=== PATIENT | female | born 1985 | race Caucasian/White ===

== ENCOUNTER 2018-10-20 19:07 | Emergency (ER) | payer OTHER ==
[~2018-10-20] VITALS: Ht 162.6 cm; Wt 79.4 kg
[~2018-10-20 19:07] MED LIST: BAYER CHEWABLE81 MG PO; GLYBURIDE1.25 MG PO; LEVOXYL137 MCG PO; NAPROXEN500 MG PO; PERCOCET 5-3251 EACH PO; SYNTHROID112 MCG PO; SYNTHROID200 MCG PO; VITAMIN C500 M1 PO; VITAMIN D1000 UNIT PO
--- OUTSIDE RECORDS SUMMARY | 2018-10-20 19:12 | XMS ---
PreManage Notification: EL CLARK Security Powder Hand Events No recent Security Events currently on file CRITERIA MET - [facility] - 2 Visits in 30 Days CARE PROVIDERS There are no care providers on record at this time. Darryl has no Care Guidelines for this patient. oCrby VISIT COUNT (12 MO.) [facility] NOTE: Visits indicate total known visits. ED/C VISIT TRACKING (12 MO.) 10/20/2018 19:08 [facility] [place] TYPE: Emergency COMPLAINT: - VAGINAL DISCHARGE 10/18/2018 12:26 [facility] [place] TYPE: Emergency COMPLAINT: - ABD PAIN INPATIENT VISIT TRACKING (12 MO.) No inpatient visits to display in this time frame [email or web address]
== END 2018-10-20 20:38 | disposition home or self-care (01) ==
LOC: ED 19:07
DX: O03.9 Complete or unspecified spontaneous abortion without complication (principal); E03.9 Hypothyroidism, unspecified; F17.200 Nicotine dependence, unspecified, uncomplicated; Z91.048 Other nonmedicinal substance allergy status; Z91.041 Radiographic dye allergy status; Z88.1 Allergy status to other antibiotic agents; Z79.899 Other long term (current) drug therapy
CPT/HCPCS: 99283

== ENCOUNTER 2018-12-12 06:56 | Day surgery (SDC) | payer OTHER ==
[~2018-12-12] VITALS: Ht 162.6 cm; Wt 83.9 kg
--- NOTE | 2018-12-12 09:41 | NUR ---
12/12/18 0941 Kia Mooney 0931- PT ARRIVES TO PACU ALERT AND ORIENTED. REPORTS SOME CRAMPING PAIN. DENIES NAUSEA OR DIZZINESS. RESP EVEN AND UNLABORED. OXYGEN SAT MID 90'S ON RA. 0937- PT SITTING UP IN BED DRINKING WATER. TOLERATING WELL. PT REPORTS NO DIZZINESS OR NAUSEA.
[2018-12-12] MEDS ORDERED: MOTRIN IB200 MG PO ×2 (09:47→09:49)
[2018-12-12] MEDS ORDERED: NORCO 5-325 TA1 EACH PO (09:48)
--- NOTE | 2018-12-13 07:53 | EKG ---
[facility] [address] [facility] [place] [address] Signed Normal sinus rhythm Normal ECG No previous ECGs available Confirmed by ALFONSO DOBSON MD ([id number]) on 12/13/2018 7:53:16 AM Electronically Signed By: ALFONSO DOBSON MD 12/13/18 0753 PATIENT NAME: EDUARDONATHanna GILLIAN Electrocardiogram DATE OF : 89 PHYSICIAN: ALFONSO DOBSON MD REPORT #: [id number] REPORT IS CONFIDENTIAL AND NOT TO BE RELEASED WITHOUT AUTHORIZATION
--- NOTE | 2018-12-18 13:48 | OR ---
[facility] [address] [place] [address] Signed DATE OF OPERATION: 12/12/2018 SURGEON: Jordan Mcgee DO PREOPERATIVE DIAGNOSES: 1. Abnormal uterine bleeding. 2. Thickened endometrium consistent with retained products of conception. 3. Tobacco use disorder. POSTOPERATIVE DIAGNOSES: 1. Abnormal uterine bleeding. 2. Thickened endometrium, however, no evidence of retained products of conception. 3. Tobacco use. PROCEDURES PERFORMED: 1. Hysteroscopy. 2. Dilation and curettage. ANESTHESIA: MAC. ESTIMATED BLOOD LOSS: 10 mL. FLUIDS: Fluid deficit, 235 mL. SPECIMENS: Endometrial curettings. FINDINGS: Normal external genitalia. Normal vagina and normal cervix. On hysteroscopy, normal cervical canal and normal-appearing uterine cavity without evidence of fibroids or polyps. The endometrium does look somewhat thickened. Tubal ostia are normal bilaterally. COMPLICATIONS: None. INDICATIONS: Electronically Signed By: JORDAN MCGEE DO 12/18/18 1348 PATIENT NAME: EL AGUILAR OPERATIVE REPORT DATE OF : [birth year] REPORT #: [id number] PHYSICIAN: JORDAN MCGEE DO PCP: PALLAVI BRITO REPORT IS CONFIDENTIAL AND NOT TO BE RELEASED WITHOUT AUTHORIZATION [facility] [address] [place] [id number] Signed Ms. Aguilar is a pleasant 33-year-old female who had a recent miscarriage with documented decreasing quant hCGs. This was approximately 2 months ago. She has continued to bleed since the miscarriage and does not believe she passed any products of conception. Quant hCG was negative. However, ultrasound demonstrated thickened endometrium that was heterogeneous consistent with retained products of conception. The patient was consented for hysteroscopy, D and C. Risks, benefits, and alternatives were discussed in detail with the patient. The patient has an allergy to doxycycline, was not given doxycycline preoperatively. DESCRIPTION OF PROCEDURE: The patient taken to the operating room and time-out was performed to confirm correct patient, correct procedure. MAC anesthesia was adequately established and the patient was prepped and draped in the dorsal lithotomy position with feet in Yellofin stirrups. ICPs were on running and no preop heparin was indicated. Again, doxycycline was deferred due to her allergy. The weighted speculum was placed in the vagina and the anterior lip of the cervix was grasped with an Allis clamp. The cervix was serially dilated using Hegar dilators to a #7. Operative hysteroscope was placed in the cervical os and advanced under direct visualization of the uterine cavity. Normal cervical canal was noted. Once in the uterine cavity, normal tubal ostia were noted bilaterally. No intrauterine abnormalities noted except for slightly thickened endometrium. Decision was made to proceed with curettage. A MyoSure Lite device was selected and circumferential curettage was performed without difficulty. The hysteroscope was withdrawn. Hemostasis was appreciated. The patient was taken to PACU in good and stable condition. Sponge, needle, and instrument counts were correct x2 at the end of the procedure. DO CAITLYN Crhistianson/DESTIN /[id number] Copies: Electronically Signed By: JORDAN MCGEE, DO 12/18/18 1348 PATIENT NAME: EL AGUILAR OPERATIVE REPORT DATE OF : [birth year] REPORT #: [id number] PHYSICIAN: JORDAN MCGEE DO PCP: PALLAVI BRITO REPORT IS CONFIDENTIAL AND NOT TO BE RELEASED WITHOUT AUTHORIZATION [address] [address] Signed ~ Electronically Signed By: JORDAN MCGEE, DO 12/18/18 1348 PATIENT NAME: EL AGUILAR OPERATIVE REPORT DATE OF : [birth year] REPORT #: [id number] PHYSICIAN: JORDAN MCGEE DO PCP: PALLAVI BRITO REPORT IS CONFIDENTIAL AND NOT TO BE RELEASED WITHOUT AUTHORIZATION
== END 2018-12-12 10:05 | disposition home or self-care (01) ==
LOC: DS 06:56 → OPS 06:56 → DS 08:45 → OPS 10:05
PROVIDERS: Obstetrics & Gynecology
PROC: 0UDB8ZZ Extraction of Endometrium, Via Natural or Artificial Opening Endoscopic (ICD-10-PCS; principal; 2018-12-12 08:45)
DX: N93.9 Abnormal uterine and vaginal bleeding, unspecified (principal); R93.89 Abnormal findings on diagnostic imaging of other specified body structures; E03.9 Hypothyroidism, unspecified; E06.3 Autoimmune thyroiditis; F17.210 Nicotine dependence, cigarettes, uncomplicated; Z88.1 Allergy status to other antibiotic agents; Z91.041 Radiographic dye allergy status; Z79.899 Other long term (current) drug therapy
CPT/HCPCS: 00952; 93005; 93010; J1100; J1885; J2250; J2405; J2704; J3010; J7120

== ENCOUNTER → 2019-08-22 | Emergency (ER) | payer SELFPAY ==
[~2019-08-22] VITALS: Ht 162.6 cm; Wt 83.9 kg
[~2019-08-22] MED LIST changes: +ACETAMINOPHEN-1 EAC1 PO; +CRUTCH1 EACH MISC; +MOTRIN IB200 MG PO; +NORCO 5-325 TA1 EACH PO
--- OUTSIDE RECORDS SUMMARY | ~2019-08-22 | XMS | Encounter Summary ---
Demographics + + + | Address | [address] | | | [place] [address] | + + + | Home Phone | | + + + | Preferred Language | Unknown | + + + | Marital Status | | + + + | Protestant Affiliation | Unknown | + + + | Race | White | + + + | Ethnic Group | Not or | + + + Author + + + | Author | [facility] | + + + | Organization | [facility] | + + + | Address | Unknown | + + + | Phone | Unavailable | + + + Support + + +---------+ + | Name | Relationship | Address | Phone | + + +---------+ + | Brittnee Wells | ECON | Unknown | | + + +---------+ + Care Team Providers + +------+ + | Care Blowing Engineer Name | Role | Phone | + +------+ + | Zoe Stephen | PCP | | + +------+ + Reason for Visit + + + | Reason | Comments | + + + | Prior Authorization | | | Request | | + + + Encounter Details +--------+ + + + + | Date | Type | Department | Care Team | Description | +--------+ + + + + | 06/08/ | MyChart | University | Koki Jha MD | Prior Authorization | | 2016 | Encounter | Fertility | [address] | | | | | Consultants at [facility] | [place], [place] | | | | | [address] | [address] | | | | | Mailcode: [facility] | [phone] | | | | | [facility] | | | | | | and Healing, | | | | | | Building | | | | | | Floor [place], [place] | | | | | | [address] | | | | | | [phone] | | | +--------+ + + + + Social History + + + +--------+------+ | Tobacco Use | Types | Packs/Day | Years | Date | | | | | Used | | + + + +--------+------+ | Current Every Day | Cigarettes | 0.5 | | | | Smoker | | | | | + + + +--------+------+ + + +---------+ + | Alcohol Use | Drinks/Week | oz/Week | Comments | + + +---------+ + | Yes | 0 Standard drinks | 0.0 | weekend drinking | | | or equivalent | | | + + +---------+ + + + + | Sex Assigned at | Date Recorded | | | | + + + | Not on file | | + + + + + + + | Job Start Date | Occupation | Industry | + + + + | Not on file | Not on file | Not on file | + + + + + + + + | Travel History | Travel Start | Travel End | + + + + + + | No recent travel history available. | + + documented as of this encounter Plan of Treatment Not on filedocumented as of this encounter Visit Diagnoses Not on filedocumented in this encounter"
--- OUTSIDE RECORDS SUMMARY | ~2019-08-22 | XMS | Encounter Summary ---
Demographics + + + | Address | [address] | | | [place] [address] | + + + | Home Phone | | + + + | Preferred Language | Unknown | + + + | Marital Status | | + + + | Baptist Affiliation | Unknown | + + + | Race | White | + + + | Ethnic Group | Not or | + + + Author + + + | Author | [facility] | + + + | Organization | [facility] | + + + | Address | Unknown | + + + | Phone | Unavailable | + + + Support + + +---------+ + | Name | Relationship | Address | Phone | + + +---------+ + | Brittnee Wells | ECON | Unknown | | + + +---------+ + Care Team Providers + +------+ + | Care Pharmacy Sales Assistant Name | Role | Phone | + +------+ + | Zoe Stephen | PCP | | + +------+ + Encounter Details +--------+ + + + + | Date | Type | Department | Care Team | Description | +--------+ + + + + | 10/30/ | Documentati | [facility]antoja | Paul Wheatley MD | | | 2017 | on | Diabetes Health | [address] | | | | | [facility] | Avani Zhang [place], | | | | | Pavilion [address] | [place] [address] | | | | | [address] | [phone] | | | | | Physician's | | | | | | Pavilion | | | | | | [facility] Pav[facility] | | | | | | [place], [place] | | | | | | [address] | | | | | | [phone] | | | +--------+ + + + [...] Not on filedocumented as of this encounter Procedures + +--------+ + + + | Procedure Name | Priori | Date/Time | Associated Diagnosis | Comments | | | ty | | | | + +--------+ + + + | TSH | Routin | 10/30/2016 | | Results for this | | | e | | | procedure are in the | | | | | | results section. | + +--------+ + + + documented in this encounter Results TSH (10/30/2016) + +-------+ + + + | Component | Value | Ref Range | Performed | Pathologist | | | | | At | Signature | + +-------+ + + + | TSH | 0.58 | uIU/ml | [facility] | | | | | | LAB | | + +-------+ + + + + + | Specimen | + + | Blood - Blood | | (substance) | + + + + + + + | Performing | Address | City/State/Zipcode | Phone Number | | Organization | | | | + + + + + | [facility] | [address] | [place], [place] | | | | [facility] | [address] | | + + + + + documented in this encounter Visit Diagnoses Not on filedocumented in this encounter"
--- OUTSIDE RECORDS SUMMARY | ~2019-08-22 | XMS | Encounter Summary ---
Demographics + + + | Address | [address] | | | [place] [address] | + + + | Home Phone | | + + + | Preferred Language | Unknown | + + + | Marital Status | | + + + | Lutheran Affiliation | Unknown | + + + | Race | White | + + + | Ethnic Group | Not or | + + + Author + + + | Author | [facility] | + + + | Organization | [facility] | + + + | Address | Unknown | + + + | Phone | Unavailable | + + + Support + + +---------+ + | Name | Relationship | Address | Phone | + + +---------+ + | Brittnee Wells | ECON | Unknown | | + + +---------+ + Care Team Providers + +------+ + | Care Farm Loan Representative Name | Role | Phone | + +------+ + | Zoe Stephen | PCP | | + +------+ + Reason for Visit + + + | Reason | Comments | + + + | Lab findings, | | | teaching, guidance, | | | and counseling | | + + + Encounter Details +--------+ + + + + | Date | Type | Department | Care Team | Description | +--------+ + + + + | 07/07/ | Telephone | Juan | Koki Jha MD | Lab findings, | | 2016 | | Fertility | [address] | teaching, guidance, | | | | Consultants at [facility] | [place], [place] | and counseling | | | | [address] | [address] | | | | | Mailcode: [id number] | [phone] | | | | | [facility] | | | | | | and Healing, | | | | | | Building | | | | | | [place], [place] | | | | | | [address] | | | | | | [phone] | | | +--------+ + + + [...] | + +--------+ + + + | PROGESTERONE, SERUM | Routin | 07/09/2016 | Encounter for | Results for this | | - ANDROLOGY LAB | e | | assisted | procedure are in the | | | | | reproductive | results section. | | | | | fertility procedure | | | | | | cycle | | + +--------+ + + + | ESTRADIOL, SERUM - | Routin | 07/09/2016 | Encounter for | Results for this | | ANDROLOGY LAB | e | | assisted | procedure are in the | | | | | reproductive | results section. | | | | | fertility procedure | | | | | | cycle | | + +--------+ + + + documented in this encounter Results PROGESTERONE, SERUM - ANDROLOGY LAB (07/09/2016) + +-------+ + + + | Component | Value | Ref Range | Performed | Pathologist | | | | | At | Signature | + +-------+ + + + | PROGESTERON | <1 | ng/ml | [facility] | | | E, SERUM | | | OGY LAB | | | (UFC) | | | | | + +-------+ + + + + + | Specimen | + + | Blood | + + + + + | Narrative | Performed At | + + + | Progesterone (ng/ml) Ovulatory Cycles Follicular Phase: | | | ND-1.13 Midfollicular Phase: ND-0.98 Midcycle: 0.48-1.72 Luteal | [facility] | | Phase: 0.95-21 | LAB | + + + + + + + + | Performing | Address | City/State/Zipcode | Phone Number | | Organization | | | | + + + + + | [facility] | [address], | [place] [address] | | | | Tenth Floor | | | + + + + + ESTRADIOL, SERUM - ANDROLOGY LAB (07/09/2016) + +-------+ + + + | Component | Value | Ref Range | Performed | Pathologist | | | | | At | Signature | + +-------+ + + + | ESTRADIOL, | 1,299 | pg/ml | [facility] | | | SERUM (UFC) | | | OGY LAB | | + +-------+ + + + + + | Specimen | + + | Blood | + + + + + | Narrative | Performed At | + + + | Estradiol (pg/ml) Ovulatory Cycles Follicular Phase: ND-160 | | | Follicular Phase, Day 2-3: Periovulatory: 34-400 Luteal | [facility] | | Phase: 27-245 | LAB | + + + + + + + + | Performing | Address | City/State/Zipcode | Phone Number | | Organization | | | | + + + + + | [facility] | [address] | [place] [address] | | | | Tenth Floor | | | + + + + + documented in this encounter Visit Diagnoses + + | Diagnosis | + + | Encounter for assisted reproductive fertility procedure cycle - Primary | + + documented in this encounter"
--- OUTSIDE RECORDS SUMMARY | ~2019-08-22 | XMS | Encounter Summary ---
Demographics + + + | Address | [address] | | | [place] [address] | + + + | Home Phone | | + + + | Preferred Language | Unknown | + + + | Marital Status | | + + + | Scientology Affiliation | Unknown | + + + | Race | White | + + + | Ethnic Group | Not or | + + + Author + + + | Author | [facility] | + + + | Organization | [facility] | + + + | Address | Unknown | + + + | Phone | Unavailable | + + + Support + + +---------+ + | Name | Relationship | Address | Phone | + + +---------+ + | Brittnee Wells | ECON | Unknown | | + + +---------+ + Care Team Providers + +------+ + | Care Clergy Member Name | Role | Phone | + +------+ + | Zoe Stephen | PCP | | + +------+ + Reason for Referral Consultation (Routine) +--------+--------+ + + + + | Status | Reason | Specialty | Diagnoses / | Referred By | Referred To | | | | | Procedures | Contact | Contact | +--------+--------+ + + + + | Closed | | | Diagnoses | Abhijeet, | Pnc | | | | | Abnormal | MD Koki | Perinatology | | | | | thyroid | [address] | [address] | | | | | blood test | Ave | [address] | | | | | Procedures | [place] | Geovany Zhang | | | | | CONSULT TO | [phone] | Physician's | | | | | PERINATOLOGY | Phone: | [place] | | | | | | [phone] | [facility] [place] | | | | | | Fax: | [address] | | | | | | [phone] | Phone: | | | | | | | [phone] | | | | | | | Fax: | | | | | | | [phone] | +--------+--------+ + + + + Reason for Visit + + + | Reason | Comments | + + + | Care Coordination | | + + + Encounter Details +--------+ + + + + | Date | Type | Department | Care Team | Description | +--------+ + + + + | 04/04/ | [facility] | [place] | Koki Jha MD | RE:IVF Timeline | | 2016 | Encounter | Fertility | [address] | | | | | Consultants at [facility] | [place], [place] | | | | | [address] | [address] | | | | | Mailcode: [facility] | [phone] | | | | | [facility] | | | | | | and Healing, | | | | | | Building | | | | | | Floor [place], [place] | | | | | | [address] | | | | | | [phone] | | | +--------+ + + + [...] Not on filedocumented as of this encounter Results TSH (05/18/2016 3:18 PM PDT) + +-------+ + + + | Component | Value | Ref Range | Performed | Pathologist | | | | | At | Signature | + +-------+ + + + | TSH | 3.04 | 0.40 - 3.98 | [facility] | | | | | mIU/L | LABORATORY | | | | | | SERVICES, | | | | | | CORE | | + +-------+ + + + + + | Specimen | + + | Blood - Blood | | (substance) | + + + + + | Narrative | Performed At | + + + | TSH reference ranges are influenced by a variety of environmental | [facility] | | influences, age, gender and ethnicity. The supplied reference limits | LABORATORY | | are based on published values utilizing a similar TSH assay, and | SERVICES, CORE | | should be interpreted with caution. | | + + + + + + + + | Performing | Address | City/State/Zipcode | Phone Number | | Organization | | | | + + + + + | [facility] | [address] | [place] [address] | | | SERVICES, CORE | [address] | | | + + + + + VITAMIN D, 25-HYDROXY, SERUM (05/18/2016 3:18 PM PDT) + +-------+ + + + | Component | Value | Ref Range | Performed | Pathologist | | | | | At | Signature | + +-------+ + + + | VITAMIN D | 37.3 | 30 - 80 ng/mL | [facility] | | | 25 HYDROXY | | | LABORATORY | | | | | | SERVICES, | | | | | | CORE | | + +-------+ + + + + + | Specimen | + + | Blood - Blood | | (substance) | + + + + + | Narrative | Performed At | + + + | Reference Interval: 0-18years: Deficiency: <20 ng/mL | [facility] | | Optimum level: >or=20 ng/mL | LABORATORY | | >18years: Deficiency: <20 | SERVICES, CORE | | ng/mL Insufficiency: 20-29 ng/mL | | | Optimum Level: 30-80 ng/mL High: | | | 81-150 ng/ml Toxic: >150 ng/mL | | + + + + + + + + | Performing | Address | City/State/Zipcode | Phone Number | | Organization | | | | + + + + + | [facility] | [address] | [place] [address] | | | SERVICES, [place] | [address] | | | + + + + + documented in this encounter Visit Diagnoses + + | Diagnosis | + + | Encounter for vitamin deficiency screening - Primary Screening for other and | | unspecified endocrine, nutritional, metabolic, and immunity disorders | + + | Screening for viral disease Special screening examination for unspecified viral | | disease | + + | Screen for sexually transmitted diseases Screening examination for venereal disease | + + | Abnormal thyroid blood test Nonspecific abnormal results of thyroid function study | + + documented in this encounter"
--- OUTSIDE RECORDS SUMMARY | ~2019-08-22 | XMS | Encounter Summary ---
Demographics + + + | Address | [address] | | | [place] [address] | + + + | Home Phone | | + + + | Preferred Language | Unknown | + + + | Marital Status | | + + + | Caodaism Affiliation | Unknown | + + + | Race | White | + + + | Ethnic Group | Not or | + + + Author + + + | Author | [facility] | + + + | Organization | [facility] | + + + | Address | Unknown | + + + | Phone | Unavailable | + + + Support + + +---------+ + | Name | Relationship | Address | Phone | + + +---------+ + | Brittnee Wells | ECON | Unknown | | + + +---------+ + Care Team Providers + +------+ + | Care Intensive Care Anaesthetist Name | Role | Phone | + +------+ + | Zoe Stephen | PCP | | + +------+ + Reason for Visit + + + | Reason | Comments | + + + | Suppression Check | | + + + Other (Routine) +--------+--------+ + + + + | Status | Reason | Specialty | Diagnoses / | Referred By | Referred To | | | | | Procedures | Contact | Contact | +--------+--------+ + + + + | Closed | | Reproductive | | Abhijeet, | [facility] | | | | Endocrinology | | MD Koki | Faculty Ch | | | | /Infertility | | [address] | [address] | | | | | | Ave | Ave | | | | | | [place], [place] | Mailcode: | | | | | | [address] | [address] | | | | | | Phone: | for Health | | | | | | [phone] | and Healing, | | | | | | Fax: | [address], | | | | | | [phone] | 10th Floor | | | | | | | [place], [place] | | | | | | | [address] | | | | | | | Phone: | | | | | | | [phone] | | | | | | | Fax: | | | | | | | [phone] | +--------+--------+ + + + + Encounter Details +--------+ + + + + | Date | Type | Department | Care Team | Description | +--------+ + + + + | 06/28/ | Procedure | University | Coleman Emery MD | Suppression Check | | 2016 | | Fertility | [address] | | | | | Consultants at [facility] | [place], [place] | | | | | [address] | [address] | | | | | Mailcode: CH10[facility] | [phone] | | | | | [facility] | | | | | | and Mariah, | | | | | | Building | | | | | | Floor [place], [place] | | | | | | [address] | | | | | | [phone] | | | +--------+ + + + [...] + + documented as of this encounter Progress Notes Coleman Emery MD - 06/28/2016 8:46 AM PDTFormatting of this note might be different from t tessie original. ENDOCRINE MANAGEMENT PROGRESS NOTE 06/28/2016 Day of stimulation: ATTAIN US/E2; Supp Check for Lupron Protocol: 1 HMG / 100 FSH w/Ovidrel Trigger - Abhijeet/hrf Comments: Indication: INF Approach: transvaginal Systems checklist: negative for uterine polyps, myomas, fluid in cavity, ovarian mass and f luid in cul-de-sac. Estradiol level: Lab Results Component Value Date ESTRADIOL 43.2 06/28/2016 Progesterone level: Lab Results Component Value Date PROG 8.9 11/16/2015 FOLLICLE EXAMINATION / ENDOMETRIAL THICKNESS Endometrial thickness: 3.7mm Grade: 1 LARGEST FOLLICLES (Measured in Millimeters) RIGHT OVARY VOLUME: 61f57gj Suppressed LEFT OVARY VOLUME: 60y49zm Suppressed 1 mean 1 mean 2 mean 2 mean 3 mean 3 mean 4 mean 4 mean 5 mean 5 mean 6 mean 6 mean 7 mean 7 mean 8 mean 8 mean 9 mean 9 mean 10 mean 10 mean Additional Follicles: Additional Follicles: Total Follicles: 6 Total Follicles: 6 Interpretation: suppressed by US Plan: check E2 I, Coleman Emery MD, performed all aspects of this ultrasound. documented in this encou nter Plan of Treatment Not on filedocumented as of this encounter Visit Diagnoses + + | Diagnosis | + + | Encounter for assisted reproductive fertility procedure cycle - Primary | + + documented in this encounter"
--- OUTSIDE RECORDS SUMMARY | ~2019-08-22 | XMS | Encounter Summary ---
Demographics + + + | Address | [address] | | | [place] [address] | + + + | Home Phone | | + + + | Preferred Language | Unknown | + + + | Marital Status | | + + + | Sikhism Affiliation | Unknown | + + + | Race | White | + + + | Ethnic Group | Not or | + + + Author + + + | Author | [facility] | + + + | Organization | [facility] | + + + | Address | Unknown | + + + | Phone | Unavailable | + + + Support + + +---------+ + | Name | Relationship | Address | Phone | + + +---------+ + | rBittnee Wells | ECON | Unknown | | + + +---------+ + Care Team Providers + +------+ + | Care Level Glass Forming Machine Operator Name | Role | Phone | + +------+ + | Zoe Stephen | PCP | | + +------+ + Reason for Visit + + + | Reason | Comments | + + + | Infertility Care | | + + + Consultation (Routine) +--------+--------+ + + + + [...] | | | | | Procedures | [place], [place] | [address] | | | | | CONSULT TO | [address] | Physician's | | | | | PERINATOLOGY | Phone: | Pavilion | | | | | | [phone] | [place], [place] | | | | | | Fax: | [address] | | | | | | [phone] | Phone: | | | | | | | [phone] | | | | | | | Fax: | | | | | | | [phone] | +--------+--------+ + + + + Encounter Details +--------+ + + + + | Date | Type | Department | Care Team | Description | +--------+ + + + + | 05/26/ | | Center | Byron Andrade | Infertility Care | | 2016 | Initial | at [facility] [address] MD,MPH [address] | | | | | [address] | [facility] [address] | | | | | [facility] | [address], | | | | | [facility] [place] | [place] [address] | | | | | [address] | [phone] | | | | | [phone] | | | +--------+ + + + [...] + + documented as of this encounter Last Filed Vital Signs + + + + + | Vital Sign | Reading | Time Taken | Comments | + + + + + | Blood Pressure | 128/89 | 05/26/2016 10:58 AM | | | | | PDT | | + + + + + | Pulse | 82 | 05/26/2016 10:58 AM | | | | | PDT | | + + + + + | Temperature | - | - | | + + + + + | Respiratory Rate | - | - | | + + + + + | Oxygen Saturation | 99% | 05/26/2016 10:58 AM | | | | | PDT | | + + + + + | Inhaled Oxygen | - | - | | | Concentration | | | | + + + + + | Weight | 84.1 kg (185 lb 6.5 | 05/26/2016 10:58 AM | | | | oz) | PDT | | + + + + + | Height | 162.6 cm (5' 4") | 05/26/2016 10:58 AM | | | | | PDT | | + + + + + | Body Mass Index | 31.83 | 05/26/2016 10:58 AM | | | | | PDT | | + + + + + documented in this encounter Progress Notes Raymond Antoine, Byron - 05/27/2016 11:04 AM PDTFormatting of this note might be different fro m the original. MFM New Consultation Referring Provider: [facility] Fertility Reason for consultation: Pre-Conception Consult Date of service: 05/27/2016 CC/HPI: 30 y.o., with hypothyroidism, borderline diabetes, for Pre-conception con sult for IVF planning with tubal factor infertility. ROS: Regular cycles. No f/c/n/v, no back pain / flank pain, no GI / complaints. No ru q pain / visual changes / headache. PMH: Hypothyroidism, borderline diabetes, vit D deficiency, infertility PSH: remote umbilical hernial repair FH: Mother and aunt with diabetes on metformin; Patient is a twin and she has additional pair of twin sisters (2 sets) Family History Problem Relation Thyroid Mother OBH: Early SAB x2 6-7 yrs ago OB History Para Term AB SAB TAB Ectopic Multiple Living 2 0 2 2 # Outcome Date GA Lbr Chris/2nd Weight Sex Delivery Anes PTL Lv 2 SAB 1 SAB Meds: PNV, vit D, levothyroxine 175mcg Allergies Allergen Reactions Contrast Medium Hives Doxycycline Hyclate Hives Filed Vitals: 05/26/2016 10:58 AM Height: 1.626 m (5' 4") Weight: 84.1 kg (185 lb 6.5 oz) BP: 128/89 Pulse: 82 SpO2: 99% BMI: 31.81 kg/(m^2) Exam- Gen- NAD, comfortable, well appearing Psych- Mood and behavior appropriate Lab Results Component Value Date A1C 5.9* 05/26/2016 Lab Results Component Value Date TSH 3.04 05/18/2016 Patient Active Problem List Diagnosis Date Noted Borderline diabetes 05/27/2016 Overview Note: Hgb A1C 5.9% Assessment & Plan Note: 05/26/16. We reviewed borderline diabetes screen with Hgb A1C%, also referred to as "pre-d iabetes". She does not meet criteria for overt T2DM. We reviewed importance of dietary c hoices, exercise and maintenance of healthy weight. We reviewed that women with borderline diabetes may have higher risk of glucose intolerance or mayra gestational diabetes in early . Diabetes in increases risk for anomaly, loss, g rowth abnormalities, and preeclampsia. For women with borderline diabetes en tering there is no clear benefit of metformin. Especially since she appears to h ave normal ovulatory cycles and does not carry a diagnosis of PCOS. Her infertility is repo rted as tubal factor. We did review metformin use for potential benefit, but patient had G I intolerance to metformin in the past (which she tried as part of fertility planning with [facility]). She would prefer dietary modification and light exercise and I agreed that this is reasonable. Overall, I feel comfortable with her pursuing IVF at this time. We agreed not t o pursue metformin, but will maintain healthy lifestyle choices to optimize health going int o . I would recommend early glucola challenge in (2hr GTT). If this is abnormal, we would recommend glucometer, CBG log and nutrition consult. If she was unable t o meet specific glucose targets, medications such as metformin or insulin will be recommende d. Finally, we reviewed her plan for 2-embryo transfer and risk of multiple gestation. We discussed heightened risks of GDM, and preeclampsia in this scenario. She ex pressed understanding and she notes that she herself is a twin, and her mother gave to two sets of twins. She will take today's information into consideration in her IVF planning. 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 We reviewed hypothyroidism with +anti-TPO antibodies and possible impact on futu re . Previously had TSH level of 40 in February but responded well to levothyroxine 17 5mcg. TSH decreased to 0.92 on 05/03 but then increased to 3.0 on 05/18. We reviewed importa nce of compliance with treatment and we reviewed optimal strategy of taking her thyroid medi cation on an empty stomach 30-60 min prior to meals. Substances such as calcium may impair absorption. We reviewed goal TSH <2.5-3.0 to optimize outcomes. Poorly controlle d thyroid disorder can increase risk for loss, growth restriction, preeclamp gopal. High TSH levels (low thyroid hormone levels) in may also impact neurodevelop ment in offspring. At current TSH level, and in light of ongoing treatment, she may pursue IVF without further modification. We would repeat TFT's 4-6 wks in until thyroid hormone / TSH level s are at goal. Thyroid medication often needs to be titrated up in later due to i ncrease /placental demands over . Plan: -- Ok to pursue IVF planning -- Continue Levothyroxine at 175mcg; take on empty stomach 30-60 min before meals -- Dietary modification and light exercise in light of borderline DM -- Per patient preference, follow up with MFM or General OB for care -- Early Glucose challenge with I spent 45 minutes aekh-sl-tptu with the patient of which over 50% was spent in counseling regarding hypothyroidism, borderline diabetes, pre-conception care Byron Andrade MD, MPH Maternal Medicine documented in this en counter Plan of Treatment Not on filedocumented as of this encounter Visit Diagnoses + + | Diagnosis | + + | 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
--- OUTSIDE RECORDS SUMMARY | ~2019-08-22 | XMS | Encounter Summary ---
Demographics + + + | Address | [address] | | | [place] [address] | + + + | Home Phone | | + + + | Preferred Language | Unknown | + + + | Marital Status | | + + + | Anabaptism Affiliation | Unknown | + + + | Race | White | + + + | Ethnic Group | Not or | + + + Author + + + | Author | [facility] | + + + | Organization | [facility] | + + + | Address | Unknown | + + + | Phone | Unavailable | + + + Support + + +---------+ + | Name | Relationship | Address | Phone | + + +---------+ + | Brittnee Wells | ECON | Unknown | | + + +---------+ + Care Team Providers + +------+ + | Care Production Boring Machine Operator Name | Role | Phone | + +------+ + | Zoe Stephen | PCP | | + +------+ + Reason for Visit + + + | Reason | Comments | + + + | Trial Transfer | | + + + | Ultrasound Follicle | | | Exam | | + + + Other (Routine) +--------+--------+ + + + + | Status | Reason | Specialty | Diagnoses / | Referred By | Referred To | | | | | Procedures | Contact | Contact | +--------+--------+ + + + + | Closed | | Reproductive | | Abhijeet, | [facility] | | | | Endocrinology | | MD Koki | [facility] | | | | /Infertility | | [address] | [address] | | | | | | Ave | Ave | | | | | | [place], [place] | Mailcode: | | | | | | [address] | [facility] | | | | | | Phone: | for Health | | | | | | [phone] | and Healing, | | | | | | Fax: | Building [address], | | | | | | [phone] | 10th Floor | | | | | | | [place], [place] | | | | | | | [address] | | | | | | | Phone: | | | | | | | [phone] | | | | | | | Fax: | | | | | | | [phone] | +--------+--------+ + + + + Encounter Details +--------+ + + + + | Date | Type | Department | Care Team | Description | +--------+ + + + + | 07/13/ | Procedure | [facility] | Aarti Christian MD | Trial Transfer; | | 2016 | | Fertility | [address] | Ultrasound Follicle | | | | Consultants at [facility] | [address] [place], | Exam | | | | [address] | [place] [address] | | | | | Mailcode: [facility] | [phone] | | | | | [facility] | | | | | | and Healing, | | | | | | Building | | | | | | Floor [place], [place] | | | | | | [address] | | | | | | [phone] | | | +--------+ + + + [...] documented as of this encounter Progress Notes Aarti Christian MD - 05/03/2016 2:56 PM PDTFormatting of this note might be different from scott de oliveira original. Name: Melo Aguilar Date 05/03/2016 LMP: No LMP recorded. Screening Ultrasound: Approach: transvaginal Indication: TT/AFC for IVF screening Basal Antral Follicles: Right ovary: , BAF count: 12 follices Left ovary: , BAF count: 15-16 follicles TT: APARQ was done prior to the procedure. Using sterile techniques a catheter was introduced t hrough the cervix and advanced into the uterine cavity. Trial transfer Depth Position Catheter 6.1cm by US Sharply AV Soft pass Interpretation: Sharply AV uterus, TT without difficulty High BAF Uncontrolled hypothyroidism Plan: Await repeat TFT's Complete Vit D replacement IVF protocol per Aarti Martin MD, personally performed all components of this procedure. documented in this encoun ter Plan of Treatment Not on filedocumented as of this encounter Procedures + +--------+ + + + | Procedure Name | Priori | Date/Time | Associated Diagnosis | Comments | | | ty | | | | + +--------+ + + + | [place] TRANSFER OF | Routin | 05/03/2016 | Encounter for | | | EMBRYO,INTRAUTERINE | e | 3:01 PM | assisted | | | | | PDT | reproductive | | | | | | fertility procedure | | | | | | cycle | | + +--------+ + + + | COLLECTIONS PROFESSIONAL CYTOLOGY (PAP) | Routin | 05/03/2016 | Cervical cancer | Results for this | | | e | | screening | procedure are in the | | | | | | results section. | + +--------+ + + + documented in this encounter Results COLLECTIONS PROFESSIONAL CYTOLOGY (PAP) (05/03/2016) + + + + + + | Component | Value | Ref Range | Performed | Pathologist | | | | | At | Signature | + + + + + + | COLLECTIONS PROFESSIONAL | SOURCE OF SPECIMEN: | | [facility] | | | CYTOLOGY | CervicalReason for | | DEPARTMENT | | | | Examination: Screening | | OF | | | | Pap (Low Risk)CLINICAL | | PATHOLOGY | | | | HISTORY: OtherPrevious | | | | | | Diagnosis and/or | | | | | | Therapy: IUD: N | | | | | | Interpretation:Negative | | | | | | for Intraepithelial | | | | | | Lesion or Malignancy. | | | | | | | | | | | | Adequacy:Satisfactory | | | | | | for evaluation. | | | | | | Transformation zone | | | | | | absent. Note: | | | | | | Gynecological cytology | | | | | | is a screening test that | | | | | | is subject toboth false | | | | | | positive and false | | | | | | negative results. For | | | | | | that reason, thetest is | | | | | | most reliable when a | | | | | | satisfactory sample is | | | | | | obtained on a | | | | | | regular,repetitive | | | | | | basis.If requested, HPV | | | | | | results will be reported | | | | | | in an addendum on all | | | | | | PAPsmears.My electronic | | | | | | signature indicates that | | | | | | I have personally | | | | | | reviewed alldiagnostic | | | | | | slides, the gross and/or | | | | | | microscopic portion of | | | | | | thisreport and | | | | | | formulated the final | | | | | | diagnosis. | | | | | | Rendering Diagnostician: | | | | | | Yazmin Mcintyre | | | | | | SCT([facility])Cytote[employer]ologis | | | | | | tElectronically Signed | | | | | | 05/05/2016 1:29PM | | | | + + + + + + + + | Specimen | + + | Tissue - Cervix | + + + + + | Narrative | Performed At | + + + | | | + + + + + + + + | Performing | Address | City/State/Zipcode | Phone Number | | Organization | | | | + + + + + | [facility] | [address] | [place] [address] | | | PATHOLOGY | [address] | | | + + + + + documented in this encounter Visit Diagnoses + + | Diagnosis | + + | Cervical cancer screening - Primary Screening for malignant neoplasm of the cervix | + + | Encounter for assisted reproductive fertility procedure cycle | + + documented in this encounter"
--- OUTSIDE RECORDS SUMMARY | ~2019-08-22 | XMS | Encounter Summary ---
Demographics + + + | Address | [address] | | | [place] [address] | + + + | Home Phone | | + + + | Preferred Language | Unknown | + + + | Marital Status | | + + + | Jain Affiliation | Unknown | + + + | Race | White | + + + | Ethnic Group | Not or | + + + Author + + + | Author | [facility] | + + + | Organization | [facility] | + + + | Address | Unknown | + + + | Phone | Unavailable | + + + Support + + +---------+ + | Name | Relationship | Address | Phone | + + +---------+ + | Brittnee Wells | ECON | Unknown | | + + +---------+ + Care Team Providers + +------+ + | Care Inspector Mechanical Name | Role | Phone | + +------+ + | Zoe Stephen | PCP | | + +------+ + Encounter Details +--------+ + + + + | Date | Type | Department | Care Team | Description | +--------+ + + + + | 04/25/ | Documentati | [facility] | Koki Jha MD | | | 2016 | on | Fertility | [address] | | | | | Consultants at [facility] | [place], [place] | | | | | [address] | [address] | | | | | Mailcode: [facility] | [phone] | | | | | [facility] | | | | | | and Healing, | | | | | | | | | | | | Floor [facility] [place] | | | | | | [address] | | | | | | [phone] | | | +--------+ + + + [...] | + +--------+ + + + | LAB REPORTS | | 04/21/2016 | | Results for this | | | | 12:00 AM | | procedure are in the | | | | PDT | | results section. | + +--------+ + + + documented in this encounter Results LAB REPORTS (04/21/2016 12:00 AM PDT) + + + | Narrative | Performed At | + + + | | | + + + documented in this encounter Visit Diagnoses Not on filedocumented in this encounter"
--- OUTSIDE RECORDS SUMMARY | ~2019-08-22 | XMS | Encounter Summary ---
Demographics + + + | Address | [address] | | | [place] [address] | + + + | Home Phone | | + + + | Preferred Language | Unknown | + + + | Marital Status | | + + + | Restorationism Affiliation | Unknown | + + + | Race | White | + + + | Ethnic Group | Not or | + + + Author + + + | Author | [facility] | + + + | Organization | [facility] | + + + | Address | Unknown | + + + | Phone | Unavailable | + + + Support + + +---------+ + | Name | Relationship | Address | Phone | + + +---------+ + | Brittnee Wells | ECON | Unknown | | + + +---------+ + Care Team Providers + +------+ + | Care Associate Genetics Professor Name | Role | Phone | + +------+ + | Zoe Stephen | PCP | | + +------+ + Encounter Details +--------+------+ + + + | Date | Type | Department | Care Team | Description | +--------+------+ + + + | 05/18/ | Lab | Laboratory at [facility] | | Encounter for | | 2015 | | [address] | | vitamin deficiency | | | | [place], [place] | | screening; Abnormal | | | | [address] | | thyroid blood test | | | | [phone] | | | +--------+------+ + + + Social History + + [...] | + +--------+ + + + | VITAMIN D, | Routin | 05/18/2016 | Encounter for | Results for this | | 25-HYDROXY, SERUM | e | 3:18 PM | vitamin deficiency | procedure are in the | | | | PDT | screening | results section. | + +--------+ + + + | TSH | Routin | 05/18/2016 | Abnormal thyroid | Results for this | | | e | 3:18 PM | blood test | procedure are in the | | | | PDT | | results section. | + +--------+ + + + documented in this encounter Results TSH (05/18/2016 3:18 PM [...] | + + + + + | [facility] | [address] | [place] [address] | | | SERVICES, CORE | [address] | | | + [...] | + + + + + | [facility] | [address] | [place] [address] | | | SERVICES, CORE | [address] | | | + + + + + documented in this encounter Visit Diagnoses + + | Diagnosis | + + | Encounter for vitamin deficiency screening Screening for other and unspecified | | endocrine, nutritional, metabolic, and immunity disorders | + + | Abnormal thyroid blood test Nonspecific abnormal results of thyroid function study | + + documented in this encounter"
--- OUTSIDE RECORDS SUMMARY | ~2019-08-22 | XMS | Encounter Summary ---
Demographics + + + | Address | [address] | | | [place] [address] | + + + | Home Phone | | + + + | Preferred Language | Unknown | + + + | Marital Status | | + + + | Jew Affiliation | Unknown | + + + | Race | White | + + + | Ethnic Group | Not or | + + + Author + + + | Author | [facility] | + + + | Organization | [facility] | + + + | Address | Unknown | + + + | Phone | Unavailable | + + + Support + + +---------+ + | Name | Relationship | Address | Phone | + + +---------+ + | Brittnee Wells | ECON | Unknown | | + + +---------+ + Care Team Providers + +------+ + | Care Form Setter Steel Forms Name | Role | Phone | + +------+ + | Zoe Stephen | PCP | | + +------+ + Encounter Details +--------+ + + + + | Date | Type | Department | Care Team | Description | +--------+ + + + + | 03/14/ | [facility] | [facility] | Paul Wheatley MD | RE: High WBC Labs | | 2016 | Encounter | [facility] | [address] | | | | | [facility] | [address] [place], | | | | | Pavilion [address] | [place] [address] | | | | | [address] | [phone] | | | | | Physician's | | | | | | Pavilion | | | | | | [facility] | | | | | | [place], [place] | | | | | | [address] | | | | | | [phone] | | | +--------+ + + + [...]
--- OUTSIDE RECORDS SUMMARY | ~2019-08-22 | XMS | Encounter Summary ---
Demographics + + + | Address | [address] | | | [place] [address] | + + + | Home Phone | | + + + | Preferred Language | Unknown | + + + | Marital Status | | + + + | Yarsani Affiliation | Unknown | + + + | Race | White | + + + | Ethnic Group | Not or | + + + Author + + + | Author | [facility] | + + + | Organization | [facility] | + + + | Address | Unknown | + + + | Phone | Unavailable | + + + Support + + +---------+ + | Name | Relationship | Address | Phone | + + +---------+ + | Brittnee Wells | ECON | Unknown | | + + +---------+ + Care Team Providers + +------+ + | Care Wealth Management Director Name | Role | Phone | + +------+ + | Zoe Stephen | PCP | | + +------+ + Encounter Details +--------+ + + + + | Date | Type | Department | Care Team | Description | +--------+ + + + + | 06/07/ | Pharmacy | [facility] | | | | 2015 | Visit | & [facility] | | | | | | [address] | | | | | | Mailcode: [place] | | | | | | [facility] and | | | | | | Healing, [address] | | | | | | [place], [place] | | | | | | [address] | | | | | | [phone] | | | +--------+ + + + [...]
--- OUTSIDE RECORDS SUMMARY | ~2019-08-22 | XMS | Encounter Summary ---
Demographics + + + | Address | [address] | | | [place] [address] | + + + | Home Phone | | + + + | Preferred Language | Unknown | + + + | Marital Status | | + + + | Lutheran Affiliation | Unknown | + + + | Race | White | + + + | Ethnic Group | Not or | + + + Author + + + | Author | [facility] | + + + | Organization | [facility] | + + + | Address | Unknown | + + + | Phone | Unavailable | + + + Support + + +---------+ + | Name | Relationship | Address | Phone | + + +---------+ + | Brittnee Wells | ECON | Unknown | | + + +---------+ + Care Team Providers + +------+ + | Care Hand Packer/Packager Name | Role | Phone | + +------+ + | Zoe Stephen | PCP | | + +------+ + Encounter Details +--------+------+ + + + | Date | Type | Department | Care Team | Description | +--------+------+ + + + | 11/30/ | Lab | Laboratory, | | Gabriel's disease | | 2015 | | Specimen Collection | | | | | | at [address] | | | | | | [address] | | | | | | [place], | | | | | | [place] [address] | | | | | | [phone] | | | +--------+------+ + + + [...] | + +--------+ + + + | THYROID PEROXIDASE | Routin | 11/30/2015 | Gabriel's | Results for this | | AB, SERUM | e | 11:14 AM | disease | procedure are in the | | | | PST | | results section. | + +--------+ + + + | TSH RECEPTOR AB, | Routin | 11/30/2015 | Gabriel's | Results for this | | SERUM | e | 11:14 AM | disease | procedure are in the | | | | PST | | results section. | + +--------+ + + + | COMPLETE METABOLIC | Routin | 11/30/2015 | Gabriel's | Results for this | | SET | e | 11:14 AM | disease | procedure are in the | | (NA,K,CL,CO2,BUN,CRE | | PST | | results section. | | AT,GLUC,CA,AST,ALT,B | | | | | | ALEXANDER TOTAL,ALK | | | | | | PHOS,ALB,PROT TOTAL) | | | | | + +--------+ + + + | TSH | Routin | 11/30/2015 | Gabriel's | Results for this | | | e | 11:14 AM | disease | procedure are in the | | | | PST | | results section. | + +--------+ + + + | HCG BETA QUANT, | Routin | 11/30/2015 | Gabriel's | Results for this | | PLASMA | e | 11:14 AM | disease | procedure are in the | | | | PST | | results section. | + +--------+ + + + documented in this encounter Results TSH RECEPTOR AB, SERUM (11/30/2015 11:14 AM PST) + + + + + + | Component | Value | Ref Range | Performed | Pathologist | | | | | At | Signature | + + + + + + | TSH | <0.90Comment: | <=1.75 IU/L | [facility] | | | RECEPTOR AB | INTERPRETIVE | | REG UNIV | | | | INFORMATION: Thyroid | | PTH - INT[facility] | | | | Stimulating Hormone | | | | | | Receptor Ab Autoimmune | | | | | | thyroid disease may be | | | | | | confirmed when TRAb | | | | | | testing is | | | | | | positive.Performed by | | | | | | [facility] [employer],[address] | | | | | | [address], [facility],[place] | | | | | | [address] | | | | | | [phone].[employer]. | | | | | | Devante pleitez, | | | | | | Francy HOLDEN. Director | | | | + + + + + + + + | Specimen | + + | Blood - Blood | + + + + + + + | Performing | Address | City/State/Zipcode | Phone Number | | Organization | | | | + + + + + | [facility] | [address] | [place], [place] | | | UNIV PTH - INT[facility] | | [address] | | + + + + + THYROID PEROXIDASE AB, SERUM (11/30/2015 11:14 AM PST) + + + + + + | Component | Value | Ref Range | Performed | Pathologist | | | | | At | Signature | + + + + + + | THYROID | 266.0 (H)Comment: | 0.0 - 9.0 IU/mL | [facility] | | | PEROXIDASE | Performed by [facility] | | REG UNIV | | | AB | Laboratories,[address] | | PTH - INT[facility] | | | | [place] [address] | | | | | | [phone]. | | | | | | Devante pleitez, | | | | | | , Francy. Director | | | | + + + + + + + + | Specimen | + + | Blood - Blood | + + + + + + + | Performing | Address | City/State/Zipcode | Phone Number | | Organization | | | | + + + + + | [facility] | [address] | [place], [place] | | | UNIV PTH - INT[facility] | | [address] | | + + + + + TSH (11/30/2015 11:14 AM PST) + + + + + + | Component | Value | Ref Range | Performed | Pathologist | | | | | At | Signature | + + + + + + | TSH | 6.54 (H) | 0.40 - 3.98 | [facility] | | | | | mIU/L | LABORATORY | | | | | | SERVICES, | | | | | | CORE | | + + + + + + | TSH | | uIU/mL | [facility] | | | | | | LABORATORY | | | | | | SERVICES, | | | | | | CORE | | + + + + + [...] + + + + + | [facility] | [address] | [place] [phone] | | | SERVICES, CORE | [address] | | | + + + + + COMPLETE METABOLIC SET (NA,K,CL,CO2,BUN,CREAT,GLUC,CA,AST,ALT,BILI TOTAL,ALK PHOS,ALB,PROT TOTAL) (11/30/2015 11:14 AM PST) + + + + + + | Component | Value | Ref Range | Performed | Pathologist | | | | | At | Signature | + + + + + + | GLUCOSE, | 103 (H) | 60 - 99 mg/dL | [facility] | | | PLASMA | | | LABORATORY | | | (LAB) | | | SERVICES, | | | | | | CORE | | + + + + + + | BUN, PLASMA | 9 | 6 - 20 mg/dL | [facility] | | | (LAB) | | | LABORATORY | | | | | | SERVICES, | | | | | | CORE | | + + + + + + | CREATININE | 0.59 (L) | 0.60 - 1.10 | [facility] | | | PLASMA | | mg/dL | LABORATORY | | | (LAB) | | | SERVICES, | | | | | | CORE | | + + + + + + | EGFR | >60 | >60 mL/min | [facility] | | | - | | | LABORATORY | | | TURKISH | | | SERVICES, | | | | | | CORE | | + + + + + + | EGFR NON | >60 | >60 mL/min | [facility] | | | -DOREEN | | | LABORATORY | | | RICAN | | | SERVICES, | | | | | | CORE | | + + + + + + | SODIUM, | 138 | 136 - 145 | [facility] | | | PLASMA | | mmol/L | LABORATORY | | | (LAB) | | | SERVICES, | | | | | | CORE | | + + + + + + | POTASSIUM, | 3.9 | 3.4 - 5.0 | [facility] | | | PLASMA | | mmol/L | LABORATORY | | | (LAB) | | | SERVICES, | | | | | | CORE | | + + + + + + | CHLORIDE, | 107 | 97 - 108 mmol/L | [facility] | | | PLASMA | | | LABORATORY | | | (LAB) | | | SERVICES, | | | | | | CORE | | + + + + + + | TOTAL CO2, | 24 | 21 - 32 mmol/L | [facility] | | | PLASMA | | | LABORATORY | | | (LAB) | | | SERVICES, | | | | | | CORE | | + + + + + + | CALCIUM, | 9.5 | 8.6 - 10.2 | [facility] | | | PLASMA | | mg/dL | LABORATORY | | | (LAB) | | | SERVICES, | | | | | | CORE | | + + + + + + | BILIRUBIN | 0.4 | 0.3 - 1.2 mg/dL | [facility] | | | TOTAL | | | LABORATORY | | | | | | SERVICES, | | | | | | CORE | | + + + + + + | TOTAL | 8.2 | 6.4 - 8.2 g/dL | [facility] | | | PROTEIN, | | | LABORATORY | | | PLASMA | | | SERVICES, | | | (LAB) | | | CORE | | + + + + + + | ALBUMIN, | 4.1 | 3.5 - 4.7 g/dL | [facility] | | | PLASMA | | | LABORATORY | | | (LAB) | | | SERVICES, | | | | | | CORE | | + + + + + + | ALK PHOS | 61 | 42 - 98 U/L | [facility] | | | | | | LABORATORY | | | | | | SERVICES, | | | | | | CORE | | + + + + + + | AST(SGOT) | 23 | <=41 U/L | [facility] | | | | | | LABORATORY | | | | | | SERVICES, | | | | | | CORE | | + + + + + + | ALT (SGPT) | 46 | <=60 U/L | [facility] | | | | | | LABORATORY | | | | | | SERVICES, | | | | | | CORE | | + + + + + + | ANION | 6 | 4 - 11 mmol/L | [facility] | | | GAP(ALB | | | LABORATORY | | | CORRECTED) | | | SERVICES, | | | | | | CORE | | + + + + + + | POTASSIUM | No Hemo | | [facility] | | | CMNT | | | LABORATORY | | | | | | SERVICES, | | | | | | CORE | | + + + + + + | BILI T CMNT | No Hemo | | [facility] | | | | | | LABORATORY | | | | | | SERVICES, | | | | | | CORE | | + + + + + + | AST CMNT | No Hemo | | [facility] | | | | | | LABORATORY | | | | | | SERVICES, | | | | | | CORE | | + + + + + + | ANION GAP | 7 | mmol/L | [facility] | | | | | | LABORATORY | | | | | | SERVICES, | | | | | | CORE | | + + + + + + + + | Specimen | + + | Blood - Blood | | (substance) | + + + + + | Narrative | Performed At | + + + | GFR is estimated using the MDRD equation recommended by the | [facility] | | National Kidney Disease Education Program. Estimated GFR | LABORATORY | | Interpretive Information: <60 mL/min/1.73 sq m | [facility], CORE | | Chronic Kidney Disease <15 mL/min/1.73 sq m | | | Kidney Failure Estimated GFR greater that 60 mL/min/1.73 sq m is of | | | limited clinical value. The MDRD equation is not valid in the | | | following situations: - Patients under 18 years of age - Severe | | | malnutrition or obesity - Vegetarian diet - Rapidly changing kidney | | | function | | + + + + + + + + | Performing | Address | City/State/Zipcode | Phone Number | | Organization | | | | + + + + + | [facility] | [address] | [place] [address] | | | [place], [place] | [address] | | | + + + + + HCG BETA, PLASMA (11/30/2015 11:14 AM PST) + +-------+ + + + | Component | Value | Ref Range | Performed | Pathologist | | | | | At | Signature | + +-------+ + + + | HCG BETA, | <1 | <3 mIU/mL | [facility] | | | PLASMA | | | LABORATORY | | | | | | SERVICES, | | | | | | CORE | | + +-------+ + + + + + | Specimen | + + | Blood - Blood | | (substance) | + + + + + | Narrative | Performed At | + + + | HCG Reference ranges Males: | [facility] | | <2 mIU/mL Non- Females: <3 mIU/mL | LABORATORY | | Females: >5 mIU/mL HCG Ranges During Normal | SERVICES, CORE | | : Weeks Post Last Menstrual Period: Approximate hCG | | | Range, mIU/mL 3-4 weeks | | | 9 - 130 4-5 weeks | | | 75 - 2600 5-6 weeks | | | 850 - 72327 6-7 weeks | | | 4000 - 183136 7-12 weeks | | | 63262 - 126076 12-16 weeks | | | 28030 - 509522 16-29 | | | weeks 1400 - 21039 | | | 29-41 weeks 940 - 80945 | | | | | + + + + + + + + | Performing | Address | City/State/Zipcode | Phone Number | | Organization | | | | + + + + + | [facility] | [address] | [place] [address] | | | [place] [facility] | [address] | | | + + + + + documented in this encounter Visit Diagnoses + + | Diagnosis | + + | Gabriel's disease Chronic lymphocytic thyroiditis | + + documented in this encounter"
--- OUTSIDE RECORDS SUMMARY | ~2019-08-22 | XMS | Encounter Summary ---
Demographics + + + | Address | [address] | | | [place] [address] | + + + | Home Phone | | + + + | Preferred Language | Unknown | + + + | Marital Status | | + + + | Confucianism Affiliation | Unknown | + + + | Race | White | + + + | Ethnic Group | Not or | + + + Author + + + | Author | [facility] | + + + | Organization | [facility] | + + + | Address | Unknown | + + + | Phone | Unavailable | + + + Support + + +---------+ + | Name | Relationship | Address | Phone | + + +---------+ + | Brittnee Wells | ECON | Unknown | | + + +---------+ + Care Team Providers + +------+ + | Care Ems Manager Name | Role | Phone | + +------+ + | Zoe Stephen | PCP | | + +------+ + Reason for Visit Other (Routine) +--------+--------+ + + + + [...] [address] | | | | | | [place], [place] | Mailcode: | | | | | | [address] | [facility] | | | | | | Phone: | for Health | | | | | | [phone] | and Healing, | | | | | | Fax: | Building [address], | | | | | | [phone] | 10th Floor | | | | | | | [facility] [place] | | | | | | | [address] | | | | | | | Phone: | | | | | | | [phone] | | | | | | | Fax: | | | | | | | [phone] | +--------+--------+ + + + + Encounter Details +--------+ + + + + | Date | Type | Department | Care Team | Description | +--------+ + + + + | 07/14/ | Procedure | University | Koki Jha MD | Canceled (Provider | | 2016 | | Fertility | [address] | Request) | | | | Consultants at [facility] | [place], [place] | | | | | [address] | [address] | | | | | Mailcode: [facility] | [phone] | | | | | [facility] | | | | | | and Healing, | | | | | | | | | | | | Floor [facility] [place] | | | | | | [address] | | | | | | [phone] | | | +--------+ + + + [...] documented as of this encounter Progress Notes Mallika Edward - 07/14/2016 11:00 AM PDT Closed at the request of Nixon Valenciaice Supervisor Labor Gang, [facility] . oki Jha MD - 07/14/2016 9:01 AM PDTPt called. D3 embryo report reviewed. Discussed options of fresh vs frozen ET. Pt has tubal disease, but n/e of hydro. Also, possible PCOS, but peak E2 not elevated. Most recent TSH 4.5. Thyroxine dos e increased a few weeks ago, but has not had a rpt TSH. Pt desires fresh ET especially if & gt; 1 good quality blast. P DTdocumented in this encounter Plan of Treatment Not on filedocumented as of this encounter Visit Diagnoses Not on filedocumented in this encounter"
--- OUTSIDE RECORDS SUMMARY | ~2019-08-22 | XMS | Encounter Summary ---
Demographics + + + | Address | [address] | | | [place] [address] | + + + | Home Phone | | + + + | Preferred Language | Unknown | + + + | Marital Status | | + + + | Amish Affiliation | Unknown | + + + | Race | White | + + + | Ethnic Group | Not or | + + + Author + + + | Author | [facility] | + + + | Organization | [facility] | + + + | Address | Unknown | + + + | Phone | Unavailable | + + + Support + + +---------+ + | Name | Relationship | Address | Phone | + + +---------+ + | Brittnee Wells | ECON | Unknown | | + + +---------+ + Care Team Providers + +------+ + | Care Systems Analyst Developer Name | Role | Phone | + +------+ + | Zoe Stephen | PCP | | + +------+ + Reason for Visit + + + | Reason | Comments | + + + | Financial Review | | + + + Encounter Details +--------+ + + + + | Date | Type | Department | Care Team | Description | +--------+ + + + + | 08/07/ | MyChart | University | John Espinoza MD | RE:Financial | | 2016 | Encounter | Fertility | [address] | information for your | | | | Consultants at [facility] | [place], [place] | August 11 appt | | | | [address] | [address] | | | | | Mailcode: [id number] | [phone] | | | | | [facility] | | | | | | and Healing, | | | | | | Building | | | | | | Floor [place], [place] | | | | | | [address] | | | | | | [phone] | | | +--------+ + + + [...]
--- OUTSIDE RECORDS SUMMARY | ~2019-08-22 | XMS | Encounter Summary ---
Demographics + + + | Address | [address] | | | [place] [address] | + + + | Home Phone | | + + + | Preferred Language | Unknown | + + + | Marital Status | | + + + | Congregational Affiliation | Unknown | + + + | Race | White | + + + | Ethnic Group | Not or | + + + Author + + + | Author | [facility] | + + + | Organization | [facility] | + + + | Address | Unknown | + + + | Phone | Unavailable | + + + Support + + +---------+ + | Name | Relationship | Address | Phone | + + +---------+ + | Brittnee Wells | ECON | Unknown | | + + +---------+ + Care Team Providers + +------+ + | Care Set Up Mechanic Automatic Line Name | Role | Phone | + [...] + + + + | 06/28/ | Telephone | [facility] | Koki Jha MD | Lab findings, | | 2016 | | Fertility | [address] | teaching, guidance, | | | | Consultants at [facility] | [place], [place] | and counseling | | | | [address] | [address] | | | | | Mailcode: [id number] | [phone] | | | | | [facility] | | | | | | and Healing, | | | | | | Building | | | | | | [place], [place] | | | | | | [address] | | | | | | [phone] | | | +--------+ + + + [...]
--- OUTSIDE RECORDS SUMMARY | ~2019-08-22 | XMS | Encounter Summary ---
Demographics + + + | Address | [address] | | | [place] [address] | + + + | Home Phone | | + + + | Preferred Language | Unknown | + + + | Marital Status | | + + + | Jewish Affiliation | Unknown | + + + | Race | White | + + + | Ethnic Group | Not or | + + + Author + + + | Author | [facility] | + + + | Organization | [facility] | + + + | Address | Unknown | + + + | Phone | Unavailable | + + + Support + + +---------+ + | Name | Relationship | Address | Phone | + + +---------+ + | Brittnee Wells | ECON | Unknown | | + + +---------+ + Care Team Providers + +------+ + | Care Capsule Machine Operator Name | Role | Phone | + +------+ + | Zoe Stephen | PCP | | + +------+ + Encounter Details +--------+ + + + + | Date | Type | Department | Care Team | Description | +--------+ + + + + | 07/08/ | Pharmacy | Outpatient Retail | | | | 2015 | Visit | [facility] | | | | | | [address] | | | | | | [place] | | | | | | [place] [address] | | | +--------+ + + + [...]
--- OUTSIDE RECORDS SUMMARY | ~2019-08-22 | XMS | Encounter Summary ---
Demographics + + + | Address | [address] | | | [place] [address] | + + + | Home Phone | | + + + | Preferred Language | Unknown | + + + | Marital Status | | + + + | Yazdanism Affiliation | Unknown | + + + | Race | White | + + + | Ethnic Group | Not or | + + + Author + + + | Author | [facility] | + + + | Organization | [facility] | + + + | Address | Unknown | + + + | Phone | Unavailable | + + + Support + + +---------+ + | Name | Relationship | Address | Phone | + + +---------+ + | Brittnee Wells | ECON | Unknown | | + + +---------+ + Care Team Providers + +------+ + | Care Vmware Systems Administrator Name | Role | Phone | + +------+ + | Zoe Stephen | PCP | | + +------+ + Reason for Visit + + + | Reason | Comments | + + + | Follow-up Plan | | + + + Encounter Details +--------+ + + + + | Date | Type | Department | Care Team | Description | +--------+ + + + + | 12/02/ | Telephone | [place] | Koki Jha MD | Follow-up Plan | | 2016 | | Fertility | [address] | | | | | Consultants at [facility] | [place], [place] | | | | | [address] | [address] | | | | | Mailcode: [id number] | [phone] | | | | | [facility] | | | | | | and [place], | | | | | | Building | | | | | | Floor [place], [place] | | | | | | [address] | | | | | | [phone] | | | +--------+ + + + [...] | + +--------+ + + + | RADIOLOGY | | 12/02/2015 | | Results for this | | | | 12:00 AM | | procedure are in the | | | | PST | | results section. | + +--------+ + + + documented in this encounter Results RADIOLOGY (12/02/2015 12:00 AM PST) + + + | Narrative | Performed At | + + + | | | + + + documented in this encounter Visit Diagnoses Not on filedocumented in this encounter"
--- OUTSIDE RECORDS SUMMARY | ~2019-08-22 | XMS | Encounter Summary ---
Demographics + + + | Address | [address] | | | [place] [address] | + + + | Home Phone | | + + + | Preferred Language | Unknown | + + + | Marital Status | | + + + | Christianity Affiliation | Unknown | + + + | Race | White | + + + | Ethnic Group | Not or | + + + Author + + + | Author | [facility] | + + + | Organization | [facility] | + + + | Address | Unknown | + + + | Phone | Unavailable | + + + Support + + +---------+ + | Name | Relationship | Address | Phone | + + +---------+ + | Brittnee Wells | ECON | Unknown | | + + +---------+ + Care Team Providers + +------+ + | Care Tourist Guide Name | Role | Phone | + +------+ + | Zoe Stephen | PCP | | + +------+ + Encounter Details +--------+ + + + + | Date | Type | Department | Care Team | Description | +--------+ + + + + | 07/31/ | [facility] | [facility] | Paul Wheatley MD | RE: TSH Levels/5 | | 2016 | Encounter | [facility] | [address] | Weeks | | | | [facility] | [place], | | | | | Pavilion [address] | [place] [address] | | | | | [address] | [phone] | | | | | Physician's | | | | | | Pavilion | | | | | | [facility] | | | | | | [place], [place] | | | | | | [address] | | | | | | [phone] | | | +--------+ + + + [...] Diagnosis | + + | 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
--- OUTSIDE RECORDS SUMMARY | ~2019-08-22 | XMS | Encounter Summary ---
Demographics + + + | Address | [address] | | | [place] [address] | + + + | Home Phone | | + + + | Preferred Language | Unknown | + + + | Marital Status | | + + + | Church Affiliation | Unknown | + + + | Race | White | + + + | Ethnic Group | Not or | + + + Author + + + | Author | [facility] | + + + | Organization | [facility] | + + + | Address | Unknown | + + + | Phone | Unavailable | + + + Support + + +---------+ + | Name | Relationship | Address | Phone | + + +---------+ + | Brittnee Wells | ECON | Unknown | | + + +---------+ + Care Team Providers + +------+ + | Care Glass Deposition Tender Name | Role | Phone | + +------+ + | Zoe Stephen | PCP | | + +------+ + Encounter Details +--------+------+ + + + | Date | Type | Department | Care Team | Description | +--------+------+ + + + | 05/18/ | Lab | Laboratory at [facility] | | Encounter for | | 2015 | | [address] | | vitamin deficiency | | | | [place], [place] | | screening; Abnormal | | | | [address] | | thyroid blood test | | | | [phone] | | | +--------+------+ + + + [...] | + + + + + | [facility] | [address] | [place] [address] | | | SERVICES, CORE | [address] [...] [facility] | [address] | [place] [address] | | | SERVICES, CORE | [address] [...]
--- OUTSIDE RECORDS SUMMARY | ~2019-08-22 | XMS | Encounter Summary ---
Demographics + + + | Address | [address] | | | [place] [address] | + + + | Home Phone | | + + + | Preferred Language | Unknown | + + + | Marital Status | | + + + | Yarsanism Affiliation | Unknown | + + + | Race | White | + + + | Ethnic Group | Not or | + + + Author + + + | Author | [facility] | + + + | Organization | [facility] | + + + | Address | Unknown | + + + | Phone | Unavailable | + + + Support + + +---------+ + | Name | Relationship | Address | Phone | + + +---------+ + | Brittnee Wells | ECON | Unknown | | + + +---------+ + Care Team Providers + +------+ + | Care Youth Development Professional Name | Role | Phone | + +------+ + | Zoe Stephen | PCP | | + +------+ + Encounter Details +--------+ + + + + | Date | Type | Department | Care Team | Description | +--------+ + + + + | 05/02/ | [facility] | [facility] | Paul Wheatley MD | RE: Thyroid lab | | 2016 | Encounter | [facility] | [address] | level | | | | Center at [facility] | [place], | | | | | Pavilion [address] | [place] [address] | | | | | [address] | [phone] | | | | | Physician's | | | | | | Pavilion | | | | | | [facility] | | | | | | [place], [place] | | | | | | [address] | | | | | | [phone] | | | +--------+ + + + [...]
--- OUTSIDE RECORDS SUMMARY | ~2019-08-22 | XMS | Encounter Summary ---
Demographics + + + | Address | [address] | | | [place] [address] | + + + | Home Phone | | + + + | Preferred Language | Unknown | + + + | Marital Status | | + + + | Samaritan Affiliation | Unknown | + + + [...] Team Providers + +------+ + | Care Coil Strapper Name | Role | Phone | + +------+ + | Zoe Stephen | PCP | | + +------+ + Reason for Visit + + + | Reason | Comments | + + + | Treatment Question | | + + + Encounter Details +--------+ + + + + | Date | Type | Department | Care Team | Description | +--------+ + + + + | 07/19/ | Telephone | [place] | Koki Jha MD | Treatment Question | | 2016 | | Fertility | [address] | | | | | [facility] at [facility] | [place], [place] | | | | | [address] | [address] | | | | | Mailcode: CH10 | [phone] | | | | | [facility] | | | | | | and Healing, | | | | | | Building [address], | | | | | | Floor [place], [place] | | | | | | [address] | | | | | | [phone] | | | +--------+ + + + [...]
--- OUTSIDE RECORDS SUMMARY | ~2019-08-22 | XMS | Encounter Summary ---
Demographics + + + | Address | [address] | | | [place] [address] | + + + | Home Phone | | + + + | Preferred Language | Unknown | + + + | Marital Status | | + + + | Yazidi Affiliation | Unknown | + + + [...] Team Providers + +------+ + | Care Livestock Counter Name | Role | Phone | + +------+ + | Zoe Stephen | PCP | | + +------+ + Encounter Details +--------+------+ + + + | Date | Type | Department | Care Team | Description | +--------+------+ + + + | 05/26/ | Lab | Laboratory, | | Abnormal laboratory | | 2015 | | Specimen Collection | | test result | | | | at [facility] 3rd Floor | | | | | | [address] | | | | | | [place], | | | | | | [place] [address] | | | | | | [phone] | | | +--------+------+ + + + [...] | + +--------+ + + + | HEMOGLOBIN A1C, | Urgent | 05/26/2016 | Abnormal | Results for this | | BLOOD | | 10:32 AM | laboratory test | procedure are in the | | | | PDT | result | results section. | + +--------+ + + + documented in this encounter Results HEMOGLOBIN A1C, BLOOD (05/26/2016 10:32 AM PDT) + + + + + + | Component | Value | Ref Range | Performed | Pathologist | | | | | At | Signature | + + + + + + | HEMOGLOBIN | 5.9 (H)Comment: Hbg A1c | <5.7 % | [facility] | | | A1C | Interpretive | | LABORATORY | | | | Information: | | SERVICES, | | | | <5.7% - Normal | | SPECIAL IMM | | | | 5.7-6.4% - Consistent | | + COAG | | | | with pre-diabetes | | | | | | >6.4% - Consistent with | | | | | | diabetes | | | | + + + + + + + + | Specimen | + + | Blood - Blood | | (substance) | + + + + + + + | Performing | Address | City/State/Zipcode | Phone Number | | Organization | | | | + + + + + | [facility] | [address] | [place] [address] | | | SERVICES, SPECIAL | [address] | | | | IMM + COAG | | | | + + + + + documented in this encounter Visit Diagnoses + + | Diagnosis | + + | Abnormal laboratory test result Other abnormal clinical finding | + + documented in this encounter"
--- OUTSIDE RECORDS SUMMARY | ~2019-08-22 | XMS | Encounter Summary ---
Demographics + + + | Address | [address] | | | [place] [address] | + + + | Home Phone [...] + + + | Author | [facility] | + + + | Organization | [facility] | + + + | Address | Unknown | + + + | Phone | Unavailable | + + + Support + + +---------+ + | Name | Relationship | Address | Phone | + + +---------+ + | Brittnee Wells | ECON | Unknown | | + + +---------+ + Care Team Providers + +------+ + | Care Plasterer Maintenance Name | Role | Phone | + +------+ + | Zoe Stephen | PCP | | + +------+ + Reason for Visit + + + | Reason | Comments | + + + | Egg Retrieval | | + + + Other (Routine) [...] [address] | | | | | | [place], [place] | Mailcode: | | | | | | [address] | [facility] | | | | | | Phone: | for Health | | | | | | [phone] | and Healing, | | | | | | Fax: | Building 1, | | | | | | [phone] | 10th Floor | | | | | | | [place], [place] | | | | | | | [address] | | | | | | | Phone: | | | | | | | [phone] | | | | | | | Fax: | | | | | | | [phone] | +--------+--------+ + + + + Encounter Details +--------+ + + + + | Date | Type | Department | Care Team | Description | +--------+ + + + + | 07/11/ | Procedure | University | Koki Jha MD | Egg Retrieval | | 2016 | | Fertility | [address] | | | | | Consultants at [facility] | [place], [place] | | | | | [address] | [address] | | | | | Mailcode: CH10[facility] | [phone] | | | | | [facility] | | | | | | and [place], | [address] | | | | | Building | MD Fercho [address] [facility] | | | | | Floor [place], [place] | [facility] | | | | | [address] | [place], [place] | | | | | [phone] | [address] | | | | | | [phone] | | | | | | | | +--------+ + + + [...] + + + | Blood Pressure | 121/75 | 07/11/2016 7:12 AM | | | | | PDT | | + + + + + | Pulse | 98 | 07/11/2016 7:12 AM | | | | | PDT | | + + + + + | Temperature | 36.7 C (98 F) | 07/11/2016 7:12 AM | | | | | PDT | | + + + + + | Respiratory Rate | 16 | 07/11/2016 7:12 AM | | | | | PDT | | + + + + + | Oxygen Saturation | 98% | 07/11/2016 7:12 AM | | | | | PDT | | + + + + + | Inhaled Oxygen | - | - | | | Concentration | | | | + + + + + | Weight | 81.6 kg (179 lb 12.8 | 07/11/2016 7:12 AM | | | | oz) | PDT | | + + + + + | Height | 162.6 cm (5' 4") | 07/11/2016 7:12 AM | | | | | PDT | | + + + + + | Body Mass Index | 30.86 | 07/11/2016 7:12 AM | | | | | PDT | | + + + + + documented in this encounter Progress Notes Landry Gusman MA - 07/11/2016 2:15 PM PDTPt identified with date of , full name and type of procedure. Team pause with physician, embryologist, anesthesiologist and C.M.A. Egg Retrieval was performed on patient without complications. Written Post-retrieval, p4 and ET instructions were discussed and given to the patient. Escorted via wheelchair to car. Patien t was discharged alert and ambulatory. Released to /partner with no problems.Patient was discharged at 08:15AM. Koki Amato MD - 07/11/2016 8:07 AM PDT Pre-Operative History and Physical Pre-sedation Evaluation History: Are you having breathing problems today? Are you having chest pain or discomfort today? Have you had a prior history of difficult intubation or ventilation? Do you have noisy breathing (stridor)? no Do you snore? no Do you have documented sleep apnea? no Previous sedation/anesthesia experience and NPO status documented on nursing note, which I have reviewed. No past medical history on file. Allergies Allergen Reactions Contrast Medium Hives Doxycycline Hyclate Hives Current Medication List Name Sig FOLLITROPIN TIFFANIE 300 UNIT/0.5 ML SUBCUTANEOUS PEN INJECTOR Inject 100 iu in the evening as instructed; follow your written protocol. FOLLITROPIN TIFFANIE 900 UNIT/1.5 ML SUBCUTANEOUS PEN INJECTOR Inject 100 iu in the evening as instructed; follow your written protocol. INSULIN SYRINGE-NEEDLE U-100 1/2 ML 28 GAUGE X 1/2" Use as instructed to administer Lupron LEUPROLIDE 1 MG/0.2 ML SUBCUTANEOUS KIT Inject 20 Units under the skin (SUBC) once daily. I nject in the evening as instructed; follow your written protocol. LEVOXYL 200 MCG TABLET Take 1 tablet by mouth once daily. MENOTROPINS 75 UNIT SUBCUTANEOUS SOLUTION Inject 1 vial under the skin (SUBC) once daily. I nject in the morning as instructed; follow your written protocol. NEEDLE (DISP) 22 G 22 GAUGE X 1 1/2" Use to Inject Progesterone NEEDLE (DISP) 27 GAUGE X 1/2" Use to inject Menopur VITAMIN WITH CALCIUM NO.72-IRON 27 MG-FOLIC ACID 1 MG TABLET Take 1 tablet by mout h once daily. PROGESTERONE 50 MG/ML INTRAMUSCULAR OIL Inject 1 mL into the muscle (IM) once daily. Begin administering in the evening 2 days after your egg retrieval. SHARPS CONTAINER 1 PINT Use as directed. 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 Airway Examination normal airway Assessment: I have reviewed Ms. Aguilar's history and and conducted the physical examination as documente d above. This patient is appropriate for moderate sedation for egg retrieval. Ms. Aguilar has provided written consent for sedation with this procedure. ASA Status: 1. Plan: Proceed with moderate sedation Surgical Plan egg retrieval PARQ Reviewed, consent on chart. EGG RETRIEVAL Needle Used: Double Length of Procedure: 30 min Number of Oocytes: 5. Multiple flushes. Only larger follicles yielded eggs. Pain Experienced (1-10): 2 Antibiotics Given: Yes Approach: transvaginal ultrasound EBL: 0 Complications: None Bilateral iliacs intact after procedure: No Free Fluid Amount: None Patient identity was confirmed. Risks of procedure were explained to patient. Consent forme d was signed. Patient was placed in the lithotomy position. A team pause was performed. Usi ng ultrasound guidance the ovary was visualized the needle was inserted into the ovary aspir ation of fluid and eggs were completed. Instruments were then removed, and patient remained resting on table for 30 minutes; No vaginal bleeding was noted. Patient tolerated procedure well, no complications. Routine post procedure instructions given. documented in this encou nter Plan of Treatment Not on filedocumented as of this encounter Procedures + +--------+ + + + | Procedure Name | Priori | Date/Time | Associated Diagnosis | Comments | | | ty | | | | + +--------+ + + + | AZ FOLLICLE | Routin | 07/11/2016 | Encounter for | | | PUNC,RETRIEVAL OF | e | 8:09 AM | assisted | | | OOCYTE | | PDT | reproductive | | | | | | fertility procedure | | | | | | cycle | | + +--------+ + + + | ANESTHESIA/SEDATION | | 07/11/2016 | | Results for this | | | | 12:00 AM | | procedure are in the | | | | PDT | | results section. | + +--------+ + + + documented in this encounter Results ANESTHESIA/SEDATION (07/11/2016 12:00 AM PDT) + + + | Narrative | Performed At | + + + | | | + + + documented in this encounter Visit Diagnoses + + | Diagnosis | + + | Encounter for assisted reproductive fertility procedure cycle - Primary | + + documented in this encounter
--- OUTSIDE RECORDS SUMMARY | ~2019-08-22 | XMS | Encounter Summary ---
Demographics + + + | Address | [address] | | | [place] [address] | + + + | Home Phone | | + + + | Preferred Language | Unknown | + + + | Marital Status | | + + + | Sabianism Affiliation | Unknown | + + + | Race | White | + + + | Ethnic Group | Not or | + + + Author + + + | Author | [facility] | + + + | Organization | [facility] | + + + | Address | Unknown | + + + | Phone | Unavailable | + + + Support + + +---------+ + | Name | Relationship | Address | Phone | + + +---------+ + | Brittnee Wells | ECON | Unknown | | + + +---------+ + Care Team Providers + +------+ + | Care Cut Lace Machine Operator Name | Role | Phone | + +------+ + | Zoe Stephen | PCP | | + +------+ + Reason for Visit + + + | Reason | Comments | + + + | Care Coordination | | + + + Other (Routine) +--------+--------+ + + + + | Status | Reason | Specialty | Diagnoses / | Referred By | Referred To | | | | | Procedures | Contact | Contact | +--------+--------+ + + + + | Closed | | Reproductive | | Abhijeet, | Roya Endo | | | | Endocrinology | | MD Koki | Faculty Ch | | | | /Infertility | | [address] | [address] | | | | | | Ave | Ave | | | | | | [place], [place] | Mailcode: | | | | | | [address] | [address] | | | | | | Phone: | for Health | | | | | | [phone] | and Healing, | | | | | | Fax: | Building 1, | | | | | | [phone] | 10th Floor | | | | | | | [place], [place] | | | | | | | [address] | | | | | | | Phone: | | | | | | | [phone] | | | | | | | Fax: | | | | | | | [phone] | +--------+--------+ + + + + Encounter Details +--------+---------+ + + + | Date | Type | Department | Care Team | Description | +--------+---------+ + + + | 06/28/ | Office | University | | Encounter for | | 2015 | Visit | Fertility | | assisted | | | | Consultants at [facility] | | reproductive | | | | [address] | | fertility procedure | | | | Mailcode: 10F | | cycle (Primary Dx) | | | | [place] [facility] | | | | | | and Healing, | | | | | | Building , 10th | | | | | | Floor [place], [place] | | | | | | [address] | | | | | | [phone] | | | +--------+---------+ + + + Social History + + [...] + + documented as of this encounter Amber Rodas RN - 06/28/2016 9:57 AM PDTPt came in for IVF consent signing in addition to her suppression check appointment. RN verified her [employer]'s License and witnessed all signatures. Consent given to patient to have partner sign with a notary; she stated she plans to bring it back on Sunday07/02/16 Pt denied questions about protocol. RN advised would f/u with results from her suppression check this afternoon. She verbalized understanding, agreed with the plan of care, denied further questions or con cerns and stated will f/u PRN. 9: 58 AM PDTdocumented in this encounter Plan of Treatment Not on filedocumented as of this encounter Visit Diagnoses + + | Diagnosis | + + | Encounter for assisted reproductive fertility procedure cycle - Primary | + + documented in this encounter"
--- OUTSIDE RECORDS SUMMARY | ~2019-08-22 | XMS | Encounter Summary ---
Demographics + + + | Address | [address] | | | [place] [address] | + + + | Home Phone | | + + + | Preferred Language | Unknown | + + + | Marital Status | | + + + | Mu-Ism Affiliation | Unknown | + + + | Race | White | + + + | Ethnic Group | Not or | + + + Author + + + | Author | [facility] | + + + | Organization | [facility] | + + + | Address | Unknown | + + + | Phone | Unavailable | + + + Support + + +---------+ + | Name | Relationship | Address | Phone | + + +---------+ + | Brittnee Wells | ECON | Unknown | | + + +---------+ + Care Team Providers + +------+ + | Care Tax Manager Name | Role | Phone | [...] + + | 07/19/ | Telephone | [place] | Koki Jha MD | Treatment Question | | 2016 | | Fertility | [address] | | | | | Consultants at [facility] | [place], [place] | | | | | [address] | [address] | | | | | Mailcode: CH10 | [phone] | | | | | [facility] | | | | | | and Healing, | | | | | | Building 1, | | | | | | Floor [place], [place] | | | | | | [address] | | | | | | [phone] | | | +--------+ + + + [...]
--- OUTSIDE RECORDS SUMMARY | ~2019-08-22 | XMS | Encounter Summary ---
Demographics + + + | Address | [address] | | | [place] [address] | + + + | Home Phone | | + + + | Preferred Language | Unknown | + + + | Marital Status | | + + + | Voodoo Affiliation | Unknown | + + + [...] Team Providers + +------+ + | Care Environmental Studies Professor Name | Role | Phone | + +------+ + | Zoe Stephen | PCP | | + +------+ + Reason for Visit + + + | Reason | Comments | + + + | Infertility Care | | + + + Other (Routine) [...] Ave | | | | | | [place], [place] | Mailcode: | | | | | | [address] | [address] | | | | | | Phone: | for Health | | | | | | [phone] | and Healing, | | | | | | Fax: | Building 1, | | | | | | [phone] | 10th Floor | | | | | | | [place], [place] | | | | | | | [address] | | | | | | | Phone: | | | | | | | [phone] | | | | | | | Fax: | | | | | | | [phone] | +--------+--------+ + + + + Encounter Details +--------+ + + + + | Date | Type | Department | Care Team | Description | +--------+ + + + + | 07/16/ | Telephone-S | [place] | Koki Jha MD | Infertility Care | | 2015 | cheduled | Fertility | [address] | | | | | Consultants at [facility] | [place], [place] | | | | | [address] | [address] | | | | | Mailcode: CH10F | [phone] | | | | | [facility] | | | | | | and [place], | | | | | | Building | | | | | | Floor [place], [place] | | | | | | [address] | | | | | | [phone] | | | +--------+ + + + [...]
--- OUTSIDE RECORDS SUMMARY | ~2019-08-22 | XMS | Encounter Summary ---
Demographics + + + | Address | [address] | | | [place] [address] | + + + | Home Phone | | + + + | Preferred Language | Unknown | + + + | Marital Status | | + + + | Orthodox Affiliation | Unknown | + + + [...] Team Providers + +------+ + | Care Principal Librarian Name | Role | Phone | + +------+ + | Zoe Stephen | PCP | | + +------+ + Encounter Details +--------+ + + + + | Date | Type | Department | Care Team | Description | +--------+ + + + + | 11/30/ | [place] | [facility]antoja | Paul Wheatley MD | RE:labs | | 2016 | Encounter | [facility] | [address] | | | | | [facility] | [place], | | | | | Pavilion [address] | [place] [address] | | | | | [address] | [phone] | | | | | Physician's | | | | | | Pavilion | | | | | | [facility] | | | | | | [place], [place] | | | | | | [address] | | | | | | [phone] | | | +--------+ + + + [...]
--- OUTSIDE RECORDS SUMMARY | ~2019-08-22 | XMS | Encounter Summary ---
Demographics + + + | Address | [address] | | | [place] [address] | + + + | Home Phone | | + + + | Preferred Language | Unknown | + + + | Marital Status | | + + + | Buddhist Affiliation | Unknown | + + + [...] Team Providers + +------+ + | Care Needle Grader Name | Role | Phone | + +------+ + | Zoe Stephen | PCP | | + +------+ + Encounter Details +--------+ + + + + | Date | Type | Department | Care Team | Description | +--------+ + + + + | 03/14/ | [place] | [place] | Koki Jha MD | RE: High WBC labs | | 2016 | Encounter | Fertility | [address] | and questionalbe [facility] | | | | Consultants at [facility] | [place], [place] | in urine | | | | [address] | [address] | | | | | Mailcode: CH10F | [phone] | | | | | [place] for [facility] | | | | | | and Healing, | | | | | | | | | | | | Floor [place], [place] | | | | | | [address] | | | | | | [phone] | | | +--------+ + + + [...]
--- OUTSIDE RECORDS SUMMARY | ~2019-08-22 | XMS | Encounter Summary ---
Demographics + + + | Address | [address] | | | [place] [address] | + + + | Home Phone | | + + + | Preferred Language | Unknown | + + + | Marital Status | | + + + | Taoism Affiliation | Unknown | + + + | Race | White | + + + | Ethnic Group | Not or | + + + Author + + + | Author | [facility] | + + + | Organization | [facility] | + + + | Address | Unknown | + + + | Phone | Unavailable | + + + Support + + +---------+ + | Name | Relationship | Address | Phone | + + +---------+ + | Brittnee Wells | ECON | Unknown | | + + +---------+ + Care Team Providers + +------+ + | Care Asphalt Distributor Tender Name | Role | Phone | + +------+ + | Zoe Stephen | PCP | | + +------+ + Encounter Details +--------+------+ + + + | Date | Type | Department | Care Team | Description | +--------+------+ + + + | 06/20/ | Lab | Laboratory, | | Gabriel's disease; | | 2015 | | Specimen Collection | | Encounter for | | | | at [facility] 3rd Floor | | vitamin deficiency | | | | [address] | | screening | | | | [place], | | | | | | [place] [address] | | | | | | [phone] | | | +--------+------+ + + + [...] + | VITAMIN D, | Routin | 06/20/2016 | Encounter for | Results for this | | 25-HYDROXY, SERUM | e | 11:26 AM | vitamin deficiency | procedure are in the | | | | PDT | screening | results section. | + +--------+ + + + | TSH | Routin | 06/20/2016 | Gabriel's | Results for this | | | e | 11:26 AM | disease | procedure are in the | | | | PDT | | results section. | + +--------+ + + + documented in this encounter Results VITAMIN D, 25-HYDROXY, SERUM (06/20/2016 11:26 AM PDT) + +-------+ + + + | Component | Value | Ref Range | Performed | Pathologist | | | | | At | Signature | + +-------+ + + + | VITAMIN D | 47.7 | 30 - 80 ng/mL | [facility] [...] LABORATORY | | >18years: Deficiency: <20 | GABE, CORE | | ng/mL Insufficiency: 20-29 ng/mL | | | Optimum Level: 30-80 ng/mL High: | | | 81-150 ng/ml Toxic: >150 ng/mL | | + + + + + + + + | Performing | Address | City/State/Zipcode | Phone Number | | Organization | | | | + + + + + | [facility] | [address] | [place] [address] | | | GABE, MERLIN | [address] | | | + + + + + TSH (06/20/2016 11:26 AM PDT) + + + + + + | Component | Value | Ref Range | Performed | Pathologist | | | | | At | Signature | + + + + + + | TSH | 4.51 (H) | 0.40 - 3.98 | [facility] [...] utilizing a similar TSH assay, and | GABE, CORE | | should be interpreted with caution. | | + + + + + + + + | Performing | Address | City/State/Zipcode | Phone Number | | Organization | | | | + + + + + | [facility] | [address] | [place] [address] | | | MERLIN BERNAL | [address] | | | + + + + + documented in this encounter Visit Diagnoses + + | Diagnosis | + + | Gabriel's disease Chronic lymphocytic thyroiditis | + + | Encounter for vitamin deficiency screening Screening for other and unspecified | | endocrine, nutritional, metabolic, and immunity disorders | + + documented in this encounter"
--- OUTSIDE RECORDS SUMMARY | ~2019-08-22 | XMS | Encounter Summary ---
Demographics + + + | Address | [address] | | | [place] [address] | + + + | Home Phone | | + + + | Preferred Language | Unknown | + + + | Marital Status | | + + + | Pentecostal Affiliation | Unknown | + + + [...] Team Providers + +------+ + | Care Supervisor Tellers Name | Role | Phone | + +------+ + | Zoe Stephen | PCP | | + +------+ + Encounter Details +--------+ + + + + | Date | Type | Department | Care Team | Description | +--------+ + + + + | 07/12/ | Documentati | [place] | Koki Jha MD | | | 2016 | on | Fertility | [address] | | | | | Consultants at [facility] | [place], [place] | | | | | [address] | [address] | | | | | Mailcode: [facility] | [phone] | | | | | [facility] | | | | | | and Healing, | | | | | | | | | | | | Floor [facility] [place] | | | | | | [address] | | | | | | [phone] | | | +--------+ + + + [...]
--- OUTSIDE RECORDS SUMMARY | ~2019-08-22 | XMS | Encounter Summary ---
Demographics + + + | Address | [address] | | | [place] [address] | + + + | Home Phone | | + + + | Preferred Language | Unknown | + + + | Marital Status | | + + + | Roman Catholic Affiliation | Unknown | + + + | Race | White | + + + | Ethnic Group | Not or | + + + Author + + + | Author | [facility] | + + + | Organization | [facility] | + + + | Address | Unknown | + + + | Phone | Unavailable | + + + Support + + +---------+ + | Name | Relationship | Address | Phone | + + +---------+ + | Brittnee Wells | ECON | Unknown | | + + +---------+ + Care Team Providers + +------+ + | Care Bearing Machine Operator Name | Role | Phone [...] + + + + | 06/07/ | Telephone | University | Koki Jha MD | Prior Authorization | | 2016 | | Fertility | [address] | Request | | | | Consultants at [facility] | [place], [place] | | | | | [address] | [address] | | | | | Mailcode: [facility] | [phone] | | | | | [facility] | | | | | | and Healing, | | | | | | Building | | | | | | Floor [place], [place] | | | | | | [address] | | | | | | [phone] | | | +--------+ + + + [...]
--- OUTSIDE RECORDS SUMMARY | ~2019-08-22 | XMS | Encounter Summary ---
Demographics + + + | Address | [address] | | | [place] [address] | + + + | Home Phone | | + + + | Preferred Language | Unknown | + + + | Marital Status | | + + + | Nondenominational Affiliation | Unknown | + + + [...] Team Providers + +------+ + | Care Internet Marketing Manager Name | Role | Phone | + +------+ + | Zoe Stephen | PCP | | + +------+ + Encounter Details +--------+ + + + + | Date | Type | Department | Care Team | Description | +--------+ + + + + | 08/28/ | Pharmacy | [facility] | | | | 2015 | Visit | & [facility] | | | | | | [address] | | | | | | Mailcode: [place] | | | | | | [facility] and | | | | | | Healing, Building [address] | | | | | | [place], [place] | | | | | | [address] | | | | | | [phone] | | | +--------+ + + + [...]
--- OUTSIDE RECORDS SUMMARY | ~2019-08-22 | XMS | Encounter Summary ---
Demographics + + + | Address | [address] | | | [place] [address] | + + + | Home Phone | | + + + | Preferred Language | Unknown | + + + | Marital Status | | + + + | Baptist Affiliation | Unknown | + + + | Race | White | + + + | Ethnic Group | Not or | + + + Author + + + | Author | [facility] | + + + | Organization | [facility] | + + + | Address | Unknown | + + + | Phone | Unavailable | + + + Support + + +---------+ + | Name | Relationship | Address | Phone | + + +---------+ + | Brittnee Wells | ECON | Unknown | | + + +---------+ + Care Team Providers + +------+ + | Care Pumper Brewery Name | Role | Phone | + +------+ + | Zoe Stephen | PCP | | + +------+ + Encounter Details +--------+ + + + + | Date | Type | Department | Care Team | Description | +--------+ + + + + | 05/03/ | [place] | [facility] | Paul Wheatley MD | thyroid | | 2016 | Encounter | [facility] | [address] | | | | | Center Physicians | Avani Zhang [place], | | | | | Pavilion [address] | [place] [address] | | | | | [address] | [phone] | | | | | Physician's | | | | | | Pavilion | | | | | | Physician's Pavilion | | | | | | [place], [place] | | | | | | [address] | | | | | | [phone] | | | +--------+ + + + [...]
--- OUTSIDE RECORDS SUMMARY | ~2019-08-22 | XMS | Encounter Summary ---
Demographics + + + | Address | [address] | | | [place] [address] | + + + | Home Phone [...] Team Providers + +------+ + | Care Wax Molder Name | Role | Phone | + [...] | +--------+ + + + + | 12/17/ | Telephone | [place] | Koki Jha MD | Financial Review | | 2016 | | Fertility | [address] | | | | | Consultants at [facility] | [place], [place] | | | | | [address] | [address] | | | | | Mailcode: CH10 | [phone] | | | | | [facility] | | | | | | and [place], | | | | | | Building | | | | | | Floor [facility] [place] | | | | | | [address] | | | | | | [phone] | | | +--------+ + + + [...]
--- OUTSIDE RECORDS SUMMARY | ~2019-08-22 | XMS | Encounter Summary ---
Demographics + + + | Address | [address] | | | [place] [address] | + + + | Home Phone | | + + + | Preferred Language | Unknown | + + + | Marital Status | | + + + | Gnosticist Affiliation | Unknown | + + + [...] Team Providers + +------+ + | Care Process Mold Technician Name | Role | Phone | + +------+ + | Zoe Stephen | PCP | | + +------+ + Encounter Details +--------+ + + + + | Date | Type | Department | Care Team | Description | +--------+ + + + + | 03/15/ | Documentati | [facility] | Paul Wheatley MD | | | 2016 | on | [facility] | [address] | | | | | [facility] | Avani Zhang [place], | | | | | Pavilion [address] | [place] [address] | | | | | [address] | [phone] | | | | | Physician's | | | | | | Pavilion | | | | | | Physician's Pavilion | | | | | | [place], [place] | | | | | | [address] | | | | | | [phone] | | | +--------+ + + + [...]
--- OUTSIDE RECORDS SUMMARY | ~2019-08-22 | XMS | Encounter Summary ---
Demographics + + + | Address | [address] | | | [place] [address] | + + + | Home Phone | | + + + | Preferred Language | Unknown | + + + | Marital Status | | + + + | Bahai Affiliation | Unknown | + + + | Race | White | + + + | Ethnic Group | Not or | + + + Author + + + | Author | [facility] | + + + | Organization | [facility] | + + + | Address | Unknown | + + + | Phone | Unavailable | + + + Support + + +---------+ + | Name | Relationship | Address | Phone | + + +---------+ + | Brittnee Wells | ECON | Unknown | | + + +---------+ + Care Team Providers + +------+ + | Care Manager Plant Name | Role | Phone | + +------+ + | Zoe Stephen | PCP | | + +------+ + Encounter Details +--------+ + + + + | Date | Type | Department | Care Team | Description | +--------+ + + + + | 07/05/ | [place] | [place] | Koki Jha MD | RE: Dmitry and | | 2016 | Encounter | Fertility | [address] | thyroid levels | | | | Consultants at [facility] | [facility] [place] | | | | | [address] | [address] | | | | | Mailcode: [facility] | [phone] | | | | | [facility] | | | | | | and Healing, | | | | | | | | | | | | Floor [facility] [place] | | | | | | [address] | | | | | | [phone] | | | +--------+ + + + [...]
--- OUTSIDE RECORDS SUMMARY | ~2019-08-22 | XMS | Encounter Summary ---
Demographics + + + | Address | [address] | | | [place] [address] | + + + | Home Phone | | + + + | Preferred Language | Unknown | + + + | Marital Status | | + + + | Religion Affiliation | Unknown | + + + [...] Team Providers + +------+ + | Care Egg Gatherer Name | Role | Phone | + +------+ + | Zoe Stephen | PCP | | + +------+ + Reason for Visit + + + | Reason | Comments | + + + | Lab findings, | | | teaching, guidance, | | | and counseling | | + + + Other (Routine) [...] [address] | | | | | | [place], [place] | Mailcode: | | | | | | [address] | CH10[facility] [place] | | | | | | Phone: | for Health | | | | | | [phone] | and Healing, | | | | | | Fax: | Building 1, | | | | | | [phone] | 10th Floor | | | | | | | [place], [place] | | | | | | | [address] | | | | | | | Phone: | | | | | | | [phone] | | | | | | | Fax: | | | | | | | [phone] | +--------+--------+ + + + + Encounter Details +--------+ + + + + | Date | Type | Department | Care Team | Description | +--------+ + + + + | 07/31/ | Telephone-S | [place] | Draw, [facility] | Lab findings, | | 2016 | cheduled | Fertility | [address] | teaching, guidance, | | | | Consultants at [facility] | [place] [address] | and counseling | | | | [address] | | | | | | Mailcode: CH10F | | | | | | [facility] | | | | | | and Healing, | | | | | | Building 1, | | | | | | Floor [place], [place] | | | | | | [address] | | | | | | [phone] | | | +--------+ + + + [...] + + | LAB REPORTS | | 07/31/2016 | | Results for this | | | | 12:00 AM | | procedure are in the | | | | PDT | | results section. | + +--------+ + + + | HCG BETA QUANT, | Routin | 07/31/2016 | | Results for this | | PLASMA | e | | | procedure are in the | | | | | | results section. | + +--------+ + + + | TSH | Routin | 07/27/2016 | | Results for this | | | e | | | procedure are in the | | | | | | results section. | + +--------+ + + + | HCG BETA QUANT, | Routin | 07/27/2016 | | Results for this | | PLASMA | e | | | procedure are in the | | | | | | results section. | + +--------+ + + + documented in this encounter Results LAB REPORTS (07/31/2016 12:00 AM PDT) + + + | Narrative | Performed At | + + + | | | + + + HCG BETA, PLASMA (07/31/2016) + +-------+ + + + | Component | Value | Ref Range | Performed | Pathologist | | | | | At | Signature | + +-------+ + + + | HCG BETA, | 2,736 | mIU/mL | NON [facility] | | | PLASMA | | | LAB | | + +-------+ + + + + + | Specimen | + + | Blood - Blood | + + + +---------+ + + | Performing | Address | City/State/Zipcode | Phone Number | | Organization | | | | + +---------+ + + | NON [facility] | | | | + +---------+ + + TSH (07/27/2016) + +-------+ + + + | Component | Value | Ref Range | Performed | Pathologist | | | | | At | Signature | + +-------+ + + + | TSH | 0.089 | uIU/ml | NON [facility] | | | | | | LAB | | + +-------+ + + + + + | Specimen | + + | Blood - Blood | + + + +---------+ + + | Performing | Address | City/State/Zipcode | Phone Number | | Organization | | | | + +---------+ + + | NON [facility] | | | | + +---------+ + + HCG BETA, PLASMA (07/27/2016) + +-------+ + + + | Component | Value | Ref Range | Performed | Pathologist | | | | | At | Signature | + +-------+ + + + | HCG BETA, | 721.2 | mIU/mL | NON [facility] | | | PLASMA | | | LAB | | + +-------+ + + + + + | Specimen | + + | Blood - Blood | + + + +---------+ + + | Performing | Address | City/State/Zipcode | Phone Number | | Organization | | | | + +---------+ + + | NON [facility] | | | | + +---------+ + + documented in this encounter Visit Diagnoses + + | Diagnosis | + + | resulting from assisted reproductive technology in first trimester - Primary | + + documented in this encounter"
--- OUTSIDE RECORDS SUMMARY | ~2019-08-22 | XMS | Encounter Summary ---
Demographics + + + | Address | [address] | | | [place] [address] | + + + | Home Phone | | + + + | Preferred Language | Unknown | + + + | Marital Status | | + + + | Nondenominational Affiliation | Unknown | + + + | Race | White | + + + | Ethnic Group | Not or | + + + Author + + + | Author | [facility] | + + + | Organization | [facility] | + + + | Address | Unknown | + + + | Phone | Unavailable | + + + Support + + +---------+ + | Name | Relationship | Address | Phone | + + +---------+ + | Brittnee Wells | ECON | Unknown | | + + +---------+ + Care Team Providers + +------+ + | Care Preparation Department Supervisor Name | Role | Phone | + +------+ + | Zoe Stephen | PCP | | + +------+ + Encounter Details +--------+ + + + + | Date | Type | Department | Care Team | Description | +--------+ + + + + | 03/14/ | [place] | [place] | Koki Jha MD | RE: High WBC labs | | 2016 | Encounter | Fertility | [address] | and questionalbe HCB | | | | Consultants at [facility] | [place], [place] | in urine | | | | [address] | [address] | | | | | Mailcode: CH10F | [phone] | | | | | [place] for [facility] | | | | | | and Healing, | | | | | | | | | | | | Floor [place], [place] | | | | | | [address] | | | | | | [phone] | | | +--------+ + + + [...]
--- OUTSIDE RECORDS SUMMARY | ~2019-08-22 | XMS | Encounter Summary ---
Demographics + + + | Address | [address] | | | [place] [address] | + + + | Home Phone | | + + + | Preferred Language | Unknown | + + + | Marital Status | | + + + | Spiritism Affiliation | Unknown | + + + | Race | White | + + + | Ethnic Group | Not or | + + + Author + + + | Author | [facility] | + + + | Organization | [facility] | + + + | Address | Unknown | + + + | Phone | Unavailable | + + + Support + + +---------+ + | Name | Relationship | Address | Phone | + + +---------+ + | Brittnee Wells | ECON | Unknown | | + + +---------+ + Care Team Providers + +------+ + | Care Retail Reset Merchandiser Name | Role | Phone | + +------+ + | No Pcp Per Patient | PCP | Unavailable | + +------+ + Reason for Visit [...] [address] | | | | | | [facility] [place] | Mailcode: | | | | | | [address] | [facility] | | | | | | Phone: | for Health | | | | | | [phone] | and Healing, | | | | | | Fax: | Building 1, | | | | | | [phone] | 10th Floor | | | | | | | [place], [place] | | | | | | | [address] | | | | | | | Phone: | | | | | | | [phone] | | | | | | | Fax: | | | | | | | [phone] | +--------+--------+ + + + + Encounter Details +--------+---------+ + + + | Date | Type | Department | Care Team | Description | +--------+---------+ + + + | 11/16/ | Office | University | Koki Jha MD | Irregular menstrual | | 2016 | Visit | Fertility | [address] | cycle (Primary Dx); | | | | Consultants at [facility] | [place], [place] | Hypothyroidism, | | | | [address] | [address] | unspecified | | | | Mailcode: [facility] | [phone] | hypothyroidism type; | | | | [facility] | | Encounter for | | | | and Healing, | | preconception | | | | Building | | consultation | | | | Floor [facility] [place] | | | | | | [address] | | | | | | [phone] | | | +--------+---------+ + + + Social History + +-------+ +--------+------+ | Tobacco Use | Types | Packs/Day | Years | Date | | | | | Used | | + +-------+ +--------+------+ | Never Assessed | | | | | + +-------+ +--------+------+ + + + | Sex Assigned at [...] + + + | Blood Pressure | 153/82 | 11/16/2015 1:10 PM | | | | | PST | | + + + + + | Pulse | 119 | 11/16/2015 1:10 PM | | | | | PST | | + + + + + | Temperature | - | - | | + + + + + | Respiratory Rate | - | - | | + + + + + | Oxygen Saturation | - | - | | + + + + + | Inhaled Oxygen | - | - | | | Concentration | | | | + + + + + | Weight | 70.8 kg (156 lb) | 11/16/2015 1:10 PM | | | | | PST | | + + + + + | Height | 162.6 cm (5' 4") | 11/16/2015 1:10 PM | | | | | PST | | + + + + + | Body Mass Index | 26.78 | 11/16/2015 1:10 PM | | | | | PST | | + + + + + documented in this encounter Progress Notes Koki Jha MD - 11/16/2015 2:41 PM PST30 yo [id number]? (diff partner) female w/ inf x 3 yrs Cycles reg; mild dysm; no hx of PID dx'd w/ PCOS? 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 Infertility 2. PCOS? 3. Hypothyroidism 4. RPL? 5. Failed Clomid/TIC P// hormone profile, labs today Implications of PCOS reviewed HSG rx doxy SA Then, RTC Genetic testing offered - declined Encouraged to d/c smoking Options briefly discussed Probably Rx LE 5 mg/IUI x 3 cycles OPKs [facility] CD#12ish Success rates, risks, costs discussed I spent 45 minutes with the patient, over half of which was spent in counseling the patient regarding inf. documented in this encou nter Plan of Treatment Not on filedocumented as of this encounter Results ANTI-MULLERIAN HORMONE (11/16/2015 2:39 PM PST) + +-------+ + + + | Component | Value | Ref Range | Performed | Pathologist | | | | | At | Signature | + +-------+ + + + | ANTI-JONES | 3.03 | 0.70 - 3.50 | [facility] | | | BLANCO HORMONE | | ng/mL | REFERENCE | | | | | | LAB | | + +-------+ + + + + + | Specimen | + + | Blood - Blood | + + + + + | Narrative | Performed At | + + + | | [facility] | | Test performed by: | REFERENCE LAB | | [facility] | | | [address] | | | [place] [address] | | + + + + + + + + | Performing | Address | City/State/Zipcode | Phone Number | | Organization | | | | + + + + + | [facility] | | | | + + + + + | [facility] | see below | | | + + + + + ABO & RH TYPE (11/16/2015 2:39 PM PST) + + + + + + | Component | Value | Ref Range | Performed | Pathologist | | | | | At | Signature | + + + + + + | ABO Group | O | | [facility] | | | | | | LABORATORY | | | | | | SERVICES, | | | | | | TRANSFUSION | | | | | | MEDICINE | | + + + + + + | Rh Type | Positive | | [facility] | | | | | | LABORATORY | | | | | | SERVICES, | | | | | | TRANSFUSION | | | | | | MEDICINE | | + + + + + + + + | Specimen | + + | Blood - Blood | + + + + + + + | Performing | Address | City/State/Zipcode | Phone Number | | Organization | | | | + + + + + | [facility] | [address] | [place] [address] | | | SERVICES, | [address] | | | | TRANSFUSION MEDICINE | | | | + + + + + RUBELLA IGG AB, SERUM (11/16/2015 2:39 PM PST) + +--------+ + + + | Component | Value | Ref Range | Performed | Pathologist | | | | | At | Signature | + +--------+ + + + | RUBELLA IGG | 71 | >=15 IU/mL | [facility] - | | | AB | | | AIRPORT - | | | | | | [place] | | + +--------+ + + + | RUBELLA IGG | Immune | | [facility] - | | | | | | AIRPORT - | | | INTERPRETAT | | | [place] | | | ION | | | | | + +--------+ + + + + + | Specimen | + + | Blood - Blood | + + + + + + + | Performing | Address | City/State/Zipcode | Phone Number | | Organization | | | | + + + + + | [facility] - | [address] | [place] [address] | | | [place] | | | | + + + + + HEMOGLOBIN A1C, BLOOD (11/16/2015 2:39 PM PST) + + + + + + | Component | Value | Ref Range | Performed | Pathologist | | | | | At | Signature | + + + + + + | HEMOGLOBIN | 6.0 (H)Comment: Hbg A1c | <5.7 % | [...] | + + + + + | [facility] | [address] | [place] [address] | | | SERVICES, SPECIAL | [address] | | | | IMM + COAG | | | | + + + + + TESTOSTERONE, FEMALE/CHILD:FREE, TOTAL, SHB (11/16/2015 2:39 PM PST) + + + + + + | Component | Value | Ref Range | Performed | Pathologist | | | | | At | Signature | + + + + + + | SEX HORMONE | 51Comment: REFERENCE | 30 - 135 nmol/L | [facility] | | | BIND | INTERVAL: Sex Hormone | | REG UNIV | | | GLOBULIN | Binding Globulin Access | | PTH - INTFC | | | | complete set of age- | | | | | | and/or gender-specific | | | | | | reference intervals for | | | | | | this test in the [facility] | | | | | | Laboratory Test | | | | | | Directory ([facility]). | | | | + + + + + + | TESTOST, | 39Comment: Total | 9 - 55 ng/dL | [facility] | | | TOTAL: | Testosterone, Females 18 | | REG UNIV | | | FEMALE/CHIL | years and older | | PTH - INTFC | | | D | Premenopausal 9-55 | | | | | | ng/dL Postmenopausal | | | | | | 5-32 ng/dLREFERENCE | | | | | | INTERVAL: Testosterone, | | | | | | LC-MS/MS Access complete | | | | | | set of age- and/or | | | | | | gender-specific | | | | | | reference intervals for | | | | | | this test in the [facility] | | | | | | Laboratory Test | | | | | | Directory ([facility]). | | | | | | Test developed and | | | | | | characteristics | | | | | | determined by [facility] | | | | | | Laboratories. See | | | | | | Compliance Statement B: | | | | | | [facility]/CS | | | | + + + + + + | TESTOST, | 5.0Comment: To convert | 0.8 - 7.4 pg/mL | [facility] | | | FREE: | to pmol/L, multiply | | REG UNIV | | | FEMALE/CHIL | pg/mL by 3.47 The | | PTH - INTFC | | | D | concentration of Free | | | | | | Testosterone is derived | | | | | | from a mathematical | | | | | | expression based on the | | | | | | constant for the binding | | | | | | of testosterone to sex | | | | | | hormone binding | | | | | | globulin. Testosterone, | | | | | | Free LC-MS/MS Reference | | | | | | Interval for Females 18 | | | | | | years and older | | | | | | Postmenopausal: 0.6 - | | | | | | 3.8 pg/mLREFERENCE | | | | | | INTERVAL: Testosterone, | | | | | | Free LC-MS/MS Access | | | | | | complete set of age- | | | | | | and/or gender-specific | | | | | | reference intervals for | | | | | | this test in the [facility] | | | | | | Laboratory Test | | | | | | Directory ([facility]). | | | | | | Test developed and | | | | | | characteristics | | | | | | determined by [facility] | | | | | | Laboratories. See | | | | | | Compliance Statement B: | | | | | | [facility]/CSPerformed | | | | | | by [employer],[address] | | | | | [address], [facility],[place] | | | | | | [address] | | | | | [phone] | | | | | | maik, Devante Barton, | | | | | | Lab. ADINA Director | | | | + + + + + + + + | Specimen | + + | Blood - Blood | + + + + + + + | Performing | Address | City/State/Zipcode | Phone Number | | Organization | | | | + + + + + | [facility] | [address] | [place], [place] | | | UNIV PTH - INTFC | | [address] | | + + + + + DHEA-SULFATE, SERUM (11/16/2015 2:39 PM PST) + +-------+ + + + | Component | Value | Ref Range | Performed | Pathologist | | | | | At | Signature | + +-------+ + + + | DHEA-SULFAT | 124 | 18 - 391 mcg/dL | [facility] - | | | E | | | AIRPORT - | | | | | | [place] | | + +-------+ + + + + + | Specimen | + + | Blood - Blood | + + + + + + + | Performing | Address | City/State/Zipcode | Phone Number | | Organization | | | | + + + + + | [facility] - | [address] | [place] [address] | | | [place] | | | | + + + + + PROGESTERONE, SERUM (11/16/2015 2:39 PM PST) + + + + + + | Component | Value | Ref Range | Performed | Pathologist | | | | | At | Signature | + + + + + + | PROGESTERON | 8.9Comment: | ng/mL | [facility] - | | | E (LAB) | PROGESTERONE FEMALE | | AIRPORT - | | | | REFERENCE RANGES | | [place] | | | | Follicular: Less than | | | | | | 1.6 ng/mL Luteal: 5.2 - | | | | | | 18.6 ng/mL 1st | | | | | | Trimester: 4.7 - 50.7 | | | | | | ng/mL 2nd Trimester: | | | | | | 19.4 - 45.3 ng/mL | | | | | | Post-Menopausal: Less | | | | | | than 1.0 ng/mL | | | | + + + + + + + + | Specimen | + + | Blood - Blood | + + + + + + + | Performing | Address | City/State/Zipcode | Phone Number | | Organization | | | | + + + + + | [facility] | [address] | [place] [address] | | | [place] | | | | + + + + + 17-HYDROXYPROGESTERONE, SERUM (11/16/2015 2:39 PM PST) + + + + + + | Component | Value | Ref Range | Performed | Pathologist | | | | | At | Signature | + + + + + + | 17-HYDROXYP | 190.00Comment: | <=206.00 ng/dL | [facility] | | | ROGEST | INTERPRETIVE INFORMATION | | REG UNIV | | | | for | | PTH - INTFC | | | | 17-Hydroxyprogesterone | | | | | | in females: Follicular | | | | | | | | | | | | 15 to 70 ng/dLLuteal | | | | | | | | | | | | 35 to 290 | | | | | | ng/dLREFERENCE INTERVAL: | | | | | | 17-Hydroxyprogesterone | | | | | | Qnt, HPLC-MS/MS Access | | | | | | complete set of age- | | | | | | and/or gender-specific | | | | | | reference intervals for | | | | | | this test in the [facility] | | | | | | Laboratory Test | | | | | | Directory ([facility]). | | | | | | Test developed and | | | | | | characteristics | | | | | | determined by [facility] | | | | | | Laboratories. See | | | | | | Compliance Statement B: | | | | | | [facility]/CSPerformed | | | | | | by [employer],[address] | | | | | | [address] [facility],[place] | | | | | | [address] | | | | | | [phone]. | | | | | | Devante pleitez, | | | | | | , Lab. Director | | | | + + + + + + + + | Specimen | + + | Blood - Blood | + + + + + + + | Performing | Address | City/State/Zipcode | Phone Number | | Organization | | | | + + + + + | [facility] | [address] | [place], [place] | | | UNIV PTH - INTFC | | [address] | | + + + + + PROLACTIN, SERUM (11/16/2015 2:39 PM PST) + + + + + + | Component | Value | Ref Range | Performed | Pathologist | | | | | At | Signature | + + + + + + | PROLACTIN | 6Comment: In , | 3 - 20 ng/mL | [facility] - | | | | Prolactin levels are | | AIRPORT - | | | | elevated above | | [place] | | | | non- levels: | | | | | | 4-fold during the first | | | | | | trimester 12-fold | | | | | | during the second | | | | | | trimester 20-fold | | | | | | during the third | | | | | | trimester | | | | + + + + + + + + | Specimen | + + | Blood - Blood | + + + + + + + | Performing | Address | City/State/Zipcode | Phone Number | | Organization | | | | + + + + + | [facility] | [address] | [place] [address] | | | [place] | | | | + + + + + TSH (11/16/2015 2:39 PM PST) + + + + + + | Component | Value | Ref Range | Performed | Pathologist | | | | | At | Signature | + + + + + + | TSH | 22.50 (H) | 0.40 - 3.98 | [facility] [...] + + + | [facility] | [address] | [place] [address] | | | SERVICES, CORE | [address] | | | + + + + + documented in this encounter Visit Diagnoses + + | Diagnosis | + + | Irregular menstrual cycle - Primary | + + | Hypothyroidism, unspecified hypothyroidism type | + + | Encounter for preconception consultation | + + documented in this encounter
--- OUTSIDE RECORDS SUMMARY | ~2019-08-22 | XMS | Encounter Summary ---
Demographics + + + | Address | [address] | | | [place] [address] | + + + | Home Phone [...] Author + + + | Author | [facility] | + + + | Organization | [facility] | + + + | Address | Unknown | + + + | Phone | Unavailable | + + + Support + + +---------+ + | Name | Relationship | Address | Phone | + + +---------+ + | Brittnee Wells | ECON | Unknown | | + + +---------+ + Care Team Providers + +------+ + | Care Lending Consultant Name | Role | Phone | + +------+ + | Zoe Stephen | PCP | | + +------+ + Encounter Details +--------+ + + + + | Date | Type | Department | Care Team | Description | +--------+ + + + + | 03/15/ | [facility] | [facility] | Paul Wheatley MD | RE:thyroid | | 2016 | Encounter | [facility] | [address] | | | | | Center Physicians | Geovany Zhang [place], | | | | | Pavilion [address] | [place] [address] | | | | | [address] | [phone] | | | | | Physician's | | | | | | Pavilion | | | | | | Physician's Pavilion | | | | | | [place], [place] | | | | | | [address] | | | | | | [phone] | | | +--------+ + + + [...] filedocumented as of this encounter Results TSH (05/03/2016 1:31 PM PDT) + +-------+ + + + | Component | Value | Ref Range | Performed | Pathologist | | | | | At | Signature | + +-------+ + + + | TSH | 0.92 | 0.40 - 3.98 | [facility] | [...] | + + + + + | [facility] | [address] | [place] [address] | | | MERLIN BERNAL | [address] | | | + + + + + documented in this encounter Visit Diagnoses + + | Diagnosis | + + | 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
--- OUTSIDE RECORDS SUMMARY | ~2019-08-22 | XMS | Encounter Summary ---
Demographics + + + | Address | [address] | | | [place] [address] | + + + | Home Phone | | + + + | Preferred Language | Unknown | + + + | Marital Status | | + + + | Pentecostalism Affiliation | Unknown | + + + [...] Team Providers + +------+ + | Care Highway Design Engineer Name | Role | Phone | + +------+ + | Zoe Stephen | PCP | | + +------+ + Encounter Details +--------+ + + + + | Date | Type | Department | Care Team | Description | +--------+ + + + + | 07/26/ | [facility] | [place] | Koki Jha MD | RE: Thyroid | | 2016 | Encounter | Fertility | [address] | | | | | Consultants at [facility] | [facility] [place] | | | | | [address] | [address] | | | | | Mailcode: [facility] | [phone] | | | | | [facility] | | | | | | and Healing, | | | | | | | | | | | | Floor [facility] [place] | | | | | | [address] | | | | | | [phone] | | | +--------+ + + + [...] + | Diagnosis | + + | TSH (thyroid-stimulating hormone deficiency) - Primary Other specified acquired | | hypothyroidism | + + documented in this encounter"
--- OUTSIDE RECORDS SUMMARY | ~2019-08-22 | XMS | Encounter Summary ---
Demographics + + + | Address | [address] | | | [place] [address] | + + + | Home Phone | | + + + | Preferred Language | Unknown | + + + | Marital Status | | + + + | Orthodoxy Affiliation | Unknown | + + + [...] Team Providers + +------+ + | Care Vegetable Trimmer Name | Role | Phone | + [...] Encounter for | | | | at [facility] 3rd Floor | | vitamin deficiency | | | | [address] | | screening | | | | [place], | | | | | | [place] [address] | | | | | | [phone] | | | +--------+------+ + + + [...] | + + + + + | [facility] | [address] | [place] [address] | | | GABE, MERLIN | [address] | | | + + + [...] | + + + + + | [facility] | [address] | [place] [address] | | | MERLIN BERNAL | [address] [...]
--- OUTSIDE RECORDS SUMMARY | ~2019-08-22 | XMS | Encounter Summary ---
Demographics + + + | Address | [address] | | | [place] [address] | + + + | Home Phone | | + + + | Preferred Language | Unknown | + + + | Marital Status | | + + + | Scientology Affiliation | Unknown | + + + | Race | White | + + + | Ethnic Group | Not or | + + + Author + + + | Author | [facility] | + + + | Organization | [facility] | + + + | Address | Unknown | + + + | Phone | Unavailable | + + + Support + + +---------+ + | Name | Relationship | Address | Phone | + + +---------+ + | Brittnee Wells | ECON | Unknown | | + + +---------+ + Care Team Providers + +------+ + | Care Knee Bolter Name | Role | Phone | + [...] [address] | | | | | | [place], [place] | Mailcode: | | | | | | [address] | [facility] | | | | | | Phone: | for Health | | | | | | [phone] | and Healing, | | | | | | Fax: | Building 1, | | | | | | [phone] | 10th Floor | | | | | | | [place], [place] | | | | | | | [address] | | | | | | | Phone: | | | | | | | [phone] | | | | | | | Fax: | | | | | | | [phone] | +--------+--------+ + + + + Encounter Details +--------+ + + + + | Date | Type | Department | Care Team | Description | +--------+ + + + + | 07/13/ | Procedure | [place] | aArti Christian MD | Trial Transfer; | | 2016 | | Fertility | [address] | Ultrasound Follicle | | | | Consultants at [facility] | Avani Zhang [place], | Exam | | | | [address] | [place] [address] | | | | | Mailcode: [facility] | [phone] | | | | | [facility] | | | | | | and Healing, | | | | | | Building | | | | | | Floor [place], [place] | | | | | | [address] | | | | | | [phone] | | | +--------+ + + + [...] | + +--------+ + + + | SC TRANSFER OF | Routin | 05/03/2016 | Encounter for | | | EMBRYO,INTRAUTERINE | e | 3:01 PM | assisted | | | | | PDT | reproductive | | | | | | fertility procedure | | | | | | cycle | | + +--------+ + + + | ELECTRONIC TESTER CYTOLOGY (PAP) | Routin | 05/03/2016 | Cervical cancer | Results for this | | | e | | screening | procedure are in the | | | | | | results section. | + +--------+ + + + documented in this encounter Results ELECTRONIC TESTER CYTOLOGY (PAP) (05/03/2016) + + + + + + | Component | Value | Ref Range | Performed | Pathologist | | | | | At | Signature | + + + + + + | ELECTRONIC TESTER | SOURCE OF SPECIMEN: | | [facility] [...] [place] | | | | | | SCT([facility])Cytotechnologis | | | | | | [...] | + + + + + | [facility] | [address] | [place] [address] | | | PATHOLOGY | [address] [...]
--- OUTSIDE RECORDS SUMMARY | ~2019-08-22 | XMS | Encounter Summary ---
Demographics + + + | Address | [address] | | | [place] [address] | + + + | Home Phone [...] + + + | Author | [facility] | + + + | Organization | [facility] | + + + | Address | Unknown | + + + | Phone | Unavailable | + + + Support + + +---------+ + | Name | Relationship | Address | Phone | + + +---------+ + | Brittnee Wells | ECON | Unknown | | + + +---------+ + Care Team Providers + +------+ + | Care Education Professor Name | Role | Phone | + +------+ + | Zoe Stephen | PCP | | + +------+ + Reason for Visit + + + | Reason | Comments | + + + | Refill Request | | + + + Encounter Details +--------+--------+ + + + | Date | Type | Department | Care Team | Description | +--------+--------+ + + + | 03/27/ | Refill | [facility] | Paul Wheatley MD | Refill Request | | 2017 | | [facility] | [address] | | | | | Center at [facility] | Avani Zhang [place], | | | | | Pavilion [address] | [place] [address] | | | | | [address] | [phone] | | | | | Physician's | | | | | | Pavilion | | | | | | Physician's Pavilion | | | | | | [place], [place] | | | | | | [address] | | | | | | [phone] | | | +--------+--------+ + + + Social History + + [...]
--- OUTSIDE RECORDS SUMMARY | ~2019-08-22 | XMS | Encounter Summary ---
Demographics + + + | Address | [address] | | | [place] [address] | + + + | Home Phone [...] Team Providers + +------+ + | Care Sanitarian Inspector Name | Role | Phone | + +------+ + | No Pcp Per Patient | PCP | Unavailable | + +------+ + Encounter Details +--------+ + + + + | Date | Type | Department | Care Team | Description | +--------+ + + + + | 11/19/ | MyChart | [place] | Danna Bradley, | Results | | 2016 | Encounter | Fertility | RN [address] | | | | | Consultants at [facility] | [address] | | | | | [address] | [place], [place] | | | | | Mailcode: [facility] | [address] | | | | | [facility] | | | | | | and Healing, | | | | | | | | | | | | Floor [place], [place] | | | | | | [address] | | | | | | [phone] | | | +--------+ + + + + Social History + +-------+ [...]
--- OUTSIDE RECORDS SUMMARY | ~2019-08-22 | XMS | Encounter Summary ---
Demographics + + + | Address | [address] | | | [place] [address] | + + + | Home Phone | | + + + | Preferred Language | Unknown | + + + | Marital Status | | + + + | Episcopalian Affiliation | Unknown | + + + | Race | White | + + + | Ethnic Group | Not or | + + + Author + + + | Author | [facility] | + + + | Organization | [facility] | + + + | Address | Unknown | + + + | Phone | Unavailable | + + + Support + + +---------+ + | Name | Relationship | Address | Phone | + + +---------+ + | Brittnee Wells | ECON | Unknown | | + + +---------+ + Care Team Providers + +------+ + | Care Dock Manager Name | Role | Phone | [...] | | | | | Procedures | [place] | [address] | | | | | CONSULT TO | [address] | Physician's | | | | | PERINATOLOGY | Phone: | [place] | | | | | | [phone] | [facility] [place] | | | | | | Fax: | [address] | | | | | | [phone] | Phone: | | | | | | | [phone] | | | | | | | Fax: | | | | | | | [phone] | +--------+--------+ + + + + Reason for Visit + + + | Reason | Comments | + + + | Care Coordination | | + + + Encounter Details +--------+ + + + + | Date | Type | Department | Care Team | Description | +--------+ + + + + | 04/04/ | [facility] | [place] | Koki Jha MD | RE:IVF Timeline | | 2016 | Encounter | Fertility | [address] | | | | | Consultants at [facility] | [place], [place] | | | | | [address] | [address] | | | | | Mailcode: [facility] | [phone] | | | | | [facility] | | | | | | and Healing, | | | | | | Building | | | | | | Floor [place], [place] | | | | | | [address] | | | | | | [phone] | | | +--------+ + + + [...] | + + + + + | [facility] | [address] | [place] [address] | | | SERVICES, CORE | PARK [...] [facility] | [address] | [place] [address] | | | SERVICES, [place] | [address] [...]
--- OUTSIDE RECORDS SUMMARY | ~2019-08-22 | XMS | Encounter Summary ---
Demographics + + + | Address | [address] | | | [place] [address] | + + + | Home Phone [...] Team Providers + +------+ + | Care Software Clerk Name | Role | Phone | + +------+ + | No Pcp Per Patient | PCP | Unavailable | + +------+ + Reason for Visit + + + | Reason | Comments | + + + | Treatment Planning | | + + + Encounter Details +--------+ + + + + | Date | Type | Department | Care Team | Description | +--------+ + + + + | 11/29/ | My[facility] | [place] | Koki Jha MD | G information, | | 2016 | Encounter | Fertility | [address] | [place] [facility] | | | | Consultants at [facility] | [place], [place] | patient information | | | | [address] | [address] | | | | | Mailcode: [facility] | [phone] | | | | | [facility] | | | | | | and [place], | | | | | | Building | | | | | | Floor [place], [place] | | | | | | [address] | | | | | | [phone] | | | +--------+ + + + [...] + | Diagnosis | + + | Investigation and testing for procreation management - Primary | + + documented in this encounter"
--- OUTSIDE RECORDS SUMMARY | ~2019-08-22 | XMS | Encounter Summary ---
Demographics + + + | Address | [address] | | | [place] [address] | + + + | Home Phone | | + + + | Preferred Language | Unknown | + + + | Marital Status | | + + + | Latter Day Affiliation | Unknown | + + + | Race | White | + + + | Ethnic Group | Not or | + + + Author + + + | Author | [facility] | + + + | Organization | [facility] | + + + | Address | Unknown | + + + | Phone | Unavailable | + + + Support + + +---------+ + | Name | Relationship | Address | Phone | + + +---------+ + | Brittnee Wells | ECON | Unknown | | + + +---------+ + Care Team Providers + +------+ + | Care Staffing Assistant Name | Role | Phone | + +------+ + | Zoe Stephen | PCP | | + +------+ + Reason for Visit + + + | Reason | Comments | + + + | Ultrasound Follicle | | | Exam | | + + + Encounter Details +--------+ + + + + | Date | Type | Department | Care Team | Description | +--------+ + + + + | 07/08/ | Procedure | University | John Espinoza MD | Ultrasound Follicle | | 2016 | | Fertility | [address] | Exam | | | | Consultants at [facility] | [place], [place] | | | | | [address] | [address] | | | | | Mailcode: [facility] | [phone] | | | | | [facility] | | | | | | and Healing, | | | | | | Building | | | | | | Floor [place], [place] | | | | | | [address] | | | | | | [phone] | | | +--------+ + + + [...] documented as of this encounter Progress Notes Khurram Escalante MA - 07/08/2016 7:07 AM PDTFormatting of this note might be different fro m the original. ENDOCRINE MANAGEMENT PROGRESS NOTE 07/08/2016 Day of stimulation: ATTAIN US/E2/P4; CD10 of Lupron Protocol: 1 HMG / 100 FSH w/Ovidrel Tri gger - Abhijeet/hrf Pt will need tram passes if needs to go to [facility] for medication Comments: Indication: ivf Approach: transvaginal Systems checklist: negative for uterine polyps, myomas, fluid in cavity, ovarian mass and f luid in cul-de-sac. Estradiol level: Lab Results Component Value Date ESTRADIOL 1048 07/08/2016 Progesterone level: Lab Results Component Value Date PROG <1 07/08/2016 FOLLICLE EXAMINATION / ENDOMETRIAL THICKNESS Endometrial thickness: 11.3 GradeGrade: 3 LARGEST FOLLICLES (Measured in Millimeters) RIGHT OVARY VOLUME: 29x50 LEFT OVARY VOLUME: 34x35 1 13x17 15 mean 1 15x25 20 mean 2 11x13 12 mean 2 12x12 12 mean 3 14x15 14.5 mean 3 16x18 17 mean 4 11x14 12.5 mean 4 9x13 11 mean 5 12x13 12.5 mean 5 7x11 9 mean 6 9x10 9.5 mean 6 9x10 9.5 mean 7 mean 7 18x19 18.5 mean 8 mean 8 mean 9 mean 9 mean 10 mean 10 mean Additional Follicles: Additional Follicles: Total Follicles: Total Follicles: Interpretation: technically meets criteria, but discordant growth Plan: same dose back sun vs hcg Will probably go one more day. D 10 today. Younger pt. Tried to reach dr young for scnd opinion Dr gilmore agrees w plan above Patient is here today for a blood draw for Estradiol and Progesterone. Blood draw done per clinic physician's order. Venipuncture performed without difficulty. Site: Right antecubital. Patient tolerated proc edure well. documented in this encou nter Plan of Treatment Not on filedocumented as of this encounter Procedures + +--------+ + + + | Procedure Name | Priori | Date/Time | Associated Diagnosis | Comments | | | ty | | | | + +--------+ + + + | [facility] COLLECTION | Routin | 07/08/2016 | Encounter for | | | VENOUS | e | 7:07 AM | assisted | | | BLOOD,VENIPUNCTURE | | PDT | reproductive | | | | | | fertility procedure | | | | | | cycle | | + +--------+ + + + | PROGESTERONE, SERUM | Routin | 07/08/2016 | Encounter for | Results for this | | - ANDROLOGY LAB | e | | assisted | procedure are in the | | | | | reproductive | results section. | | | | | fertility procedure | | | | | | cycle | | + +--------+ + + + | ESTRADIOL, SERUM - | Routin | 07/08/2016 | Encounter for | Results for this | | ANDROLOGY LAB | e | | assisted | procedure are in the | | | | | reproductive | results section. | | | | | fertility procedure | | | | | | cycle | | + +--------+ + + + documented in this encounter Results PROGESTERONE, SERUM - ANDROLOGY LAB (07/08/2016) + +-------+ + + + | Component [...] Midfollicular Phase: ND-0.98 Midcycle: 0.48-1.72 Luteal | [facility] | | Phase: 0.95-21 | LAB | + + + + + + + + | Performing | Address | City/State/Zipcode | Phone Number | | Organization | | | | + + + + + | [facility] | [address], | [place] [address] | | | | Tenth Floor | | | + + + + + ESTRADIOL, SERUM - ANDROLOGY LAB (07/08/2016) + +-------+ + + + | Component | Value | Ref Range | Performed | Pathologist | | | | | At | Signature | + +-------+ + + + | ESTRADIOL, | 1,048 | pg/ml | [facility] | | | SERUM ([facility]) | | | OGY LAB | | + +-------+ + + + + + | Specimen | + + | Blood | + + + + + | Narrative | Performed At | + + + | Estradiol (pg/ml) Ovulatory Cycles Follicular Phase: ND-160 | | | Follicular Phase, Day 2-3: ND84 Periovulatory: 34-400 Luteal | [facility] | | Phase: 27-245 | LAB | + + + + + + + + | Performing | Address | City/State/Zipcode | Phone Number | | Organization | | | | + + + + + | [facility] | [address] | [place] [address] | | | | Tenth Floor | | | + + + + + documented in this encounter Visit Diagnoses + + | Diagnosis | + + | Encounter for assisted reproductive fertility procedure cycle - Primary | + + documented in this encounter"
--- OUTSIDE RECORDS SUMMARY | ~2019-08-22 | XMS | Encounter Summary ---
Demographics + + + | Address | [address] | | | [place] [address] | + + + | Home Phone | | + + + | Preferred Language | Unknown | + + + | Marital Status | | + + + | Uatsdin Affiliation | Unknown | + + + | Race | White | + + + | Ethnic Group | Not or | + + + Author + + + | Author | [facility] | + + + | Organization | [facility] | + + + | Address | Unknown | + + + | Phone | Unavailable | + + + Support + + +---------+ + | Name | Relationship | Address | Phone | + + +---------+ + | Brittnee Wells | ECON | Unknown | | + + +---------+ + Care Team Providers + +------+ + | Care Active Directory Engineer Name | Role | Phone | [...] [address] | | | | | | [place], [place] | Mailcode: | | | | | | [address] | [facility] | | | | | | Phone: | for Health | | | | | | [phone] | and Healing, | | | | | | Fax: | Building 1, | | | | | | [phone] | 10th Floor | | | | | | | [facility] [place] | | | | | | | [address] | | | | | | | Phone: | | | | | | | [phone] | | | | | | | Fax: | | | | | | | [phone] | +--------+--------+ + + + + Encounter Details +--------+---------+ + + + | Date | Type | Department | Care Team | Description | +--------+---------+ + + + | 12/17/ | Office | University | Koki Jha MD | Female infertility | | 2016 | Visit | Fertility | [address] | of tubal origin | | | | Consultants at [facility] | [place], [place] | (Primary Dx) | | | | [address] | [address] | | | | | Mailcode: [facility] | [phone] | | | | | [facility] | | | | | | and Healing, | | | | | | | | | | | | Floor [place], [place] | | | | | | [address] | | | | | | [phone] | | | +--------+---------+ + + + [...] + + + | Blood Pressure | - | - | | + + + + + | Pulse | - | - | | + [...] + + + + | Weight | 82.6 kg (182 lb) | 12/17/2015 11:22 AM | | | | | PST | | + + + + + | Height | 162.6 cm (5' 4") | 12/17/2015 11:22 AM | | | | | PST | | + + + + + | Body Mass Index | 31.24 | 12/17/2015 11:22 AM | | | | | PST | | + + + + + documented in this encounter Progress Notes Koki Jha MD - 12/17/2015 12:01 PM PSTIVF Consultation Date: 12/17/2015 I met today with Melo Aguilar, and her for IVF Consultation. Melo is an 30 year old woman who presents with Other tubal disease. 30 yo A2 (diff partner) Cycles reg; PCOS? A1C 6.0 TSH elevated; +TPO; s/b med endo; on thyroxin HSG N cavity, R tube blocked, L tube delayed spill Partner - unproven; SA N count/mot, dec morph I did discuss in detail the following process for Invitro Fetilization with both of them in cluding but not limited to: Ovulation Induction: The medications used and risks in ovulation inductions. Monitoring of the cycle, pelvic ultrasounds and blood testing. The minimum response to egg retrieval. Egg Retrieval: The timing for egg retrieval. Anesthesia. Recovery information. Risk of bleeding, infection and injury to organs were reviewed at the time of the consult. Fertilization: Fertilization considerations were reviewed. Options include: insemination. Sample collection/sample freezing. Fertilization rate: ISCI 70 % Genetic risks, chromosomal, gene, imprinting errors were reviewed. We discussed the availability of genetic counseling. A review of defect risk was not discussed. Embryo Transfer: The following has been discussed: Embryo number: 1-2 Selective Reduction discussed: . Timing and Technique: Rate/Transfer: 60 %, PGD: no Live Rate/Transfer:50, AH: no Cryopreservation: yes Melo and her partner were advised about the process, risk, benefits and alternatives of In - Vitro fertilization. We specifically addressed the need for injection teaching, and pre -procedural blood work. During the consult the following risks were discussed: Canceled cycle, failed fertilization, ectopic , ovarian hyperstimulation, clot, st roke,, monozygotic twinning, medications, ovarian cancer, multiple , obstetric and risks. I have addressed the opportunity for financial counseling. A cost sheet was given and reviewed. Physician rotation was reviewed. Written Literature that covers the consult and treatment of IVF were offered to the patient . Screening tests were discussed. MFM consult TT/AFC (OK to dorene ALCALA) STD screening, labs Genetics consult Urology referral I spent 30 minutes with the patient, over half of which was spent in counseling the patient regarding IVF. 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
--- OUTSIDE RECORDS SUMMARY | ~2019-08-22 | XMS | Encounter Summary ---
Demographics + + + | Address | [address] | | | [place] [address] | + + + | Home Phone | | + + + | Preferred Language | Unknown | + + + | Marital Status | | + + + | Confucianist Affiliation | Unknown | + + + | Race | White | + + + | Ethnic Group | Not or | + + + Author + + + | Author | [facility] | + + + | Organization | [facility] | + + + | Address | Unknown | + + + | Phone | Unavailable | + + + Support + + +---------+ + | Name | Relationship | Address | Phone | + + +---------+ + | Brittnee Wells | ECON | Unknown | | + + +---------+ + Care Team Providers + +------+ + | Care Wig Comber Name | Role | Phone | + [...] [address] | | | | | | [place], [place] | Mailcode: | | | | | | [address] | [address] | | | | | | Phone: | for Health | | | | | | [phone] | and Healing, | | | | | | Fax: | Building 1, | | | | | | [phone] | 10th Floor | | | | | | | [place], [place] | | | | | | | [address] | | | | | | | Phone: | | | | | | | [phone] | | | | | | | Fax: | | | | | | | [phone] | +--------+--------+ + + + + Encounter Details +--------+---------+ + + + | Date | Type | Department | Care Team | Description | +--------+---------+ + + + | 06/28/ | Office | University | | Encounter for | | 2015 | Visit | Fertility | | assisted | | | | Consultants at [facility] | | reproductive | | | | [address] | | fertility procedure | | | | Mailcode: 10F | | cycle (Primary Dx) | | | | [place] [facility] | | | | | | and Healing, | | | | | | Building , 10th | | | | | | Floor [place], [place] | | | | | | [address] | | | | | | [phone] | | | +--------+---------+ + + + [...] her suppression check appointment. RN verified her [employer] Tech's License and witnessed all signatures. Consent given [...]
--- OUTSIDE RECORDS SUMMARY | ~2019-08-22 | XMS | Encounter Summary ---
Demographics + + + | Address | [address] | | | [place] [address] | + + + | Home Phone | | + + + | Preferred Language | Unknown | + + + | Marital Status | | + + + | Pentecostalism Affiliation | Unknown | + + + | Race | White | + + + | Ethnic Group | Not or | + + + Author + + + | Author | [facility] | + + + | Organization | [facility] | + + + | Address | Unknown | + + + | Phone | Unavailable | + + + Support + + +---------+ + | Name | Relationship | Address | Phone | + + +---------+ + | Brittnee Wells | ECON | Unknown | | + + +---------+ + Care Team Providers + +------+ + | Care Garage Manager Name | Role | Phone | + +------+ + | Zoe Stephen | PCP | | + +------+ + Encounter Details +--------+ + + + + | Date | Type | Department | Care Team | Description | +--------+ + + + + | 07/31/ | Pharmacy | [facility] | | | | 2015 | Visit | & [facility] | | | | | | [address] | | | | | | Mailcode: [place] | | | | | | [facility] and | | | | | | Healing, [address] | | | | | | [place], [place] | | | | | | [address] | | | | | | [phone] | | | +--------+ + + + [...]
--- OUTSIDE RECORDS SUMMARY | ~2019-08-22 | XMS | Encounter Summary ---
Demographics + + + | Address | [address] | | | [place] [address] | + + + | Home Phone | | + + + | Preferred Language | Unknown | + + + | Marital Status | | + + + | Oriental Orthodox Affiliation | Unknown | + + + | Race | White | + + + | Ethnic Group | Not or | + + + Author + + + | Author | [facility] | + + + | Organization | [facility] | + + + | Address | Unknown | + + + | Phone | Unavailable | + + + Support + + +---------+ + | Name | Relationship | Address | Phone | + + +---------+ + | Brittnee Wells | ECON | Unknown | | + + +---------+ + Care Team Providers + +------+ + | Care Ruby On Rails Consultant Name | Role | Phone | [...] | | | | | Center at [facility] | Avani Zhang [place], | | | | | [address] | [place] [address] | | | | | [address] | [phone] | | | | | Physician's | | | | | | Pavilion | | | | | | Physician's Pavilion | | | | | | [place], [place] | | | | | | [address] | | | | | | [phone] | | | +--------+--------+ + + + [...]
--- OUTSIDE RECORDS SUMMARY | ~2019-08-22 | XMS | Encounter Summary ---
Demographics + + + | Address | [address] | | | [place] [address] | + + + | Home Phone [...] + + + | Author | [facility] | + + + | Organization | [facility] | + + + | Address | Unknown | + + + | Phone | Unavailable | + + + Support + + +---------+ + | Name | Relationship | Address | Phone | + + +---------+ + | Brittnee Wells | ECON | Unknown | | + + +---------+ + Care Team Providers + +------+ + | Care Frog Or Oyster Farmworker Name | Role | Phone | + +------+ + | Zoe Stephen | PCP | | + +------+ + Encounter Details +--------+ + + + + | Date | Type | Department | Care Team | Description | +--------+ + + + + | 07/31/ | Pharmacy | [facility] | | | | 2015 | Visit | & [facility]aling Pharmacy | | | | | | [address] | | | | | | Mailcode: [place] | | | | | | [facility] and | | | | | | Healing, [address] | | | | | | [place], [place] | | | | | | [address] | | | | | | [phone] | | | +--------+ + + + [...]
--- OUTSIDE RECORDS SUMMARY | ~2019-08-22 | XMS | Encounter Summary ---
Demographics + + + | Address | [address] | | | [place] [address] | + + + | Home Phone | | + + + | Preferred Language | Unknown | + + + | Marital Status | | + + + | Synagogue Affiliation | Unknown | + + + [...] Team Providers + +------+ + | Care Mounting Inspector Name | Role | Phone | + +------+ + | Zoe Stephen | PCP | | + +------+ + Encounter Details +--------+ + + + + | Date | Type | Department | Care Team | Description | +--------+ + + + + | 07/26/ | [facility] | [place] | Koki Jha MD | RE: Thyroid | | 2016 | Encounter | Fertility | [address] | | | | | Consultants at [facility] | [facility] [place] | | | | | [address] | [address] | | | | | Mailcode: [facility] | [phone] | | | | | [facility] | | | | | | and Healing, | | | | | | | | | | | | Floor [facility] [place] | | | | | | [address] | | | | | | [phone] | | | +--------+ + + + [...]
--- OUTSIDE RECORDS SUMMARY | ~2019-08-22 | XMS | Encounter Summary ---
Demographics + + + | Address | [address] | | | [place] [address] | + + + | Home Phone | | + + + | Preferred Language | Unknown | + + + | Marital Status | | + + + | Rastafarian Affiliation | Unknown | + + + | Race | White | + + + | Ethnic Group | Not or | + + + Author + + + | Author | [facility] | + + + | Organization | [facility] | + + + | Address | Unknown | + + + | Phone | Unavailable | + + + Support + + +---------+ + | Name | Relationship | Address | Phone | + + +---------+ + | Brittnee Wells | ECON | Unknown | | + + +---------+ + Care Team Providers + +------+ + | Care Nut Sorter Operator Name | Role | Phone | + +------+ + | Zoe Stephen | PCP | | + +------+ + Encounter Details +--------+ + + + + | Date | Type | Department | Care Team | Description | +--------+ + + + + | 05/29/ | [facility] | [facility] | Paul Wheatley MD | RE: Jun 20 | | 2016 | Encounter | [facility] | [address] | | | | | Center Physicians | Geovany Zhang [place], | | | | | Pav[address] | [place] [address] | | | | | [address] | [phone] | | | | | Physician's | | | | | | Pavilion | | | | | | Physician's Pavilion | | | | | | [place], [place] | | | | | | [address] | | | | | | [phone] | | | +--------+ + + + [...] filedocumented as of this encounter Results TSH (06/20/2016 11:26 AM PDT) + + [...] | + + + + + | [facility] | [address] | [place] [address] | | | SERVICES, [place] | [address] | | | + + + + + documented in this encounter Visit Diagnoses + + | Diagnosis | + + | 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
--- OUTSIDE RECORDS SUMMARY | ~2019-08-22 | XMS | Encounter Summary ---
Demographics + + + | Address | [address] | | | [place] [address] | + + + | Home Phone | | + + + | Preferred Language | Unknown | + + + | Marital Status | | + + + | Denominational Affiliation | Unknown | + + + | Race | White | + + + | Ethnic Group | Not or | + + + Author + + + | Author | [facility] | + + + | Organization | [facility] | + + + | Address | Unknown | + + + | Phone | Unavailable | + + + Support + + +---------+ + | Name | Relationship | Address | Phone | + + +---------+ + | Brittnee Wells | ECON | Unknown | | + + +---------+ + Care Team Providers + +------+ + | Care Lock Stitch Channeler Name | Role | Phone | + [...] 06/08/ | MyChart | University | Koki hJa MD | Prior Authorization | | 2016 | Encounter | Fertility | [address] | | | | | Consultants at [facility] | [place], [place] | | | | | [address] | [address] | | | | | Mailcode: [facility] | [phone] | | | | | [facility] | | | | | | and Healing, | | | | | | Building | | | | | | Floor [place], [place] | | | | | | [address] | | | | | | [phone] | | | +--------+ + + + [...]
--- OUTSIDE RECORDS SUMMARY | ~2019-08-22 | XMS | Encounter Summary ---
Demographics + + + | Address | [address] | | | [place] [address] | + + + | Home Phone | | + + + | Preferred Language | Unknown | + + + | Marital Status | | + + + | Episcopal Affiliation | Unknown | + + + | Race | White | + + + | Ethnic Group | Not or | + + + Author + + + | Author | [facility] | + + + | Organization | [facility] | + + + | Address | Unknown | + + + | Phone | Unavailable | + + + Support + + +---------+ + | Name | Relationship | Address | Phone | + + +---------+ + | Brittnee Wells | ECON | Unknown | | + + +---------+ + Care Team Providers + +------+ + | Care Web Marketing Strategist Name | Role | Phone | + +------+ + | Zoe Stephen | PCP | | + +------+ + Reason for Visit + + + | Reason | Comments | + + + | Referral Needed | | + + + Encounter Details +--------+ + + + + | Date | Type | Department | Care Team | Description | +--------+ + + + + | 08/15/ | Telephone | [facility] | Koki Jha MD | Referral Needed | | 2016 | | Fertility | [address] | | | | | Consultants at [facility] | [place], [place] | | | | | [address] | [address] | | | | | Mailcode: [facility] | [phone] | | | | | [facility] | | | | | | and Mariah, | | | | | | [facility] | | | | | | Floor [place], [place] | | | | | | [address] | | | | | | [phone] | | | +--------+ + + + [...]
--- OUTSIDE RECORDS SUMMARY | ~2019-08-22 | XMS | Encounter Summary ---
Demographics + + + | Address | [address] | | | [place] [address] | + + + | Home Phone | | + + + | Preferred Language | Unknown | + + + | Marital Status | | + + + | Catholic Affiliation | Unknown | + + [...] Team Providers + +------+ + | Care Director Volunteer Services Name | Role | Phone | + [...] [address] | | | | | | [place], [place] | Mailcode: | | | | | | [address] | [facility] | | | | | | Phone: | for Health | | | | | | [phone] | and Healing, | | | | | | Fax: | Building 1, | | | | | | [phone] | 10th Floor | | | | | | | [facility] [place] | | | | | | | [address] | | | | | | | Phone: | | | | | | | [phone] | | | | | | | Fax: | | | | | | | [phone] | +--------+--------+ + + + + Encounter Details +--------+---------+ + + + | Date | Type | Department | Care Team | Description | +--------+---------+ + + + | 12/17/ | Office | University | Koki Jha MD | 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 | [place], [place] | (Primary Dx) | | | | [address] | [address] | | | | | Mailcode: [facility] | [phone] | | | | | [facility] | | | | | | and Healing, | | | | | | | | | | | | Floor [place], [place] | | | | | | [address] | | | | | | [phone] | | | +--------+---------+ + + + [...]
--- OUTSIDE RECORDS SUMMARY | ~2019-08-22 | XMS | Encounter Summary ---
Demographics + + + | Address | [address] | | | [place] [address] | + + + | Home Phone | | + + + | Preferred Language | Unknown | + + + | Marital Status | | + + + | Gnosticism Affiliation | Unknown | + + + [...] Team Providers + +------+ + | Care Squaring Machine Operator Name | Role | Phone | + +------+ + | Zoe Stephen | PCP | | + +------+ + Encounter Details +--------+ + + + + | Date | Type | Department | Care Team | Description | +--------+ + + + + | 06/20/ | [facility] | [facility] | Paul Wheatley MD | thyroid | | 2016 | Encounter | [facility] | [address] | | | | | Center Physicians | Avani Zhang [place], | | | | | [address] | [place] [address] | | | | | [address] | [phone] | | | | | Physician's | | | | | | Pavilion | | | | | | Physician's Pavilion | | | | | | [place], [place] | | | | | | [address] | | | | | | [phone] | | | +--------+ + + + [...]
--- OUTSIDE RECORDS SUMMARY | ~2019-08-22 | XMS | Encounter Summary ---
Demographics + + + | Address | [address] | | | [place] [address] | + + + | Home Phone | | + + + | Preferred Language | Unknown | + + + | Marital Status | | + + + | Christianity Affiliation | Unknown | + + + | Race | White | + + + | Ethnic Group | Not or | + + + Author + + + | Author | [facility] | + + + | Organization | [facility] | + + + | Address | Unknown | + + + | Phone | Unavailable | + + + Support + + +---------+ + | Name | Relationship | Address | Phone | + + +---------+ + | Brittnee Wells | ECON | Unknown | | + + +---------+ + Care Team Providers + +------+ + | Care Supervisor Boat Outfitting Name | Role | Phone | + [...] Description | +--------+--------+ + + + | 06/28/ | Refill | [facility] | Paul Wheatley MD | Refill Request | | 2017 | | [facility] | [address] | | | | | Center at [facility] | Avani Zhang [place], | | | | | Pav[address] | [place] [address] | | | | | [address] | [phone] | | | | | Physician's | | | | | | Pavilion | | | | | | Physician's Pavilion | | | | | | [place], [place] | | | | | | [address] | | | | | | [phone] | | | +--------+--------+ + + + [...]
--- OUTSIDE RECORDS SUMMARY | ~2019-08-22 | XMS | Encounter Summary ---
Demographics + + + | Address | [address] | | | [place] [address] | + + + | Home Phone | | + + + | Preferred Language | Unknown | + + + | Marital Status | | + + + | Presybeterian Affiliation | Unknown | + + + | Race | White | + + + | Ethnic Group | Not or | + + + Author + + + | Author | [facility] | + + + | Organization | [facility] | + + + | Address | Unknown | + + + | Phone | Unavailable | + + + Support + + +---------+ + | Name | Relationship | Address | Phone | + + +---------+ + | Brittnee Wells | ECON | Unknown | | + + +---------+ + Care Team Providers + +------+ + | Care Animal Care Assistant Name | Role | Phone | + +------+ + | Zoe Stephen | PCP | | + +------+ + Encounter Details +--------+ + + + + | Date | Type | Department | Care Team | Description | +--------+ + + + + | 10/30/ | [facility] | [facility] | Paul Wheatley MD | RE: Thyroid | | 2017 | Encounter | [facility] | [address] | | | | | Center Physicians | Avani Zhang [place], | | | | | Pav[address] | [place] [address] | | | | | [address] | [phone] | | | | | Physician's | | | | | | Pavilion | | | | | | Physician's Pavilion | | | | | | [place], [place] | | | | | | [address] | | | | | | [phone] | | | +--------+ + + + [...]
--- OUTSIDE RECORDS SUMMARY | ~2019-08-22 | XMS | Encounter Summary ---
Demographics + + + | Address | [address] | | | [place] [address] | + + + | Home Phone [...] + + + | Author | [facility] | + + + | Organization | [facility] | + + + | Address | Unknown | + + + | Phone | Unavailable | + + + Support + + +---------+ + | Name | Relationship | Address | Phone | + + +---------+ + | Brittnee Wells | ECON | Unknown | | + + +---------+ + Care Team Providers + +------+ + | Care Vending Route Driver Name | Role | Phone | + [...] Ave | | | | | | [place], [place] | Mailcode: | | | | | | [address] | [facility] | | | | | | Phone: | for Health | | | | | | [phone] | and Healing, | | | | | | Fax: | Building 1, | | | | | | [phone] | 10th Floor | | | | | | | [facility] [place] | | | | | | | [address] | | | | | | | Phone: | | | | | | | [phone] | | | | | | | Fax: | | | | | | | [phone] | +--------+--------+ + + + + Encounter Details +--------+ + + + + | Date | Type | Department | Care Team | Description | +--------+ + + + + | 08/11/ | Procedure | University | John Epsinoza MD | | | 2016 | | Fertility | [address] | | | | | Consultants at [facility] | [facility] [place] | | | | | [address] | [address] | | | | | Mailcode: [facility] | [phone] | | | | | [facility] | | | | | | and Mariah, | | | | | | | | | | | | Floor [facility] [place] | | | | | | [address] | | | | | | [phone] | | | +--------+ + + + [...] documented as of this encounter Progress Notes Amber Vazquez RN - 08/11/2016 2:32 PM PDTPt given printed copy of her Progesterone thro ugh the 10th week letter from 07/31/16 as well as printed instructions for P4 administration . RN also reviewed the plan verbally with the pt. She verbalized understanding, agreed with the plan of care, denied further questions or con cerns and stated will f/u PRN. 2: 35 PM PDTNoelle Storey MA - 08/11/2016 2:14 PM PDTFormatting of this note might be differe nt from the original. Obstetrical Ultrasound 08/11/2016 Indication: IVF Fresh ET date: 2xD6 on07/17/16 LMP: No LMP recorded. Gestational Age: 6w3d EDC: 04/03/17 Blood Type: Lab Results Component Value Date ABO O 11/16/2015 Lab Results Component Value Date RH Positive 11/16/2015 No results found for: ABSCREEN Baby A - Anterior Approach: transvaginal Uterus: normal Gestational Sac: present 1.75cm 6w5d Yolk Sac: present 3.3mm Stirling Rump Length = .55cm, gestational age: 6w2d Heart Beat: 125 bpm Baby B - Fundal/Posterior Approach: transvaginal Uterus: normal Gestational Sac: present 1.54cm 6w2d Yolk Sac: present; not seen, 3.6mm Stirling Rump Length = .64cm, gestational age: 6w3d Heart Beat: 119 bpm Left ovary/adnexa: normal; 45x43, multiple CL, largest CL: 29x31 Right ovary/adnexa: normal; 32x32, 1 larger follicle CL: 29x24 Interpretation: twin iup. Di di Size cw dates Plan: continue P4 Refer to dr Russo (?rita) in [place], John Espinoza MD, personally performed all components of this scan. documented in this encou nter Plan of Treatment Not on filedocumented as of this encounter Visit Diagnoses + + | Diagnosis | + + | resulting from assisted reproductive technology, first trimester [O09.811] - | | Primary | + + | resulting from assisted reproductive technology in first trimester | + + documented in this encounter"
--- OUTSIDE RECORDS SUMMARY | ~2019-08-22 | XMS | Encounter Summary ---
Demographics + + + | Address | [address] | | | [place] [address] | + + + | Home Phone [...] Providers + +------+ + | Care Environmental Remediation Engineer Name | Role | Phone | [...] | +--------+ + + + + | 01/04/ | Telephone | [place] | Koki Jha MD | Follow-up Plan | | 2016 | | Fertility | [address] | | | | | Consultants at [facility] | [place], [place] | | | | | [address] | [address] | | | | | Mailcode: [facility] | [phone] | | | | | [facility] | | | | | | and [place]iah, | | | | | | Building | | | | | | Floor [place], [place] | | | | | | [address] | | | | | | [phone] | | | +--------+ + + + [...]
--- OUTSIDE RECORDS SUMMARY | ~2019-08-22 | XMS | Encounter Summary ---
Demographics + + + | Address | [address] | | | [place] [address] | + + + | Home Phone [...] + + | Author | [facility] | + + + | Organization | [facility] | + + + | Address | Unknown | + + + | Phone | Unavailable | + + + Support + + +---------+ + | Name | Relationship | Address | Phone | + + +---------+ + | Brittnee Wells | ECON | Unknown | | + + +---------+ + Care Team Providers + +------+ + | Care Stoneworking Sander Name | Role | Phone | + [...] | | Pav[address] | [place] [address] | | | | | [address] | [phone] | | | | | Physician's | | | | | | Pavilion | | | | | | Physician's Pavilion | | | | | | [place], [place] | | | | | | [address] | | | | | | [phone] | | | +--------+ + + + [...] | + + + + + | [facility] | [address] | [place] [address] | | | [facility] | [address] | | | + + + + + documented in this encounter Visit Diagnoses + + | Diagnosis | + + | 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
--- OUTSIDE RECORDS SUMMARY | ~2019-08-22 | XMS | Encounter Summary ---
Demographics + + + | Address | [address] | | | [place] [address] | + + + | Home Phone | | + + + | Preferred Language | Unknown | + + + | Marital Status | | + + + | Restorationist Affiliation | Unknown | + + + [...] Team Providers + +------+ + | Care Student Records Coordinator Name | Role | Phone | + +------+ + | Zoe Stephen | PCP | | + +------+ + Encounter Details +--------+------+ + + + | Date | Type | Department | Care Team | Description | +--------+------+ + + + | 05/03/ | Lab | Laboratory at [facility] | | Gabriel's disease | | 2015 | | [address] | | | | | | [place], [place] | | | | | | [address] | | | | | | [phone] | | | +--------+------+ + + + [...] + + | TSH | Routin | 05/03/2016 | Gabriel's | Results for this | | | e | 1:31 PM | disease | procedure are in the | | | | PDT | | results section. | + +--------+ + + + documented in this encounter Results TSH (05/03/2016 1:31 PM [...] | + + + + + | [facility] | [address] | [place] [address] | | | SERVICES, CORE | [address] | | | + + + + + documented in this encounter Visit Diagnoses + + | Diagnosis | + + | Gabriel's disease Chronic lymphocytic thyroiditis | + + documented in this encounter"
--- OUTSIDE RECORDS SUMMARY | ~2019-08-22 | XMS | Encounter Summary ---
Demographics + + + | Address | [address] | | | [place] [address] | + + + | Home Phone [...] Author + + + | Author | [facility] | + + + | Organization | [facility] | + + + | Address | Unknown | + + + | Phone | Unavailable | + + + Support + + +---------+ + | Name | Relationship | Address | Phone | + + +---------+ + | Brittnee Wells | ECON | Unknown | | + + +---------+ + Care Team Providers + +------+ + | Care Geriatric Assistant Name | Role | Phone | + +------+ + | Zoe Stephen | PCP | | + +------+ + Encounter Details +--------+ + + + + | Date | Type | Department | Care Team | Description | +--------+ + + + + | 08/28/ | [facility] | [facility]ja | Paul Wheatley MD | RE: Thyroid | | 2016 | Encounter | [facility] | [address] | | | | | Center Physicians | Avani Zhang [place], | | | | | [address] | [place] [address] | | | | | [address] | [phone] | | | | | Physician's | | | | | | Pavilion | | | | | | Physician's Pavilion | | | | | | [place], [place] | | | | | | [address] | | | | | | [phone] | | | +--------+ + + + [...]
--- OUTSIDE RECORDS SUMMARY | ~2019-08-22 | XMS | Encounter Summary ---
Demographics + + + | Address | [address] | | | [place] [address] | + + + | Home Phone | | + + + | Preferred Language | Unknown | + + + | Marital Status | | + + + | Advent Affiliation | Unknown | + + + [...] Team Providers + +------+ + | Care User Interface Engineer Name | Role | Phone | [...] | Closed | | Reproductive | | Abhijeet | Roya Endo | | | | Endocrinology | | MD Koki | [facility] | | | | /Infertility | | [address] | [address] | | | | | | Ave | Ave | | | | | | [place], [place] | Mailcode: | | | | | | [address] | [address] | | | | | | Phone: | for Health | | | | | | [phone] | and Healing, | | | | | | Fax: | Building 1, | | | | | | [phone] | 10th Floor | | | | | | | [place], [place] | | | | | | | [address] | | | | | | | Phone: | | | | | | | [phone] | | | | | | | Fax: | | | | | | | [phone] | +--------+--------+ + + + + Encounter Details +--------+ + + + + | Date | Type | Department | Care Team | Description | +--------+ + + + + | 07/07/ | Procedure | University | Coleman Emery MD | Ultrasound Follicle | | 2016 | | Fertility | [address] | Exam | | | | Consultants at [facility] | [place], [place] | | | | | [address] | [address] | | | | | Mailcode: CH10 | [phone] | | | | | [facility] | | | | | | and Healing, | | | | | | Building 1, | | | | | | Floor [place], [place] | | | | | | [address] | | | | | | [phone] | | | +--------+ + + + [...] documented as of this encounter Progress Notes Landry Gusman MA - 07/07/2016 9:28 AM PDT ENDOCRINE MANAGEMENT PROGRESS NOTE 07/07/2016 Day of stimulation: ATTAIN US/E2; CD9 of Lupron Protocol: 1 HMG / 100 FSH w/Ovidrel Trigger - Abhijeet/hrf Comments: Indication: INF Approach: transvaginal Systems checklist: negative for uterine polyps, myomas, fluid in cavity, ovarian mass and f luid in cul-de-sac. Estradiol level: Lab Results Component Value Date ESTRADIOL 750 07/07/2016 Progesterone level: Lab Results Component Value Date PROG 8.9 11/16/2015 FOLLICLE EXAMINATION / ENDOMETRIAL THICKNESS Endometrial thickness: 11.9mm Grade: 3 LARGEST FOLLICLES (Measured in Millimeters) RIGHT OVARY VOLUME: LEFT OVARY VOLUME: 1 12 mean 1 16.5 mean 2 11 mean 2 11 mean 3 6.5 mean 3 15 mean 4 11 mean 4 14.5 mean 5 9 mean 5 17 mean 6 mean 6 14 mean 7 mean 7 mean 8 mean 8 mean 9 mean 9 mean 10 mean 10 mean Additional Follicles: Additional Follicles: Total Follicles: 10 Total Follicles: 11 Interpretation: discordant growth Plan: cont same RTC 1d I, Coleman Emery MD, performed all aspects of this ultrasound. documented in this encou nter Plan of Treatment Not on filedocumented as of this encounter Visit Diagnoses + + | Diagnosis | + + | Encounter for assisted reproductive fertility procedure cycle - Primary | + + documented in this encounter"
--- OUTSIDE RECORDS SUMMARY | ~2019-08-22 | XMS | Encounter Summary ---
Demographics + + + | Address | [address] | | | [place] [address] | + + + | Home Phone | | + + + | Preferred Language | Unknown | + + + | Marital Status | | + + + | Judaism Affiliation | Unknown | + + + [...] Team Providers + +------+ + | Care Show Jumping Instructor Name | Role | Phone | + [...] + + | 01/04/ | Telephone | [place] | Koki Jha MD | Follow-up Plan | | 2016 | | Fertility | [address] | | | | | Consultants at [facility] | [place], [place] | | | | | [address] | [address] | | | | | Mailcode: CH10F | [phone] | | | | | [facility] | | | | | | and Mariah, | | | | | | Building | | | | | | Floor [place], [place] | | | | | | [address] | | | | | | [phone] | | | +--------+ + + + [...]
--- OUTSIDE RECORDS SUMMARY | ~2019-08-22 | XMS | Encounter Summary ---
Demographics + + + | Address | [address] | | | [place] [address] | + + + | Home Phone [...] Team Providers + +------+ + | Care Pin Setter Name | Role | Phone | + [...] | +--------+ + + + + | 07/09/ | Procedure | University | John Espinoza MD | Ultrasound Follicle | | 2016 | | Fertility | [address] | Exam | | | | Consultants at [facility] | [place], [place] | | | | | [address] | [address] | | | | | Mailcode: [facility] | [phone] | | | | | [facility] | | | | | | and Healing, | | | | | | Building | | | | | | Floor [place], [place] | | | | | | [address] | | | | | | [phone] | | | +--------+ + + + [...] encounter Progress Notes Khurram Escalante MA - 07/09/2016 7:14 AM PDTFormatting of this note might be different fro m the original. ENDOCRINE MANAGEMENT PROGRESS NOTE 07/09/2016 Day of stimulation: ATTAIN US/E2/P4; CD11 of Lupron Protocol: 1 HMG / 100 FSH w/Ovidrel Tri gger - Abhijeet/hrf Comments: Indication: ivf Approach: transvaginal Systems checklist: negative for uterine polyps, myomas, fluid in cavity, ovarian mass and f luid in cul-de-sac. Estradiol level: Lab Results Component Value Date ESTRADIOL 1299 07/09/2016 Progesterone level: Lab Results Component Value Date PROG <1 07/09/2016 FOLLICLE EXAMINATION / ENDOMETRIAL THICKNESS Endometrial thickness: trace of fluid/ 11.8 Grade: LARGEST FOLLICLES (Measured in Millimeters) RIGHT OVARY VOLUME: 38x55 LEFT OVARY VOLUME: 43x56 1 10x13 11.5 mean 1 19x21 20 mean 2 8x12 10 mean 2 15x16 15.5 mean 3 15x16 15.5 mean 3 21x22 21.5 mean 4 9x9 9 mean 4 16x23 20 mean 5 17x17 17 mean 5 12x12 12 mean 6 11x13 12 mean 6 9x10 9.5 mean 7 12x13 12.5 mean 7 7x11 9 mean 8 5x9 7 mean 8 mean 9 5x9 7 mean 9 mean 10 mean 10 mean Additional Follicles: Additional Follicles: Total Follicles: Total Follicles: Interpretation: follicles mature Plan: hcg tonight 730 I, John Espinoza MD, personally performed all components of this scan. Patient is here today for a blood [...] + | [employer] COLLECTION | Routin | 07/09/2016 | Encounter for | | | VENOUS | e | 7:15 AM | assisted | | | BLOOD,VENIPUNCTURE [...]
--- OUTSIDE RECORDS SUMMARY | ~2019-08-22 | XMS | Encounter Summary ---
Demographics + + + | Address | [address] | | | [place] [address] | + + + | Home Phone [...] Team Providers + +------+ + | Care Automatic Equipment Technician Name | Role | Phone | [...] | | Center Physicians | Avani Zhang [place], | | | | | Pavilion [address] | [place] [address] | | | | | [address] | [phone] | | | | | Physician's | | | | | | Pavilion | | | | | | [facility] | | | | | | [place], [place] | | | | | | [address] | | | | | | [phone] | | | +--------+ + + + [...]
--- OUTSIDE RECORDS SUMMARY | ~2019-08-22 | XMS | Encounter Summary ---
Demographics + + + | Address | [address] | | | [place] [address] | + + + | Home Phone [...] Team Providers + +------+ + | Care Clinical Laboratory Medical Director Name | Role | Phone | [...] | +--------+ + + + + | 07/27/ | Telephone | [place] | Koki Jha MD | Lab findings, | | 2016 | | Fertility | [address] | teaching, guidance, | | | | Consultants at [facility] | [place], [place] | and counseling | | | | [address] | [address] | | | | | Mailcode: CH10F | [phone] | | | | | [facility] | | | | | | and Healing, | | | | | | Building | | | | | | [place], [place] | | | | | | [address] | | | | | | [phone] | | | +--------+ + + + [...] resulting from assisted reproductive technology, first trimester - Primary | + + documented in this encounter"
--- OUTSIDE RECORDS SUMMARY | ~2019-08-22 | XMS | Encounter Summary ---
Demographics + + + | Address | [address] | | | [place] [address] | + + + | Home Phone | | + + + | Preferred Language | Unknown | + + + | Marital Status | | + + + | Alevism Affiliation | Unknown | + + + [...] Team Providers + +------+ + | Care Correctional Program Officer Name | Role | Phone | + [...] Ave | | | | | | [place], [place] | Mailcode: | | | | | | [address] | [facility] [place] | | | | | | Phone: | for Health | | | | | | [phone] | and Healing, | | | | | | Fax: | Building 1, | | | | | | [phone] | 10th Floor | | | | | | | [place], [place] | | | | | | | [address] | | | | | | | Phone: | | | | | | | [phone] | | | | | | | Fax: | | | | | | | [phone] | +--------+--------+ + + + + Encounter Details +--------+ + + + + | Date | Type | Department | Care Team | Description | +--------+ + + + + | 07/31/ | Telephone-S | [place] | Draw, [facility] | Lab findings, | | 2016 | cheduled | Fertility | [address] [place] | teaching, guidance, | | | | Consultants at [facility] | [place] [address] | and counseling | | | | [address] | | | | | | Mailcode: CH10F | | | | | | [facility] | | | | | | and Healing, | | | | | | Building 1, | | | | | | Floor [place], [place] | | | | | | [address] | | | | | | [phone] | | | +--------+ + + + [...]
--- OUTSIDE RECORDS SUMMARY | ~2019-08-22 | XMS | Encounter Summary ---
Demographics + + + | Address | [address] | | | [place] [address] | + + + | Home Phone [...] Team Providers + +------+ + | Care Preventative Maintenance Technician Name | Role | Phone | [...] Ave | | | | | | [place], [place] | Mailcode: | | | | | | [address] | [facility] | | | | | | Phone: | for Health | | | | | | [phone] | and Healing, | | | | | | Fax: | Building 1, | | | | | | [phone] | 10th Floor | | | | | | | [place], [place] | | | | | | | [address] | | | | | | | Phone: | | | | | | | [phone] | | | | | | | Fax: | | | | | | | [phone] | +--------+--------+ + + + + Encounter Details +--------+ + + + + | Date | Type | Department | Care Team | Description | +--------+ + + + + | 07/27/ | Telephone-S | [place] | [facility] | | | 2016 | chesayda | Fertility | [address] | | | | | Consultants at [facility] | [place] [address] | | | | | [address] | | | | | | Mailcode: CH10F | | | | | | [facility] | | | | | | and Healing, | | | | | | Building | | | | | | [place], [place] | | | | | | [address] | | | | | | [phone] | | | +--------+ + + + [...] + + | LAB REPORTS | | 07/27/2016 | | Results for this | | | | 12:00 AM | | procedure are in the | | | | PDT | | results section. | + +--------+ + + + documented in this encounter Results LAB REPORTS (07/27/2016 12:00 AM PDT) + + + | Narrative | Performed At | + + + | | | + + + documented in this encounter Visit Diagnoses Not on filedocumented in this encounter"
--- OUTSIDE RECORDS SUMMARY | ~2019-08-22 | XMS | Encounter Summary ---
Demographics + + + | Address | [address] | | | [place] [address] | + + + | Home Phone [...] Author | [facility] | + + + | Organization | [facility] | + + + | Address | Unknown | + + + | Phone | Unavailable | + + + Support + + +---------+ + | Name | Relationship | Address | Phone | + + +---------+ + | Brittnee Wells | ECON | Unknown | | + + +---------+ + Care Team Providers + +------+ + | Care Stocking And Box Shop Supervisor Name | Role | Phone | [...] | +--------+ + + + + | 06/05/ | Telephone | [place] | Koki Jha MD | Care Coordination | | 2016 | | Fertility | [address] | | | | | Consultants at [facility] | [place], [place] | | | | | [address] | [address] | | | | | Mailcode: [facility] | [phone] | | | | | [facility] | | | | | | and Healing, | | | | | | Building , | | | | | | Floor [place], [place] | | | | | | [address] | | | | | | [phone] | | | +--------+ + + + [...] | ESTRADIOL, SERUM - | Routin | 07/02/2016 | Encounter for | Results for this | | ANDROLOGY LAB | e | | assisted | procedure are in the | | | | | reproductive | results section. | | | | | fertility procedure | | | | | | cycle | | + +--------+ + + + | ESTRADIOL, SERUM - | Routin | 06/28/2016 | Encounter for | Results for this | | ANDROLOGY LAB | e | | assisted | procedure are in the | | | | | reproductive | results section. | | | | | fertility procedure | | | | | | cycle | | + +--------+ + + + documented in this encounter Results ESTRADIOL, SERUM - ANDROLOGY LAB (07/02/2016) + +-------+ + + + | Component | Value | Ref Range | Performed | Pathologist | | | | | At | Signature | + +-------+ + + + | ESTRADIOL, | 138 | pg/ml | [facility] | | | SERUM ([facility]) | | [...] LAB | [address], | [place] [address] | | | | Tenth Floor | | | + + + + + ESTRADIOL, SERUM - ANDROLOGY LAB (06/28/2016) + +-------+ + + + | Component | Value | Ref Range | Performed | Pathologist | | | | | At | Signature | + +-------+ + + + | ESTRADIOL, | 43.2 | pg/ml | [facility] | | | SERUM ([facility]) | | | OGY LAB | | + +-------+ + + + + + | Specimen | + + | Blood | + + + + + | Narrative | Performed At | + + + | Estradiol (pg/ml) Ovulatory Cycles Follicular Phase: ND-160 | | | Follicular Phase, Day 2-3: ND-84 Periovulatory: 34-400 Luteal | [facility] | | Phase: 27-245 | LAB | + + + + + + + + | Performing | Address | City/State/Zipcode | Phone Number | | Organization | | | | + + + + + | [facility] | [address], | [place] [address] | | | | Tenth Floor | | | + + + + + VITAMIN D, 25-HYDROXY, SERUM (06/20/2016 11:26 AM [...] + | [facility] | [address] | [place] [address] | | | GABE, CORE | [address] | | | + + + + + documented in this encounter Visit Diagnoses + + | Diagnosis | + + | Encounter for assisted reproductive fertility procedure cycle - Primary | + + | Encounter for vitamin deficiency screening Screening for other and unspecified | | endocrine, nutritional, metabolic, and immunity disorders | + + documented in this encounter"
--- OUTSIDE RECORDS SUMMARY | ~2019-08-22 | XMS | Encounter Summary ---
Demographics + + + | Address | [address] | | | [place] [address] | + + + | Home Phone [...] + + + | Author | [facility] | + + + | Organization | [facility] | + + + | Address | Unknown | + + + | Phone | Unavailable | + + + Support + + +---------+ + | Name | Relationship | Address | Phone | + + +---------+ + | Brittnee Wells | ECON | Unknown | | + + +---------+ + Care Team Providers + +------+ + | Care Stocking Inspector Name | Role | Phone | + +------+ + | Zoe Stephen | PCP | | + +------+ + Reason for Visit + + + | Reason | Comments | + + + | Embryo Transfer | 2x D6 | + + + Other (Routine) +--------+--------+ [...] Ave | | | | | | [place], [place] | Mailcode: | | | | | | [address] | [address] | | | | | | Phone: | for Health | | | | | | [phone] | and Healing, | | | | | | Fax: | Building 1, | | | | | | [phone] | 10th Floor | | | | | | | [place], [place] | | | | | | | [address] | | | | | | | Phone: | | | | | | | [phone] | | | | | | | Fax: | | | | | | | [phone] | +--------+--------+ + + + + Encounter Details +--------+ + + + + | Date | Type | Department | Care Team | Description | +--------+ + + + + | 07/17/ | Procedure | University | Aarti Christian MD | Embryo Transfer (2x | | 2016 | | Fertility | [address] | D6) | | | | Consultants at [facility] | Avani Zhang [place], | | | | | [address] | [place] [address] | | | | | Mailcode: CH10F | [phone] | | | | | [facility] | | | | | | and Mariah, | | | | | | [facility] | | | | | | Floor [place], [place] | | | | | | [address] | | | | | | [phone] | | | +--------+ + + + [...] + + + | Blood Pressure | 124/77 | 07/17/2016 10:48 AM | | | | | PDT | | + + + + + | Pulse | 115 | 07/17/2016 10:48 AM | | | | | PDT [...] + + + + | Weight | 81.7 kg (180 lb 3.2 | 07/17/2016 10:48 AM | | | | oz) | PDT | | + + + + + | Height | 162.6 cm (5' 4") | 07/17/2016 10:48 AM | | | | | PDT | | + + + + + | Body Mass Index | 30.93 | 07/17/2016 10:48 AM | | | | | PDT | | + + + + + documented in this encounter Progress Notes Aarti Christian MD - 07/17/2016 3:46 PM PDTEMBRYO TRANSFER TRANSFER #: 1 Type: Fresh ET Catheter: SoftPass Echo Depth: 6/6.5 Patient and embryos identified by clinic and lab staff. No additional risk Mock embryo transfer done. In easily. Comment: Catheter: afterloaded Clear view by ultrasound. Flash seen: yes Catheter checked by embryologist; retained embryo: no. Residential Glazier: TADEO Patient identity was confirmed. Melo Aguilar agrees to transfer 2 day 6 embryo(s) for fertility treatment. Melo understands that there is a risk of multiple after a ny embryo transfer. In addition, she acknowledges that this risk increases with an increasin g number of embryos that are transferred. Risks and complications associated with multiple p regnancy were discussed with Melo, including twins, triplets or greater. Risk of multiple gestation discussed including labor, delivery of compromised infants, need for bed rest, increased risk for diabetes, hypertension, bleeding, c section, and gravid hysterectomy, etc. She understands and accepts these risk for this embryo transfer. Patient was placed in the modified dorsal lithotomy position. Cervix was visualized, a Soft Pass Echo catheter was passed through the cervical os and into the uterus. Using ultrasound guidance the transfer of 2 embryos were placed into the uterus. Catheter was then removed. Patient remained resting on table for 20 minutes. Patient tolerated procedure well, no compl ications. Patient was educated to keep taking PNV, avoid NSAIDs in next 2 weeks, and refrain from drinking alcohol and smoking. Patient was instructed to do test in 14 days i f no period and call back. documented in this encoun ter Plan of Treatment + +------+--------+ + + | Name | Type | Priori | Associated Diagnoses | Order Schedule | | | | ty | | | + +------+--------+ + + | HCG BETA, PLASMA | Lab | Urgent | | Ordered: 07/17/2016 | | | | | examination or test, | | | | | | | | | | | | unconfirmed | | + +------+--------+ + + | PROGESTERONE, SERUM | Lab | Urgent | | Ordered: 07/17/2016 | | | | | examination or test, | | | | | | | | | | | | unconfirmed | | + +------+--------+ + + documented as of this encounter Procedures + +--------+ + + + | Procedure Name | Priori | Date/Time | Associated Diagnosis | Comments | | | ty | | | | + +--------+ + + + | [place] TRANSFER OF | Routin | 07/17/2016 | Encounter for | | | EMBRYO,INTRAUTERINE | e | 3:46 PM | assisted | | | | | PDT | reproductive | | | | | | fertility procedure | | | | | | cycle | | + +--------+ + + + documented in this encounter Visit Diagnoses + + | Diagnosis | + + | examination or test, unconfirmed - Primary | + + | Encounter for assisted reproductive fertility procedure cycle | + + documented in this encounter
--- OUTSIDE RECORDS SUMMARY | ~2019-08-22 | XMS | Encounter Summary ---
Demographics + + + | Address | [address] | | | [place] [address] | + + + | Home Phone | | + + + | Preferred Language | Unknown | + + + | Marital Status | | + + + | Buddhism Affiliation | Unknown | + + + | Race | White | + + + | Ethnic Group | Not or | + + + Author + + + | Author | [facility] | + + + | Organization | [facility] | + + + | Address | Unknown | + + + | Phone | Unavailable | + + + Support + + +---------+ + | Name | Relationship | Address | Phone | + + +---------+ + | Brittnee Wells | ECON | Unknown | | + + +---------+ + Care Team Providers + +------+ + | Care Synoptic Meteorologist Name | Role | Phone | + [...] Ave | | | | | | [facility] [place] | Mailcode: | | | | | | [address] | [facility] | | | | | | Phone: | for Health | | | | | | [phone] | and Healing, | | | | | | Fax: | Building 1, | | | | | | [phone] | 10th Floor | | | | | | | [place], [place] | | | | | | | [address] | | | | | | | Phone: | | | | | | | [phone] | | | | | | | Fax: | | | | | | | [phone] | +--------+--------+ + + + + Encounter Details +--------+---------+ + + + | Date | Type | Department | Care Team | Description | +--------+---------+ + + + | 11/16/ | Office | University | Koki Jha MD | Irregular menstrual | | 2016 | Visit | Fertility | [address] | cycle (Primary Dx); | | | | Consultants at [facility] | [place], [place] | Hypothyroidism, | | | | [address] | [address] | unspecified | | | | Mailcode: [facility] | [phone] | hypothyroidism type; | | | | [facility] | | Encounter for | | | | and Healing, | | preconception | | | | Building | | consultation | | | | Floor [facility] [place] | | | | | | [address] | | | | | | [phone] | | | +--------+---------+ + + + [...] MD - 11/16/2015 2:41 PM PST30 yo [id number]? 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 Infertility 2. PCOS? 3. Hypothyroidism 4. RPL? 5. Failed Clomid/TIC P// hormone profile, labs today Implications of PCOS reviewed HSG rx doxy SA Then, RTC Genetic testing offered - declined Encouraged to d/c smoking Options briefly discussed Probably Rx LE 5 mg/IUI x 3 cycles OPKs [facility] CD#12ish Success rates, risks, costs discussed I [...] | | [facility] | | | [address] | | | [place] [address] | | + + + + + [...] | + + + + + | [facility] | [address] | [place] [address] | | | SERVICES, | [address] [...] + | [facility] - AIRPORT - | [address] | [place] [address] | | | [place] | | | [...] | + + + + + | [facility] | [address] | [place] [address] | | | SERVICES, SPECIAL | PARK [...] | | | | | | Directory (ClickEquations). | | | | + + + [...] | | | | | | Directory (ClickEquations). | | | | | | Test developed and | | | | | | characteristics | | | | | | determined by [facility] | | | | | | Laboratories. See | | | | | | Compliance Statement B: | | | | | | ClickEquations/CS | | | | + + + [...] | | | this test in the [facility] | | | | | | Laboratory Test | | | | | | Directory (ClickEquations). | | | | | | Test developed and | | | | | | characteristics | | | | | | determined by [facility] | | | | | | Laboratories. See | | | | | | Compliance Statement B: | | | | | | ClickEquations/CSPerformed | | | | | | by [employer],[address] | | | | | | [address], [facility] | | | | | | [address] | | | | | | [phone].[email or web address]. | | | | | | maik, [...] [facility] | [address] | [place], [place] | | | UN[address] - INTFC | | [address] | | + + + + + [...] + | [facility] - | [address] | [place] [address] | | | [place] | | | [...] | | | REFERENCE RANGES | | [place] | | | | Follicular: Less than [...] + | [facility] - | [address] | [place] [address] | | | [place] | | | | + + + [...] | | | | | | Directory (ClickEquations). | | | | | | Test developed and | | | | | | characteristics | | | | | | determined by [facility] | | | | | | Laboratories. See | | | | | | Compliance Statement B: | | | | | | [employer]Elephant.is/CSPerformed | | | | | | by [employer],[address] | | | | | | [address] [facility] | | | | | | [address] | | | | | | [phone].[email or web address]. | | | | | | Devante [...] [facility] | [address] | [place], [place] | | | UN[address] [place] - INT[place] | | [address] | | + + + + + [...] | | | elevated above | | [place] | | | | non- levels: | [...] | + + + + + | [facility] - | [address] | [place] [address] | | | [place] | | | [...] + + + | [facility] | [address] | [place] [address] | | | SERVICES, CORE | GEOVANY [...]
--- OUTSIDE RECORDS SUMMARY | ~2019-08-22 | XMS | Encounter Summary ---
Demographics + + + | Address | [address] | | | [place] [address] | + + + | Home Phone [...] Team Providers + +------+ + | Care Funeral Home Director Name | Role | Phone | [...] [place] | | | | | [facility] | Avani Zhang [place], | | | | | Pav[address] | [place] [address] | | | | | [address] | [phone] | | | | | Physician's | | | | | | Pavilion | | | | | | Physician's Pavilion | | | | | | [place], [place] | | | | | | [address] | | | | | | [phone] | | | +--------+ + + + [...] LIPID LAB | [address] | [place], [place] | | | | [facility] | [address] | | + + + + + documented in this encounter Visit Diagnoses Not on filedocumented in this encounter"
--- OUTSIDE RECORDS SUMMARY | ~2019-08-22 | XMS | Encounter Summary ---
Demographics + + + | Address | [address] | | | [place] [address] | + + + | Home Phone [...] Team Providers + +------+ + | Care Diagnostic Medical Sonographer Name | Role | Phone | + [...] + + | 08/15/ | Telephone | [facility] | Koki Jha MD | Referral Needed | | 2016 | | Fertility | [address] | | | | | Consultants at [facility] | [place], [place] | | | | | [address] | [address] | | | | | Mailcode: CH10F | [phone] | | | | | [facility] | | | | | | and [place], | | | | | | [facility] | | | | | | Floor [place], [place] | | | | | | [address] | | | | | | [phone] | | | +--------+ + + + [...]
--- OUTSIDE RECORDS SUMMARY | ~2019-08-22 | XMS | Encounter Summary ---
Demographics + + + | Address | [address] | | | [place] [address] | + + + | Home Phone [...] + + | Author | [facility] | + + + | Organization | [facility] | + + + | Address | Unknown | + + + | Phone | Unavailable | + + + Support + + +---------+ + | Name | Relationship | Address | Phone | + + +---------+ + | Brittnee Wells | ECON | Unknown | | + + +---------+ + Care Team Providers + +------+ + | Care Winch Derrick Operator Name | Role | Phone | [...] level | | | | Center at [facility] | Avani Zhang [place], | | | | | Pavilion [address] | [place] [address] | | | | | [address] | [phone] | | | | | Physician's | | | | | | Pavilion | | | | | | Physician's Pavilion | | | | | | [place], [place] | | | | | | [address] | | | | | | [phone] | | | +--------+ + + + [...]
--- OUTSIDE RECORDS SUMMARY | ~2019-08-22 | XMS | Encounter Summary ---
Demographics + + + | Address | [address] | | | [place] [address] | + + + | Home Phone | | + + + | Preferred Language | Unknown | + + + | Marital Status | | + + + | Tenriism Affiliation | Unknown | + + + | Race | White | + + + | Ethnic Group | Not or | + + + Author + + + | Author | [facility] | + + + | Organization | [facility] | + + + | Address | Unknown | + + + | Phone | Unavailable | + + + Support + + +---------+ + | Name | Relationship | Address | Phone | + + +---------+ + | Brittnee Wells | ECON | Unknown | | + + +---------+ + Care Team Providers + +------+ + | Care Hydraulic Rock Drill Operator Name | Role | Phone | + +------+ + | No Pcp Per Patient | PCP | Unavailable | + +------+ + Encounter Details +--------+------+ + + + | Date | Type | Department | Care Team | Description | +--------+------+ + + + | 11/16/ | Lab | Laboratory at [facility] | | Hypothyroidism, | | 2016 | | [address] | | unspecified | | | | [place], [place] | | hypothyroidism type; | | | | [address] | | Irregular menstrual | | | | [phone] | | cycle; Encounter | | | | | | for preconception | | | | | | consultation | +--------+------+ + + + Social History + +-------+ [...] | + +--------+ + + + | TESTOSTERONE, | Routin | 11/16/2015 | Irregular | Results for this | | FEMALE/CHILD:FREE, | e | 2:39 PM | menstrual cycle | procedure are in the | | TOTAL, SHB | | PST | | results section. | + +--------+ + + + | ANTI-MULLERIAN | Routin | 11/16/2015 | Irregular | Results for this | | HORMONE | e | 2:39 PM | menstrual cycle | procedure are in the | | | | PST | Encounter for | results section. | | | | | preconception | | | | | | consultation | | + +--------+ + + + | 17-HYDROXYPROGESTERO | Routin | 11/16/2015 | Irregular | Results for this | | NE, SERUM | e | 2:39 PM | menstrual cycle | procedure are in the | | | | PST | | results section. | + +--------+ + + + | RUBELLA IGG AB, | Routin | 11/16/2015 | Encounter for | Results for this | | SERUM | e | 2:39 PM | preconception | procedure are in the | | | | PST | consultation | results section. | + +--------+ + + + | ABO & RH TYPE | Routin | 11/16/2015 | Encounter for | Results for this | | | e | 2:39 PM | preconception | procedure are in the | | | | PST | consultation | results section. | + +--------+ + + + | PROLACTIN | Routin | 11/16/2015 | Irregular | Results for this | | | e | 2:39 PM | menstrual cycle | procedure are in the | | | | PST | | results section. | + +--------+ + + + | PROGESTERONE, SERUM | Routin | 11/16/2015 | Irregular | Results for this | | | e | 2:39 PM | menstrual cycle | procedure are in the | | | | PST | | results section. | + +--------+ + + + | DHEA-SULFATE, SERUM | Routin | 11/16/2015 | Irregular | Results for this | | | e | 2:39 PM | menstrual cycle | procedure are in the | | | | PST | | results section. | + +--------+ + + + | TSH | Routin | 11/16/2015 | Hypothyroidism, | Results for this | | | e | 2:39 PM | unspecified | procedure are in the | | | | PST | hypothyroidism type | results section. | + +--------+ + + + | HEMOGLOBIN A1C, | Routin | 11/16/2015 | Irregular | Results for this | | BLOOD | e | 2:39 PM | menstrual cycle | procedure are in the | | | | PST | | results section. | + +--------+ + + + documented in this encounter Results ANTI-MULLERIAN HORMONE (11/16/2015 2:39 [...] | | [facility] | | | [address] [facility] [address] | | | [place] [address] | | + + + + + [...] [facility] | [address] | [place] [address] | | | SERVICES, | [address] [...] | + + + + + | [facility] - | [address] | [place] [address] | | | [place] | | | | + + + [...] | + + + + + | [facility] | [address] | [place] [address] | | | SERVICES, SPECIAL | PARK [...] | | | this test in the [facility] | | | | | | Laboratory Test | | | | | | Directory ([employer] Website). | | | | + + + [...] | | | this test in the [facility] | | | | | | Laboratory Test | | | | | | Directory ([employer] Website). | | | | | | Test developed and | | | | | | characteristics | | | | | | determined by [facility] | | | | | | Laboratories. See | | | | | | Compliance Statement B: | | | | | | [employer] Website/CS | | | | + + + [...] | | | this test in the [facility] | | | | | | Laboratory Test | | | | | | Directory ([employer] Website). | | | | | | Test developed and | | | | | | characteristics | | | | | | determined by [facility] | | | | | | Laboratories. See | | | | | | Compliance Statement B: | | | | | | [employer] Website/CSPerformed | | | | | | by Tippr,[address] | | | | | | Shankar Fortune, [facility] | | | | | | [address] | | | | | | [phone].Tapgage. | | | | | | [facility], Devante Barton, | | | | | | , [...] [facility] | [address] | [place], [place] | | | UN[facility] P[facility] - INT[facility] | | [address] | | + + + + + [...] + | [facility] - | [address] | [place] [address] | | | [place] | | | [...] | | | REFERENCE RANGES | | [place] | | | | Follicular: Less than [...] + | [facility] - | [address] | [place] [address] | | | [place] | | | [...] | | | | | | Directory ([employer] Website). | | | | | | Test developed and | | | | | | characteristics | | | | | | determined by [facility] | | | | | | Laboratories. See | | | | | | Compliance Statement B: | | | | | | [employer] Website/CSPerformed | | | | | | by Tippr,[address] | | | | | | Shankar Fortune, [facility] | | | | | | [address] | | | | | | [phone].Tapgage. | | | | | | [facility], Devante Barton, | | | | | | Francy [...] + | [facility] | [address] | [place], [place] | | | UN[facility] PTH - INTFC | | [address] | | + + + + + [...] | | Prolactin levels are | | [facility] | | | | elevated above | | [place] | | | | non- levels: | [...] + | [facility] - | [address] | [place] [address] | | | [place] | | | [...] | + + + + + | [facility] | [address] | [place] [address] | | | [facility] | [address] | | | + + + + + documented in this encounter Visit Diagnoses + + | Diagnosis | + + | Hypothyroidism, unspecified hypothyroidism type | + + | Irregular menstrual cycle | + + | Encounter for preconception consultation | + + documented in this encounter"
--- OUTSIDE RECORDS SUMMARY | ~2019-08-22 | XMS | Encounter Summary ---
Demographics + + + | Address | [address] | | | [place] [address] | + + + | Home Phone [...] Team Providers + +------+ + | Care Eyeletter Name | Role | Phone | + +------+ + | No Pcp Per Patient | PCP | Unavailable | + +------+ + Reason for Referral Consultation (Routine) +--------+--------+ + + + + | Status | Reason | Specialty | Diagnoses / | Referred By | Referred To | | | | | Procedures | Contact | Contact | +--------+--------+ + + + + | Closed | | Obstetrics & | Diagnoses | Abhijeet, | Maura, | | | | Gynecology | Nutritional | MD Koki | Ciarra Ferreira, | | | | | assessment | [address] | [address] | | | | | Procedures | Ilana | [address] | | | | | CONSULT TO | [place], [place] | Avani Zhang | | | | | ADULT | [address] | [place], [place] | | | | | MEDICAL | Phone: | [phone] | | | | | NUTRITIONAL | [phone] | | | | | | THERAPY | Fax: | | | | | | | [phone] | | +--------+--------+ + + + + Consultation (Urgent) +--------+--------+ + + + + | Status | Reason | Specialty | Diagnoses / | Referred By | Referred To | | | | | Procedures | Contact | Contact | +--------+--------+ + + + + | Closed | | Endocrinology | Diagnoses | Abhijeet, | End General | | | | , Diabetes & | Thyroid | MD Koki | [address] | | | | Metabolism | condition | [address] | [place] | | | | | Procedures | Ave | Avani Zhang | | | | | CONSULT TO | [facility] [place] | Physician's | | | | | ENDOCRINOLOG | [address] | Pavilion | | | | | Y | Phone: | Physician's | | | | | | [phone] | Pavilion | | | | | | Fax: | [place], [place] | | | | | | [phone] | [address] | | | | | | | Phone: | | | | | | | [phone] | | | | | | | Fax: | | | | | | | [phone] | +--------+--------+ + + + + Reason for Visit + + + | Reason | Comments | + + + | Lab findings, | | | teaching, guidance, | | | and counseling | | + + + Encounter Details +--------+ + + + + | Date | Type | Department | Care Team | Description | +--------+ + + + + | 11/18/ | Telephone | [facility] | Koki Jha MD | Lab findings, | | 2016 | | Fertility | [address] | teaching, guidance, | | | | Consultants at [facility] | [place], [place] | and counseling | | | | [address] | [address] | | | | | Mailcode: CH10F | [phone] | | | | | [facility] | | | | | | and Healing, | | | | | | | | | | | | Floor [facility] [place] | | | | | | [address] | | | | | | [phone] | | | +--------+ + + + [...] + | Diagnosis | + + | Thyroid condition - Primary Unspecified disorder of thyroid | + + | Nutritional assessment Other specified examination | + + documented in this encounter"
--- OUTSIDE RECORDS SUMMARY | ~2019-08-22 | XMS | Encounter Summary ---
Demographics + + + | Address | [address] | | | [place] [address] | + + + | Home Phone | | + + + | Preferred Language | Unknown | + + + | Marital Status | | + + + | Mandaen Affiliation | Unknown | + + + [...] Team Providers + +------+ + | Care Pourer Crane Ladle Name | Role | Phone | + +------+ + | Zoe Stephen | PCP | | + +------+ + Encounter Details +--------+ + + + + | Date | Type | Department | Care Team | Description | +--------+ + + + + | 05/22/ | [facility] | [place] | Koik Jha MD | RE: IVF | | 2016 | Encounter | Fertility | [address] | | | | | Consultants at [facility] | [facility] [place] | | | | | [address] | [address] | | | | | Mailcode: [facility] | [phone] | | | | | [facility] | | | | | | and Healing, | | | | | | | | | | | | Floor [facility] [place] | | | | | | [address] | | | | | | [phone] | | | +--------+ + + + [...]
--- OUTSIDE RECORDS SUMMARY | ~2019-08-22 | XMS | Encounter Summary ---
Demographics + + + | Address | [address] | | | [place] [address] | + + + | Home Phone | | + + + | Preferred Language | Unknown | + + + | Marital Status | | + + + | Yazdanism Affiliation | Unknown | + + + | Race | White | + + + | Ethnic Group | Not or | + + + Author + + + | Author | [facility] | + + + | Organization | [facility] | + + + | Address | Unknown | + + + | Phone | Unavailable | + + + Support + + +---------+ + | Name | Relationship | Address | Phone | + + +---------+ + | Brittnee Wells | ECON | Unknown | | + + +---------+ + Care Team Providers + +------+ + | Care Jordan Man Name | Role | Phone | + [...] | | | | | [place] | | | | | | [place] [address] | | | +--------+ + + + [...]
--- OUTSIDE RECORDS SUMMARY | ~2019-08-22 | XMS | Encounter Summary ---
Demographics + + + | Address | [address] | | | [place] [address] | + + + | Home Phone [...] Team Providers + +------+ + | Care Sales Support Specialist Name | Role | Phone | + +------+ + | Zoe Stephen | PCP | | + +------+ + Reason for Visit + + + | Reason | Comments | + + + | Hypothyroidism | | + + + | New patient | | | consultation | | + + + Consultation (Urgent) +--------+--------+ + [...] | condition | [address] | [place] | | | | | Procedures | Ave | Geovany Zhang | | | | | CONSULT TO | [place], [place] | Physician's | | | | | ENDOCRINOLOG | [address] | Pavilion | | | | | Y | Phone: | Physician's | | | | | | [phone] | Pavilion | | | | | | Fax: | [place], [place] | | | | | | [phone] | [address] | | | | | | | Phone: | | | | | | | [phone] | | | | | | | Fax: | | | | | | | [phone] | +--------+--------+ + + + + Encounter Details +--------+---------+ + + + | Date | Type | Department | Care Team | Description | +--------+---------+ + + + | 11/30/ | Office | [facility] | Paul Wheatley MD | Gabriel's disease | | 2016 | Visit | [facility] | [address] | (Primary Dx) | | | | Center at Physicians | Geovany Zhang [place], | | | | | Pavilion [address] | [place] [address] | | | | | [address] | [phone] | | | | | Physician's | | | | | | Pavilion | | | | | | Physician's Pavilion | | | | | | [place], [place] | | | | | | [address] | | | | | | [phone] | | | +--------+---------+ + + + Social History + + + +--------+------+ | Tobacco Use | Types | Packs/Day | Years | Date | | | | | Used | | + + + +--------+------+ | Current Every Day | Cigarettes | 0.5 | | | | Smoker | | | | | + + + +--------+------+ + + | Tobacco Cessation: Ready to Quit: No; Counseling Given: Yes | + + + + +---------+ + | Alcohol Use [...] + + + | Blood Pressure | 130/70 | 11/30/2015 10:42 AM | | | | | PST | | + + + + + | Pulse | 82 | 11/30/2015 10:42 AM | | | | | PST | | + + + + + | Temperature | - | - | | + + + + + | Respiratory Rate | 12 | 11/30/2015 10:42 AM | | | | | PST | | + + + + + | Oxygen Saturation | - | - | | + + + + + | Inhaled Oxygen | - | - | | | Concentration | | | | + + + + + | Weight | 82.6 kg (182 lb) | 11/30/2015 10:42 AM | | | | | PST | | + + + + + | Height | 162.6 cm (5' 4") | 11/30/2015 10:42 AM | | | | | PST | | + + + + + | Body Mass Index | 31.24 | 11/30/2015 10:42 AM | | | | | PST | | + + + + + documented in this encounter Progress Notes Paul Wheatley MD - 11/30/2015 11:09 AM PSTFormatting of this note might be different from t tessie original. Endocrine Clinic Referring Provider Koki Jha MD [address] [place] [address] Reason for visit: Hypothyroid HPI 30 yo woman diagnosed with hypothyroidism at age 15 after presenting with chest pain and la ctation. 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 A recent TSH was 22 while on armo ur thyroid. Pt has weight gain, fatigue, feels cold, stiffness, anxiety, depression, heartbu rn, constipation. No neck pain, neck swelling, eye pain. Last menses was 11/26/15. 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 (Pharmacist to substitute salt form as needed) Start 2 days prior to HSG appointment, Disp: 10 tablet, Rfl: 0 folic acid 0.4 mg oral tablet, Take 400 mcg by mouth once daily., Disp: , Rfl: LEVOXYL 137 mcg oral tablet, Take 1 tablet by mouth once daily. No generics, Disp: 90 table t, Rfl: 0 multivitamin oral capsule, Take 1 capsule by mouth once daily., Disp: , Rfl: History Social History Marital Status: Spouse Name: N/A Number of Children: N/A Years of Education: N/A Occupational History Not on file. 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 A 13 system ROS has been reviewe d and is located in the patients scanned paper chart. PE Filed Vitals: 11/30/2015 10:42 AM Height: 1.626 m (5' 4") Weight: 82.555 kg (182 lb) BP: 130/70 Pulse: 82 Resp: 12 PainSc: 0 - Zero BMI: 31.22 kg/(m^2) General: Pleasant, no acute distress Head: Normocephalic, atraumatic Eyes: PERRL, EOMI, No lid lag, No stare ENT: No cervical lymphadenopathy, Oral mucosa without exudates, Thyroid 15 gms in size with out nodules or tenderness Respiratory: Clear to auscultation Musculoskeletal: No vertebral spine tenderness to palpation, No kyphosis Cardiovascular: Regular, no rubs, no murmurs Gastrointestinal: Abdomen soft, nontender, nondistended, positive bowel sounds Extremities: No lower extremity edema Neurologic: No tremor with outstretched hands, 5/5 upper extremity strength bilaterally, 5/ 5 lower extremity strength bilaterally, alert and oriented x 3 Skin: No acanthosis, no facial plethora, no supraclavicular fat pads, no abdominal striae, no ecchymosis. Psychiatric: Patient is intelligent and conversational A/p 1. Hypothyroid: likely due to autoimmune thyroid disease. The pts TSH of 22 is incompatible with a healthy . [place] or desiccated thyroid hormone is impure and can lead to fl uctuating thyroid levels. Furthermore, the use of T3 is not recommended during . Wi ll switch pt to brand name Levoxyl 137 mcg daily for dose consistency. Goal TSH is under 2.5 . Once , pt will contact me immediately so I can increase the dose by 30%. Check HCG today as pt not on control. 11 :15 AM PSTdocumented in this encounter Plan of Treatment Not on filedocumented as of this encounter Results TSH RECEPTOR AB, SERUM [...] by | | | | | | ZoomTilt,500 | | | | | | Shankar Fortune, [facility] [place] | | | | | | [address] | | | | | | [phone].[email or web address]. | | | | | | maik, [...] [facility] | [address] | [place], [place] | | | UN[facility] - [facility] | | [address] | | + + + + + [...] PTH - INTFC | | | | [place] [address] | | | | | | [phone].[email or web address]. | | | | | | [address] [...] [facility] | [address] | [place], [place] | | | UN[facility] - [facility] | | [address] | | + + + + + [...] | + + + + + | [facility] | [address] | [place] [address] | | | SERVICES, CORE | [address] [...] | | | LABORATORY | | | PANAMANIAN | | | SERVICES, | | | [...] the MDRD equation recommended by the | [facility] | | National Kidney Disease Education Program. Estimated GFR | LABORATORY | | Interpretive Information: <60 mL/min/1.73 sq m | SERVICES, CORE | | Chronic Kidney Disease <15 [...] + + | [facility] | [address] | [place] [address] | | | SERVICES, CORE | PARK [...] 5-6 weeks | | | 850 - 98684 6-7 weeks | | | 4000 - [phone] 7-12 weeks | | | 54983 - 460553 12-16 weeks | | | 74346 - 598528 16-29 | | | weeks 1400 - 25150 | | | 29-41 weeks 940 - 04794 | | | | | + + + + + + + + | Performing | Address | City/State/Zipcode | Phone Number | | Organization | | | | + + + + + | [facility] | [address] | [place] [address] | | | SERVICES, CORE | [address] | | | + + + + + documented in this encounter Visit Diagnoses + + | Diagnosis | + + | 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
--- OUTSIDE RECORDS SUMMARY | ~2019-08-22 | XMS | Encounter Summary ---
Demographics + + + | Address | [address] | | | [place] [address] | + + + | Home Phone [...] + + | Author | [facility] | + + + | Organization | [facility] | + + + | Address | Unknown | + + + | Phone | Unavailable | + + + Support + + +---------+ + | Name | Relationship | Address | Phone | + + +---------+ + | Brittnee Wells | ECON | Unknown | | + + +---------+ + Care Team Providers + +------+ + | Care Seafood Process Worker Name | Role | Phone | + +------+ + | Zoe Stephen | PCP | | + +------+ + Encounter Details +--------+ + + + + | Date | Type | Department | Care Team | Description | +--------+ + + + + | 06/06/ | Pharmacy | [facility] | | | | 2015 | Visit | & [facility] | | | | | | [address] | | | | | | Mailcode: [place] | | | | | | [facility] and | | | | | | Healing, [address] | | | | | | [place], [place] | | | | | | [address] | | | | | | [phone] | | | +--------+ + + + [...]
--- OUTSIDE RECORDS SUMMARY | ~2019-08-22 | XMS | Encounter Summary ---
Demographics + + + | Address | [address] | | | [place] [address] | + + + | Home Phone [...] Team Providers + +------+ + | Care Hr Specialist Name | Role | Phone | [...] + + | 12/17/ | Telephone | [facility] | Koki Jha MD | Financial Review | | 2016 | | Fertility | [address] | | | | | Consultants at [facility] | [place], [place] | | | | | [address] | [address] | | | | | Mailcode: CH10 | [phone] | | | | | [facility] | | | | | | and [place], | | | | | | Building | | | | | | Floor [facility] [place] | | | | | | [address] | | | | | | [phone] | | | +--------+ + + + [...]
--- OUTSIDE RECORDS SUMMARY | ~2019-08-22 | XMS | Encounter Summary ---
Demographics + + + | Address | [address] | | | [place] [address] | + + + | Home Phone [...] Team Providers + +------+ + | Care Train Inspector Name | Role | Phone | + +------+ + | Zoe Stephen | PCP | | + +------+ + Encounter Details +--------+ + + + + | Date | Type | Department | Care Team | Description | +--------+ + + + + | 07/04/ | [facility] | [place] | Koki Jha MD | RE: Documents to be | | 2016 | Encounter | Fertility | [address] | signed | | | | Consultants at [facility] | [facility] [place] | | | | | [address] | [address] | | | | | Mailcode: [facility] | [phone] | | | | | [facility] | | | | | | and Healing, | | | | | | | | | | | | Floor [place], [place] | | | | | | [address] | | | | | | [phone] | | | +--------+ + + + [...]
--- OUTSIDE RECORDS SUMMARY | ~2019-08-22 | XMS | Encounter Summary ---
Demographics + + + | Address | [address] | | | [place] [address] | + + + | Home Phone | | + + + | Preferred Language | Unknown | + + + | Marital Status | | + + + | Adventism Affiliation | Unknown | + + + [...] Team Providers + +------+ + | Care Loaders Name | Role | Phone | + +------+ + | No Pcp Per Patient | PCP | Unavailable | + +------+ + Encounter Details +--------+ + + + + | Date | Type | Department | Care Team | Description | +--------+ + + + + | 11/19/ | MyChart | [facility] | Danna Bradley, | Results | | 2016 | Encounter | Fertility | RN [address] | | | | | Consultants at [facility] | [address] | | | | | [address] | [place], [place] | | | | | Mailcode: CH10F | [address] | | | | | [facility] | | | | | | and Healing, | | | | | | | | | | | | Floor [place], [place] | | | | | | [address] | | | | | | [phone] | | | +--------+ + + + [...]
--- OUTSIDE RECORDS SUMMARY | ~2019-08-22 | XMS | Encounter Summary ---
Demographics + + + | Address | [address] | | | [place] [address] | + + + | Home Phone | | + + + | Preferred Language | Unknown | + + + | Marital Status | | + + + | Worship Affiliation | Unknown | + + + [...] Team Providers + +------+ + | Care Hospitality Director Name | Role | Phone | + +------+ + | oZe Stephen | PCP | | + +------+ + Reason for Visit + + + | Reason | Comments | + + + | Refill Request | | + + + Encounter Details +--------+ + + + + | Date | Type | Department | Care Team | Description | +--------+ + + + + | 09/22/ | Telephone | Arnold Pantoja | Paul Wheatley MD | Refill Request | | 2016 | | Diabetes Health | [address] | | | | | Center at [facility] | [address] [place], | | | | | Pavilion [address] | [place] [address] | | | | | [address] | [phone] | | | | | Physician's | | | | | | Pavilion | | | | | | [facility] Pavilion | | | | | | [place], [place] | | | | | | [address] | | | | | | [phone] | | | +--------+ + + + [...]
--- OUTSIDE RECORDS SUMMARY | ~2019-08-22 | XMS | Encounter Summary ---
Demographics + + + | Address | [address] | | | [place] [address] | + + + | Home Phone | | + + + | Preferred Language | Unknown | + + + | Marital Status | | + + + | Hinduism Affiliation | Unknown | + + + [...] Team Providers + +------+ + | Care Color Stripper Name | Role | Phone | + [...] Request | | | | Consultants at [facility] | [place], [place] | | | | | [address] | [address] | | | | | Mailcode: [facility] | [phone] | | | | | [facility] | | | | | | and Healing, | | | | | | Building | | | | | | Floor [place], [place] | | | | | | [address] | | | | | | [phone] | | | +--------+ + + + [...]
--- OUTSIDE RECORDS SUMMARY | ~2019-08-22 | XMS | Encounter Summary ---
Demographics + + + | Address | [address] | | | [place] [address] | + + + | Home Phone [...] Team Providers + +------+ + | Care Operating Room Technician Name | Role | Phone | [...] Description | +--------+--------+ + + + | 07/10/ | Refill | Arnold Pantoja | Paul Wheatley MD | Refill Request | | 2017 | | [facility] | [address] | | | | | Center at [facility] | [address] [place], | | | | | Pavilion [address] | [place] [address] | | | | | [address] | [phone] | | | | | Physician's | | | | | | Pavilion | | | | | | Phys[facility] Pavilion | | | | | | [place], [place] | | | | | | [address] | | | | | | [phone] | | | +--------+--------+ + + + [...]
--- OUTSIDE RECORDS SUMMARY | ~2019-08-22 | XMS | Encounter Summary ---
Demographics + + + | Address | [address] | | | [place] [address] | + + + | Home Phone [...] Team Providers + +------+ + | Care Pulp Maker Name | Role | Phone | + +------+ + | Zoe Stephen | PCP | | + +------+ + Encounter Details +--------+ + + + + | Date | Type | Department | Care Team | Description | +--------+ + + + + | 05/22/ | [place] | [place] | Koki Jha MD | RE: IVF | | 2016 | Encounter | Fertility | [address] | | | | | Consultants at [facility] | [facility] [place] | | | | | [address] | [address] | | | | | Mailcode: [facility] | [phone] | | | | | [facility] | | | | | | and Healing, | | | | | | | | | | | | Floor [facility] [place] | | | | | | [address] | | | | | | [phone] | | | +--------+ + + + [...]
--- OUTSIDE RECORDS SUMMARY | ~2019-08-22 | XMS | Encounter Summary ---
Demographics + + + | Address | [address] | | | [place] [address] | + + + | Home Phone | | + + + | Preferred Language | Unknown | + + + | Marital Status | | + + + | Quaker Affiliation | Unknown | + + + [...] Team Providers + +------+ + | Care Welding Machine Operator Friction Name | Role | Phone | + [...] | | Center [facility] | [address] [place], | | | | | Pav[address] | [place] [address] | | | | | [address] | [phone] | | | | | Physician's | | | | | | Pavilion | | | | | | Physician's Pavilion | | | | | | [place], [place] | | | | | | [address] | | | | | | [phone] | | | +--------+ + + + [...] + + + + | [facility] | [address] | [place] [address] | | | SERVICES, [place] | [address] | | | + + + + + documented in this encounter Visit Diagnoses + + | Diagnosis | + + | 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
--- OUTSIDE RECORDS SUMMARY | ~2019-08-22 | XMS | Encounter Summary ---
Demographics + + + | Address | [address] | | | [place] [address] | + + + | Home Phone [...] Team Providers + +------+ + | Care Wrapper Caser Name | Role | Phone | + +------+ + | Zoe Stephen | PCP | | + +------+ + Reason for Visit + + + | Reason | Comments | + + + | Discussion | | + + + Encounter Details +--------+ + + + + | Date | Type | Department | Care Team | Description | +--------+ + + + + | 07/12/ | Telephone | [place] | Koki Jha MD | Discussion | | 2015 | | Fertility | [address] | | | | | Consultants at [facility] | [place], [place] | | | | | [address] | [address] | | | | | Mailcode: CH10F | [phone] | | | | | [facility] | | | | | | and Mariah, | | | | | | Building | | | | | | [place], [place] | | | | | | [address] | | | | | | [phone] | | | +--------+ + + + [...]
--- OUTSIDE RECORDS SUMMARY | ~2019-08-22 | XMS | Encounter Summary ---
Demographics + + + | Address | [address] | | | [place] [address] | + + + | Home Phone | | + + + | Preferred Language | Unknown | + + + | Marital Status | | + + + | Zoroastrian Affiliation | Unknown | + + + | Race | White | + + + | Ethnic Group | Not or | + + + Author + + + | Author | [facility] | + + + | Organization | [facility] | + + + | Address | Unknown | + + + | Phone | Unavailable | + + + Support + + +---------+ + | Name | Relationship | Address | Phone | + + +---------+ + | Brittnee Wells | ECON | Unknown | | + + +---------+ + Care Team Providers + +------+ + | Care Sales Branch Manager Name | Role | Phone | + +------+ + | Zoe Stephen | PCP | | + +------+ + Reason for Visit + + + | Reason | Comments | + + + | Insomnia | | + + + Encounter Details +--------+ + + + + | Date | Type | Department | Care Team | Description | +--------+ + + + + | 06/28/ | Telephone | [facility] | Koki Jha MD | Insomnia | | 2016 | | Fertility | [address] | | | | | Consultants at [facility] | [place], [place] | | | | | [address] | [address] | | | | | Mailcode: [facility] | [phone] | | | | | [facility] | | | | | | and Healing, | | | | | | Building | | | | | | Floor [place], [place] | | | | | | [address] | | | | | | [phone] | | | +--------+ + + + [...]
--- OUTSIDE RECORDS SUMMARY | ~2019-08-22 | XMS | Encounter Summary ---
Demographics + + + | Address | [address] [place] [address] | | | [place] [address] | + + + | Home Phone | | + + + | Preferred Language | Unknown | + + + | Marital Status | | + + + | Episcopal Affiliation | Unknown | + + + | Race | White | + + + | Ethnic Group | Not or | + + + Author + + + | Author | [facility] | + + + | Organization | [facility] | + + + | Address | Unknown | + + + | Phone | Unavailable | + + + Support + + +---------+ + | Name | Relationship | Address | Phone | + + +---------+ + | Brittnee Wells | ECON | Unknown | | + + +---------+ + Care Team Providers + +------+ + | Care Oil Field Caser Name | Role | Phone | + +------+ + | Zoe Stephen | PCP | | + +------+ + Encounter Details +--------+ + + + + | Date | Type | Department | Care Team | Description | +--------+ + + + + | 07/04/ | [facility] | [place] | Koki Jha MD | RE: Documents to be | | 2016 | Encounter | Fertility | [address] | signed | | | | Consultants at [facility] | [facility] [place] | | | | | [address] | [address] | | | | | Mailcode: [facility] | [phone] | | | | | [facility] | | | | | | and Healing, | | | | | | | | | | | | Floor [place], [place] | | | | | | [address] | | | | | | [phone] | | | +--------+ + + + [...]
--- OUTSIDE RECORDS SUMMARY | ~2019-08-22 | XMS | Encounter Summary ---
Demographics + + + | Address | [address] | | | [place] [address] | + + + | Home Phone | | + + + | Preferred Language | Unknown | + + + | Marital Status | | + + + | Pentecostal Affiliation | Unknown | + + + | Race | White | + + + | Ethnic Group | Not or | + + + Author + + + | Author | [facility] | + + + | Organization | [facility] | + + + | Address | Unknown | + + + | Phone | Unavailable | + + + Support + + +---------+ + | Name | Relationship | Address | Phone | + + +---------+ + | Brittnee Wells | ECON | Unknown | | + + +---------+ + Care Team Providers + +------+ + | Care Floral Clerk Name | Role | Phone | [...] | [facility] | [address] [place], | | | | | Pav[address] | [place] [address] | | | | | [address] | [phone] | | | | | Physician's | | | | | | Pavilion | | | | | | Physician's Pavilion | | | | | | [place], [place] | | | | | | [address] | | | | | | [phone] | | | +--------+ + + + [...]
--- OUTSIDE RECORDS SUMMARY | ~2019-08-22 | XMS | Encounter Summary ---
Demographics + + + | Address | [address] | | | [place] [address] | + + + | Home Phone [...] Team Providers + +------+ + | Care Community Relations Director Name | Role | Phone | + +------+ + | Zoe Stephen | PCP | | + +------+ + Reason for Visit +--------+ + | Reason | Comments | +--------+ + | Other | Blood Order for TSH. | +--------+ + Other (Routine) +--------+--------+ + + + + | Status | Reason | Specialty | Diagnoses / | Referred By | Referred To | | | | | Procedures | Contact | Contact | +--------+--------+ + + + + | Closed | | Reproductive | | Abhijeet | Roya Endo | | | | Endocrinology | | MD Koki | Faculty [facility] | | | | /Infertility | | [address] | [address] | | | | | | Ave | Ave | | | | | | [place], [place] | Mailcode: | | | | | | [address] | [address] | | | | | | Phone: | for Health | | | | | | [phone] | and Healing, | | | | | | Fax: | Building 1, | | | | | | [phone] | 10th Floor | | | | | | | [place], [place] | | | | | | | [address] | | | | | | | Phone: | | | | | | | [phone] | | | | | | | Fax: | | | | | | | [phone] | +--------+--------+ + + + + Encounter Details +--------+ + + + + | Date | Type | Department | Care Team | Description | +--------+ + + + + | 07/12/ | Telephone-S | [place] | Draw, [facility] | Other (Blood Order | | 2015 | cheduled | Fertility | [address] | for TSH.) | | | | Consultants at [facility] | [place] [address] | | | | | [address] | | | | | | Mailcode: CH10F | | | | | | [facility] | | | | | | and Mariah, | | | | | | Building | | | | | | Floor [place], [place] | | | | | | [address] | | | | | | [phone] | | | +--------+ + + + [...]
--- OUTSIDE RECORDS SUMMARY | ~2019-08-22 | XMS | Encounter Summary ---
Demographics + + + | Address | [address] | | | [place] [address] | + + + | Home Phone [...] Providers + +------+ + | Care Sales Agent Name | Role | Phone | + +------+ + | Zoe Stephen | PCP | | + +------+ + Reason for Visit + + + | Reason | Comments | + + + | IVF Physician | | | Checklist | | + + + Encounter Details +--------+ + + + + | Date | Type | Department | Care Team | Description | +--------+ + + + + | 05/26/ | [facility]ati | [place] | Koki Jha MD | IVF Physician | | 2016 | on | Fertility | [address] | Checklist | | | | Consultants at [facility] | [place], [place] | | | | | [address] | [address] | | | | | Mailcode: CH10 | [phone] | | | | | [facility] | | | | | | and Mariah, | | | | | | Building | | | | | | Floor [place], [place] | | | | | | [address] | | | | | | [phone] | | | +--------+ + + + [...]
--- OUTSIDE RECORDS SUMMARY | ~2019-08-22 | XMS | Encounter Summary ---
Demographics + + + | Address | [address] | | | [place] [address] | + + + | Home Phone [...] + + + | Author | [facility] | + + + | Organization | [facility] | + + + | Address | Unknown | + + + | Phone | Unavailable | + + + Support + + +---------+ + | Name | Relationship | Address | Phone | + + +---------+ + | Brittnee Wells | ECON | Unknown | | + + +---------+ + Care Team Providers + +------+ + | Care Phototypesetting Equipment Monitor Name | Role | Phone | + [...] your | | | | Consultants at [facility] | [place], [place] | August 11 appt | | | | [address] | [address] | | | | | Mailcode: [id number] | [phone] | | | | | [facility] | | | | | | and Healing, | | | | | | Building | | | | | | Floor [place], [place] | | | | | | [address] | | | | | | [phone] | | | +--------+ + + + [...]
--- OUTSIDE RECORDS SUMMARY | ~2019-08-22 | XMS | Encounter Summary ---
Demographics + + + | Address | [address] | | | [place] [address] | + + + | Home Phone [...] Team Providers + +------+ + | Care Broomcorn Sorter Name | Role | Phone | + [...] | | | | | | at [address] Floor | | | | | | [address] | | | | | | [place], | | | | | | [place] [address] | | | | | | [phone] | | | +--------+------+ + + + [...] by | | | | | | [employer] | | | | | | [address], [facility],[place] | | | | | | [address] | | | | | | [phone][employer]. | | | | | | Devante [...] [facility] | [address] | [place], [place] | | | UNIV PTH - INTFC | | [address] | | + + + + + [...] PTH - INTFC | | | | [place] [address] | | | | | | [phone].[email or web address] [employer]ell[employer]. | | | | | | Devante [...] [facility] | [address] | [place], [place] | | | UNIV PTH - INTFC | | [address] | | + + + + + [...] | + + + + + | [facility] | [address] | [place] [id number] | | | SERVICES, CORE | [address] [...] | | | LABORATORY | | | [place] CITIZEN | | | SERVICES, | | | [...] the MDRD equation recommended by the | [facility] | | National Kidney Disease Education Program. [...] | + + + + + | [facility] | [address] | [place] [address] | | | GABE, [place] | PARK [...] 5-6 weeks | | | 850 - 72764 6-7 weeks | | | 4000 - 574422 7-12 weeks | | | 22218 - 564837 12-16 weeks | | | 19451 - 734757 16-29 | | | weeks 1400 - 29862 | | | 29-41 weeks 940 - 60032 | | | | | + + + + + + + + | Performing | Address | City/State/Zipcode | Phone Number | | Organization | | | | + + + + + | [facility] | [address] | [place] [address] | | | [place] [facility] | [address] | | | + + + + + documented in this encounter Visit Diagnoses + + | Diagnosis | + + | Gabriel's disease Chronic lymphocytic thyroiditis | + + documented in this encounter"
--- OUTSIDE RECORDS SUMMARY | ~2019-08-22 | XMS | Encounter Summary ---
Demographics + + + | Address | [address] | | | [place] [address] | + + + | Home Phone [...] Providers + +------+ + | Care Manager Banquet Name | Role | Phone | + +------+ + | Zoe Stephen | PCP | | + +------+ + Reason for Visit +--------+ + | Reason | Comments | +--------+ + | Menses | | +--------+ + Encounter Details +--------+ + + + + | Date | Type | Department | Care Team | Description | +--------+ + + + + | 04/26/ | Telephone | [place] | Koki Jha MD | [place]ann[place] | | 2016 | | Fertility | [address] | | | | | Consultants at [facility] | [place], [place] | | | | | [address] | [address] | | | | | Mailcode: [facility] | [phone] | | | | | [facility] | | | | | | and Healing, | | | | | | Building | | | | | | Floor [place], [place] | | | | | | [address] | | | | | | [phone] | | | +--------+ + + + [...] + | VITAMIN D, | Routin | 04/21/2016 | | Results for this | | 25-HYDROXY, SERUM | e | | | procedure are in the | | | | | | results section. | + +--------+ + + + documented in this encounter Results VITAMIN D, 25-HYDROXY, SERUM (04/21/2016) + + + + + + | Component | Value | Ref Range | Performed | Pathologist | | | | | At | Signature | + + + + + + | VITAMIN D | 19 (A)Comment: | 30 - 100 ng/mL | NON [facility] | | | 25 HYDROXY | Insufficiency 10-29 | | LAB | | + + + + + [...]
--- OUTSIDE RECORDS SUMMARY | ~2019-08-22 | XMS | Encounter Summary ---
Demographics + + + | Address | [address] | | | [place] [address] | + + + | Home Phone [...] Team Providers + +------+ + | Care High School Foreign Language Teacher Name | Role | Phone | + [...] | [facility] | [address] [place], | | | | | Pav[address] | [place] [address] | | | | | [address] | [phone] | | | | | Physician's | | | | | | Pavilion | | | | | | Physician's Pavilion | | | | | | [place], [place] | | | | | | [address] | | | | | | [phone] | | | +--------+ + + + [...]
--- OUTSIDE RECORDS SUMMARY | ~2019-08-22 | XMS | Encounter Summary ---
Demographics + + + | Address | [address] | | | [place] [address] | + + + | Home Phone | | + + + | Preferred Language | Unknown | + + + | Marital Status | | + + + | Shinto Affiliation | Unknown | + + + [...] Team Providers + +------+ + | Care Strategic Planning Director Name | Role | Phone | + +------+ + | Zoe Stephen | PCP | | + +------+ + Reason for Visit + + + | Reason | Comments | + + + | Ultrasound | | + + + Other (Routine) [...] Ave | | | | | | [place], [place] | Mailcode: | | | | | | [address] | [facility] Center | | | | | | Phone: | for Health | | | | | | [phone] | and Healing, | | | | | | Fax: | Building 1, | | | | | | [phone] | 10th Floor | | | | | | | [place], [place] | | | | | | | [address] | | | | | | | Phone: | | | | | | | [phone] | | | | | | | Fax: | | | | | | | [phone] | +--------+--------+ + + + + Encounter Details +--------+ + + + + | Date | Type | Department | Care Team | Description | +--------+ + + + + | 07/04/ | Procedure | University | John Esipnoza MD | Ultrasound | | 2016 | | Fertility | [address] | | | | | Consultants at [facility] | [place], [place] | | | | | [address] | [address] | | | | | Mailcode: CH10F | [phone] | | | | | [facility] | | | | | | and Healing, | | | | | | Building | | | | | | [place], [place] | | | | | | [address] | | | | | | [phone] | | | +--------+ + + + [...] documented as of this encounter Progress Notes TevinCourtney doveJEFF - 07/04/2016 10:34 AM PDT ENDOCRINE MANAGEMENT PROGRESS NOTE 07/04/2016 Day of stimulation: ATTAIN US/E2; CD6 of Lupron Protocol: 1 HMG / 100 FSH w/Ovidrel Trigger - Abhijeet/hrfE2 and U/S/aas Comments: Indication: INF Approach: transvaginal Systems checklist: negative for uterine polyps, myomas, fluid in cavity, ovarian mass and f luid in cul-de-sac. Estradiol level: Lab Results Component Value Date ESTRADIOL 227 07/04/2016 Progesterone level: Lab Results Component Value Date PROG 8.9 11/16/2015 FOLLICLE EXAMINATION / ENDOMETRIAL THICKNESS Endometrial thickness: 11.6mm Grade: 3 LARGEST FOLLICLES (Measured in Millimeters) RIGHT OVARY VOLUME: 85x93cy LEFT OVARY VOLUME: 71r43gg 1 8x11 9.5 mean 1 9x10 9.5 mean 2 8x10 9 mean 2 7x7 7 mean 3 8x8 8 mean 3 10x10 10 mean 4 8x10 9 mean 4 10x11 10.5 mean 5 8x10 9 mean 5 8x12 10 mean 6 8x8 8 mean 6 8x12 10 mean 7 8x10 9 mean 7 9x12 10.5 mean 8 mean 8 mean 9 mean 9 mean 10 mean 10 mean Additional Follicles: Additional Follicles: Total Follicles: 10 Total Follicles: 9 Interpretation: follicles devping Plan: same dose, back 3 days I, John Espinoza MD, personally performed all components of this scan. documented in this enco unter Plan of Treatment Not on filedocumented as of this encounter Visit Diagnoses + + | Diagnosis | + + | Encounter for assisted reproductive fertility procedure cycle - Primary | + + documented in this encounter"
--- OUTSIDE RECORDS SUMMARY | ~2019-08-22 | XMS | Encounter Summary ---
Demographics + + + | Address | [address] | | | [place] [address] | + + + | Home Phone [...] Team Providers + +------+ + | Care Belt Brander Name | Role | Phone | + +------+ + | Zoe Stephen | PCP | | + +------+ + Encounter Details +--------+ + + + + | Date | Type | Department | Care Team | Description | +--------+ + + + + | 07/05/ | [facility] | [place] | Koki Jha MD | RE: Dmitry and | | 2016 | Encounter | Fertility | [address] | thyroid levels | | | | Consultants at [facility] | [facility] [place] | | | | | [address] | [address] | | | | | Mailcode: [facility] | [phone] | | | | | [facility] | | | | | | and Healing, | | | | | | | | | | | | Floor [facility] [place] | | | | | | [address] | | | | | | [phone] | | | +--------+ + + + [...]
--- OUTSIDE RECORDS SUMMARY | ~2019-08-22 | XMS | Encounter Summary ---
Demographics + + + | Address | [address] | | | [place] [address] | + + + | Home Phone [...] Team Providers + +------+ + | Care Senior Office Assistant Name | Role | Phone | [...] [address] | | | | | [facility] | [address] [place], | | | | | Pav[address] | [place] [address] | | | | | [address] | [phone] | | | | | Physician's | | | | | | Pavilion | | | | | | Physician's Pavilion | | | | | | [place], [place] | | | | | | [address] | | | | | | [phone] | | | +--------+ + + + [...]
--- OUTSIDE RECORDS SUMMARY | ~2019-08-22 | XMS | Encounter Summary ---
Demographics + + + | Address | [address] | | | [place] [address] | + + + | Home Phone [...] Team Providers + +------+ + | Care Tool Clerk Name | Role | Phone | [...] | | /Infertility | | [address] | [address] | | | | | | Ave | Ave | | | | | | [place], [place] | Mailcode: | | | | | | [address] | [facility] | | | | | | Phone: | for Health | | | | | | [phone] | and Healing, | | | | | | Fax: | Building 1, | | | | | | [phone] | 10th Floor | | | | | | | [facility] [place] | | | | | | | [address] | | | | | | | Phone: | | | | | | | [phone] | | | | | | | Fax: | | | | | | | [phone] | +--------+--------+ + + + + Encounter Details +--------+ + + + + | Date | Type | Department | Care Team | Description | +--------+ + + + + | 07/14/ | Procedure | University | Koki Jha MD | Canceled (Provider | | 2016 | | Fertility | [address] | Request) | | | | Consultants at [facility] | [place], [place] | | | | | [address] | [address] | | | | | Mailcode: [facility] | [phone] | | | | | [facility] | | | | | | and Healing, | | | | | | | | | | | | Floor [facility] [place] | | | | | | [address] | | | | | | [phone] | | | +--------+ + + + [...] Closed at the request of Nixon Valenciaice Senior Mechanical Project Engineer, [facility] . oki Jha MD - [...]
--- OUTSIDE RECORDS SUMMARY | ~2019-08-22 | XMS | Encounter Summary ---
Demographics + + + | Address | [address] | | | [place] [address] | + + + | Home Phone | | + + + | Preferred Language | Unknown | + + + | Marital Status | | + + + | Orthodoxy Affiliation | Unknown | + + + | Race | White | + + + | Ethnic Group | Not or | + + + Author + + + | Author | [facility] | + + + | Organization | [facility] | + + + | Address | Unknown | + + + | Phone | Unavailable | + + + Support + + +---------+ + | Name | Relationship | Address | Phone | + + +---------+ + | Brittnee Wells | ECON | Unknown | | + + +---------+ + Care Team Providers + +------+ + | Care Pigment Mixer Name | Role | Phone | + +------+ + | Zoe Stephen | PCP | | + +------+ + Reason for Visit + + + | Reason | Comments | + + + | Medical Records | | | Release | | + + + Encounter Details +--------+ + + + + | Date | Type | Department | Care Team | Description | +--------+ + + + + | 08/23/ | Documentati | University | Koki Jha MD | Medical Records | | 2016 | on | Fertility | [address] | Release | | | | Consultants at [facility] | [place], [place] | | | | | [address] | [address] | | | | | Mailcode: CH10 | [phone] | | | | | [facility] | | | | | | and Healing, | | | | | | Building 1, | | | | | | Floor [place], [place] | | | | | | [address] | | | | | | [phone] | | | +--------+ + + + [...]
--- OUTSIDE RECORDS SUMMARY | ~2019-08-22 | XMS | Encounter Summary ---
Demographics + + + | Address | [address] | | | [place] [address] | + + + | Home Phone | | + + + | Preferred Language | Unknown | + + + | Marital Status | | + + + | Latter-Day Affiliation | Unknown | + + + | Race | White | + + + | Ethnic Group | Not or | + + + Author + + + | Author | [facility] | + + + | Organization | [facility] | + + + | Address | Unknown | + + + | Phone | Unavailable | + + + Support + + +---------+ + | Name | Relationship | Address | Phone | + + +---------+ + | Brittnee Wells | ECON | Unknown | | + + +---------+ + Care Team Providers + +------+ + | Care Transport Company Manager Name | Role | Phone | + +------+ + | Zoe Stephen | PCP | | + +------+ + Encounter Details +--------+ + + + + | Date | Type | Department | Care Team | Description | +--------+ + + + + | 04/25/ | Documentati | [place] | Koki Jha MD | | | 2016 | on | Fertility | [address] | | | | | Consultants at [facility] | [place], [place] | | | | | [address] | [address] | | | | | Mailcode: [facility] | [phone] | | | | | [facility] | | | | | | and Healing, | | | | | | | | | | | | Floor [facility] [place] | | | | | | [address] | | | | | | [phone] | | | +--------+ + + + [...]
--- OUTSIDE RECORDS SUMMARY | ~2019-08-22 | XMS | Encounter Summary ---
Demographics + + + | Address | [address] | | | [place] [address] | + + + | Home Phone [...] Providers + +------+ + | Care Director Of Field Sales Name | Role | Phone | + [...] + + + + | 07/04/ | Telephone | [place] | Koki Jha MD | Lab findings, | | 2016 | | Fertility | [address] | teaching, guidance, | | | | Consultants at [facility] | [place], [place] | and counseling | | | | [address] | [address] | | | | | Mailcode: CH10F | [phone] | | | | | [facility] | | | | | | and Healing, | | | | | | Building | | | | | | [place], [place] | | | | | | [address] | | | | | | [phone] | | | +--------+ + + + [...] | ESTRADIOL, SERUM - | Routin | 07/07/2016 | Encounter for | Results for this | | ANDROLOGY LAB | e | | assisted | procedure are in the | | | | | reproductive | results section. | | | | | fertility procedure | | | | | | cycle | | + +--------+ + + + documented in this encounter Results ESTRADIOL, SERUM - ANDROLOGY LAB (07/07/2016) + +-------+ + + + | Component | Value | Ref Range | Performed | Pathologist | | | | | At | Signature | + +-------+ + + + | ESTRADIOL, | 750 | pg/ml | [facility] | | | [...] + + | [facility] | [address], | [place] [address] | | | | Tenth Floor | | | + + + + + documented in this encounter Visit Diagnoses + + | Diagnosis | + + | Encounter for assisted reproductive fertility procedure cycle - Primary | + + documented in this encounter"
--- OUTSIDE RECORDS SUMMARY | ~2019-08-22 | XMS | Encounter Summary ---
Demographics + + + | Address | [address] | | | [place] [address] | + + + | Home Phone [...] Team Providers + +------+ + | Care Leisure Travel Agent Name | Role | Phone | [...] | | | Endocrinology | | MD oKki | Faculty Chh1 | | | | /Infertility | | [address] | [address] | | | | | | Ave | Ave | | | | | | [place], [place] | Mailcode: | | | | | | [address] | [facility] | | | | | | Phone: | for Health | | | | | | [phone] | and Healing, | | | | | | Fax: | Building 1, | | | | | | [phone] | 10th Floor | | | | | | | [place], [place] | | | | | | | [address] | | | | | | | Phone: | | | | | | | [phone] | | | | | | | Fax: | | | | | | | [phone] | +--------+--------+ + + + + Encounter Details +--------+ + + + + | Date | Type | Department | Care Team | Description | +--------+ + + + + | 07/04/ | Procedure | University | John Espinoza MD | Ultrasound | | 2016 | | Fertility | [address] | | | | | Consultants at [facility] | [place], [place] | | | | | [address] | [address] | | | | | Mailcode: CH10F | [phone] | | | | | [facility] | | | | | | and Healing, | | | | | | Building | | | | | | [place], [place] | | | | | | [address] | | | | | | [phone] | | | +--------+ + + + [...] FOLLICLES (Measured in Millimeters) RIGHT OVARY VOLUME: [id number] LEFT OVARY VOLUME: [id number] 1 8x11 9.5 mean 1 9x10 9.5 [...]
--- OUTSIDE RECORDS SUMMARY | ~2019-08-22 | XMS | Encounter Summary ---
Demographics + + + | Address | [address] | | | [place] [address] | + + + | Home Phone [...] Team Providers + +------+ + | Care Ice Cream Shop Associate Name | Role | Phone | + [...] Ave | | | | | | [place], [place] | Mailcode: | | | | | | [address] | [address] | | | | | | Phone: | for Health | | | | | | [phone] | and Healing, | | | | | | Fax: | Building 1, | | | | | | [phone] | 10th Floor | | | | | | | [place], [place] | | | | | | | [address] | | | | | | | Phone: | | | | | | | [phone] | | | | | | | Fax: | | | | | | | [phone] | +--------+--------+ + + + + Encounter Details +--------+ + + + + | Date | Type | Department | Care Team | Description | +--------+ + + + + | 07/17/ | Procedure | University | Aarti Christian MD | Embryo Transfer (2x | | 2016 | | Fertility | [address] | D6) | | | | Consultants at [facility] | Avani Zhang [place], | | | | | [address] | [place] [address] | | | | | Mailcode: CH10F | [phone] | | | | | [facility] | | | | | | and Mariah, | | | | | | [facility] | | | | | | Floor [place], [place] | | | | | | [address] | | | | | | [phone] | | | +--------+ + + + [...] Catheter checked by embryologist; retained embryo: no. High School Science Tutor: TADEO Patient identity was confirmed. Melo Aguilar [...] | + +--------+ + + + | HI TRANSFER OF | Routin | 07/17/2016 | [...]
--- OUTSIDE RECORDS SUMMARY | ~2019-08-22 | XMS | Encounter Summary ---
Demographics + + + | Address | [address] | | | [place] [address] | + + + | Home Phone | | + + + | Preferred Language | Unknown | + + + | Marital Status | | + + + | Hindu Affiliation | Unknown | + + + [...] Team Providers + +------+ + | Care Telephone Interviewer Name | Role | Phone | + [...] | +--------+ + + + + | 05/01/ | MyChart | University | Koki Jha MD | RE:Financial | | 2016 | Encounter | Fertility | [address] | information for your | | | | Consultants at [facility] | [place], [place] | 05-03-2016 appt | | | | [address] | [address] | | | | | Mailcode: CHET | [phone] | | | | | [facility] | | | | | | and Healing, | | | | | | Building | | | | | | Floor [facility] [place] | | | | | | [address] | | | | | | [phone] | | | +--------+ + + + [...]
--- OUTSIDE RECORDS SUMMARY | ~2019-08-22 | XMS | Encounter Summary ---
Demographics + + + | Address | [address] | | | [place] [address] | + + + | Home Phone [...] Team Providers + +------+ + | Care Tabber Name | Role | Phone | + +------+ + | No Pcp Per Patient | PCP | Unavailable | + +------+ + Encounter Details +--------+------+ + + + | Date | Type | Department | Care Team | Description | +--------+------+ + + + | 11/16/ | Lab | Laboratory at [facility] | | Hypothyroidism, | | 2016 | | [address] | | unspecified | | | | [place], [place] | | hypothyroidism type; | | | | [address] | | Irregular menstrual | | | | [phone] | | cycle; Encounter | | | [...] | | [facility] | | | [address] [facility] [address] | | | [place] [address] | | + + + + + [...] [facility] | [address] | [place] [address] | | | SERVICES, | [address] [...] | + + + + + | [facility] - | [address] | [place] [address] | | | [place] | | | | + + + [...] | + + + + + | [facility] | [address] | [place] [address] | | | SERVICES, SPECIAL | PARK [...] | | | this test in the [facility] | | | | | | Laboratory Test | | | | | | Directory ([email or web address]). | | | | + + + [...] | | | this test in the [facility] | | | | | | Laboratory Test | | | | | | Directory ([email or web address]). | | | | | | Test developed and | | | | | | characteristics | | | | | | determined by [facility] | | | | | | Laboratories. See | | | | | | Compliance Statement B: | | | | | | [email or web address] | | | | + + + [...] | | | this test in the [facility] | | | | | | Laboratory Test | | | | | | Directory ([email or web address]). | | | | | | Test developed and | | | | | | characteristics | | | | | | determined by [facility] | | | | | | Laboratories. See | | | | | | Compliance Statement B: | | | | | | [email or web address] | | | | | | by [address] | | | | | | Shankar Fortune, JD [facility] | | | | | | [address] | | | | | | [phone].[employer]. | | | | | | [facility], Devante Barton, | | | | [...] [facility] | [address] | [place], [place] | | | UNIV PTH - INTFC | | [address] | | + + + + + [...] + | [facility] - | [address] | [place] [address] | | | [place] | | | [...] + | [facility] - | [address] | [place] [address] | | | [place] | | | [...] | | | | | | Directory ([email or web address]). | | | | | | Test developed and | | | | | | characteristics | | | | | | determined by [facility] | | | | | | Laboratories. See | | | | | | Compliance Statement B: | | | | | | [email or web address] | | | | | | by [address] | | | | | | Shankar Fortune, JD [facility] | | | | | | [address] | | | | | | [phone].[employer]. | | | | | | [facility], Devante Barton, | | | | [...] [facility] | [address] | [place], [place] | | | UNIV PTH - INTFC | | [address] | | + + + + + [...] | | Prolactin levels are | | [facility] | | | | elevated above | | [place] | | | | non- levels: | [...] + | [facility] - | [address] | [place] [address] | | | [place] | | | [...] | + + + + + | [facility] | [address] | [place] [address] | | | MERLIN BERNAL | [address] | | | + + + + + documented in this encounter Visit Diagnoses + + | Diagnosis | + + | Hypothyroidism, unspecified hypothyroidism type | + + | Irregular menstrual cycle | + + | Encounter for preconception consultation | + + documented in this encounter"
--- OUTSIDE RECORDS SUMMARY | ~2019-08-22 | XMS | Encounter Summary ---
Demographics + + + | Address | [address] | | | [place] [address] | + + + | Home Phone | | + + + | Preferred Language | Unknown | + + + | Marital Status | | + + + | Zoroastrianism Affiliation | Unknown | + + + [...] Team Providers + +------+ + | Care Home Health Clinical Liaison Name | Role | Phone | + [...] + + | 07/27/ | Telephone | [place] | Koki Jha MD | Lab findings, | | 2016 | | Fertility | [address] | teaching, guidance, | | | | Consultants at [facility] | [place], [place] | and counseling | | | | [address] | [address] | | | | | Mailcode: CH10F | [phone] | | | | | [facility] | | | | | | and Healing, | | | | | | Building | | | | | | [place], [place] | | | | | | [address] | | | | | | [phone] | | | +--------+ + + + [...]
--- OUTSIDE RECORDS SUMMARY | ~2019-08-22 | XMS | Encounter Summary ---
Demographics + + + | Address | [address] | | | [place] [address] | + + + | Home Phone | | + + + | Preferred Language | Unknown | + + + | Marital Status | | + + + | Restorationism Affiliation | Unknown | + + + | Race | White | + + + | Ethnic Group | Not or | + + + Author + + + | Author | [facility] | + + + | Organization | [facility] | + + + | Address | Unknown | + + + | Phone | Unavailable | + + + Support + + +---------+ + | Name | Relationship | Address | Phone | + + +---------+ + | Brittnee Wells | ECON | Unknown | | + + +---------+ + Care Team Providers + +------+ + | Care Lard Renderer Name | Role | Phone | + [...] Ave | | | | | | [place], [place] | Mailcode: | | | | | | [address] | [facility] | | | | | | Phone: | for Health | | | | | | [phone] | and Healing, | | | | | | Fax: | Building 1, | | | | | | [phone] | 10th Floor | | | | | | | [place], [place] | | | | | | | [address] | | | | | | | Phone: | | | | | | | [phone] | | | | | | | Fax: | | | | | | | [phone] | +--------+--------+ + + + + Encounter Details +--------+ + + + + | Date | Type | Department | Care Team | Description | +--------+ + + + + | 07/27/ | Telephone-S | [place] | [facility] | | | 2016 | chesayda | Fertility | [address] [place] | | | | | Consultants at [facility] | [place] [address] | | | | | [address] | | | | | | Mailcode: CH10F | | | | | | [facility] | | | | | | and Healing, | | | | | | Building | | | | | | [place], [place] | | | | | | [address] | | | | | | [phone] | | | +--------+ + + + [...]
--- OUTSIDE RECORDS SUMMARY | ~2019-08-22 | XMS | Encounter Summary ---
Demographics + + + | Address | [address] | | | [place] [address] | + + + | Home Phone [...] Team Providers + +------+ + | Care Motion Picture Printer Name | Role | Phone | + +------+ + | Zoe Stephen | PCP | | + +------+ + Encounter Details +--------+ + + + + | Date | Type | Department | Care Team | Description | +--------+ + + + + | 06/20/ | [place] | [facility] Pantoja | Paul Wheatley MD | update | | 2015 | Encounter | [facility] | [address] | | | | | [facility] | [place], | | | | | Pavilion [address] | [place] [address] | | | | | [address] | [phone] | | | | | Physician's | | | | | | Pavilion | | | | | | Physician's Pavilion | | | | | | [place], [place] | | | | | | [address] | | | | | | [phone] | | | +--------+ + + + [...]
--- OUTSIDE RECORDS SUMMARY | ~2019-08-22 | XMS | Encounter Summary ---
Demographics + + + | Address | [address] | | | [place] [address] | + + + | Home Phone [...] Team Providers + +------+ + | Care Salon Leader Name | Role | Phone | + [...] | | | | | assessment | [address] | [address] | | | | | Procedures | [place] | [address] | | | | | CONSULT TO | [place], [place] | Avani Zhang | | | | | ADULT | [address] | [place], [place] | | | | | MEDICAL | Phone: | [address] | | | | | NUTRITIONAL | [phone] | | | | | | THERAPY | Fax: | | | | | | | [phone] | | +--------+--------+ + + + + [...] | | | | CONSULT TO | [facility] [place] | Physician's | | | | | ENDOCRINOLOG | [address] | Pavilion | | | | | Y | Phone: | Physician's | | | | | | [phone] | Pavilion | | | | | | Fax: | [place], [place] | | | | | | [phone] | [address] | | | | | | | Phone: | | | | | | | [phone] | | | | | | | Fax: | | | | | | | [phone] | +--------+--------+ + + + + Reason [...] + + | 11/18/ | Telephone | [place] | Koki Jha MD | Lab findings, | | 2016 | | Fertility | [address] | teaching, guidance, | | | | Consultants at [facility] | [place], [place] | and counseling | | | | [address] | [address] | | | | | Mailcode: CH10F | [phone] | | | | | [facility] | | | | | | and Healing, | | | | | | | | | | | | Floor [facility] [place] | | | | | | [address] | | | | | | [phone] | | | +--------+ + + + [...]
--- OUTSIDE RECORDS SUMMARY | ~2019-08-22 | XMS | Encounter Summary ---
Demographics + + + | Address | [address] | | | [place] [address] | + + + | Home Phone | | + + + | Preferred Language | Unknown | + + + | Marital Status | | + + + | Baptist Affiliation | Unknown | + + + | Race | White | + + + | Ethnic Group | Not or | + + + Author + + + | Author | [facility] | + + + | Organization | [facility] | + + + | Address | Unknown | + + + | Phone | Unavailable | + + + Support + + +---------+ + | Name | Relationship | Address | Phone | + + +---------+ + | Brittnee Wells | ECON | Unknown | | + + +---------+ + Care Team Providers + +------+ + | Care Animal Attendants And Trainers Name | Role | Phone | + [...] + + | 06/05/ | Telephone | [place] | Koki Jha MD | Care Coordination | | 2016 | | Fertility | [address] | | | | | Consultants at [facility] | [place], [place] | | | | | [address] | [address] | | | | | Mailcode: [facility] | [phone] | | | | | [facility] | | | | | | and Healing, | | | | | | Building , | | | | | | Floor [place], [place] | | | | | | [address] | | | | | | [phone] | | | +--------+ + + + [...] LAB | [address], | [place] [address] | | | | Tenth Floor | [...] + + + | [facility] | [address], | [place] [address] | | | | Tenth Floor | [...] [facility] | [address] | [place] [address] | | | GABE, CORE | PARK [...]
--- OUTSIDE RECORDS SUMMARY | ~2019-08-22 | XMS | Encounter Summary ---
Demographics + + + | Address | [address] | | | [place] [address] | + + + | Home Phone | | + + + | Preferred Language | Unknown | + + + | Marital Status | | + + + | Jehovah'S Witness Affiliation | Unknown | + + + [...] Team Providers + +------+ + | Care Credit Reference Clerk Name | Role | Phone | [...] Exam | | | | Consultants at [facility] | [place], [place] | | | | | [address] | [address] | | | | | Mailcode: [facility] | [phone] | | | | | [facility] | | | | | | and Healing, | | | | | | Building | | | | | | Floor [place], [place] | | | | | | [address] | | | | | | [phone] | | | +--------+ + + + [...] LAB | [address], | [place] [address] | | | | Tenth Floor | [...] | + + + + + | [facility] | [address] | [place] [address] | | | | Tenth Floor | | | + + + + + documented in this encounter Visit Diagnoses + + | Diagnosis | + + | Encounter for assisted reproductive fertility procedure cycle - Primary | + + documented in this encounter"
--- OUTSIDE RECORDS SUMMARY | ~2019-08-22 | XMS | Encounter Summary ---
Demographics + + + | Address | [address] | | | [place] [address] | + + + | Home Phone | | + + + | Preferred Language | Unknown | + + + | Marital Status | | + + + | Denominational Affiliation | Unknown | + + + | Race | White | + + + | Ethnic Group | Not or | + + + Author + + + | Author | [facility] | + + + | Organization | [facility] | + + + | Address | Unknown | + + + | Phone | Unavailable | + + + Support + + +---------+ + | Name | Relationship | Address | Phone | + + +---------+ + | Brittnee Wells | ECON | Unknown | | + + +---------+ + Care Team Providers + +------+ + | Care Evs Attendant Name | Role | Phone | + +------+ + | Zoe Stephen | PCP | | + +------+ + Encounter Details +--------+------+ + + + | Date | Type | Department | Care Team | Description | +--------+------+ + + + | 05/03/ | Lab | Laboratory at [facility] | | Gabriel's disease | | 2015 | | [address] | | | | | | [place], [place] | | | | | | [address] | | | | | | [phone] | | | +--------+------+ + + + [...] | + + + + + | [facility] | [address] | [place] [address] | | | SERVICES, CORE | [address] | | | + + + + + documented in this encounter Visit Diagnoses + + | Diagnosis | + + | Gabriel's disease Chronic lymphocytic thyroiditis | + + documented in this encounter"
--- OUTSIDE RECORDS SUMMARY | ~2019-08-22 | XMS | Encounter Summary ---
Demographics + + + | Address | [address] | | | [place] [address] | + + + | Home Phone [...] Team Providers + +------+ + | Care Army Helicopter Pilot Name | Role | Phone | + [...] Endocrinology | | MD Koki | Faculty [facility] | | | | /Infertility | | [address] | [address] | | | | | | Ave | Ave | | | | | | [place], [place] | Mailcode: | | | | | | [address] | [address] | | | | | | Phone: | for Health | | | | | | [phone] | and Healing, | | | | | | Fax: | Building 1, | | | | | | [phone] | 10th Floor | | | | | | | [place], [place] | | | | | | | [address] | | | | | | | Phone: | | | | | | | [phone] | | | | | | | Fax: | | | | | | | [phone] | +--------+--------+ + + + + Encounter Details +--------+ + + + + | Date | Type | Department | Care Team | Description | +--------+ + + + + | 07/02/ | Procedure | University | Coleman Emery MD | Ultrasound Follicle | | 2016 | | Fertility | [address] | Exam | | | | Consultants at [facility] | [place], [place] | | | | | [address] | [address] | | | | | Mailcode: CH10 | [phone] | | | | | [facility] | | | | | | and Healing, | | | | | | Building 1, | | | | | | Floor [place], [place] | | | | | | [address] | | | | | | [phone] | | | +--------+ + + + [...] documented as of this encounter Progress Notes Chelsea Dougherty MA - 07/02/2016 7:29 AM PDTFormatting of this note might be different fr om the original. ENDOCRINE MANAGEMENT PROGRESS NOTE 07/02/2016 Day of stimulation: ATTAIN US/E2; CD4 of Lupron Protocol: 1 HMG / 100 FSH w/Ovidrel Trigger - Abhijeet/hrf Comments: Indication: inf Approach: transvaginal Systems checklist: negative for uterine polyps, myomas, fluid in cavity, ovarian mass and f luid in cul-de-sac. Estradiol level: Lab Results Component Value Date ESTRADIOL 138 07/02/2016 Progesterone level: Lab Results Component Value Date PROG 8.9 11/16/2015 FOLLICLE EXAMINATION / ENDOMETRIAL THICKNESS Endometrial thickness: 7.7mm Grade: 3 LARGEST FOLLICLES (Measured in Millimeters) RIGHT OVARY VOLUME: LEFT OVARY VOLUME: 1 8 mean 1 9 mean 2 7 mean 2 9 mean 3 mean 3 8 mean 4 mean 4 mean 5 mean 5 mean 6 mean 6 mean 7 mean 7 mean 8 mean 8 mean 9 mean 9 mean 10 mean 10 mean Additional Follicles: Additional Follicles: Total Follicles: 10 Total Follicles: 11 Interpretation: early in stim Plan: cont same RTC 2d I, Coleman Emery MD, performed all aspects of this ultrasound. Patient is here today for a blood draw for Estradiol. Blood draw done per clinic physician's order. [...] | ESTRADIOL, SERUM - | Routin | 07/04/2016 | Encounter for | Results for this | | ANDROLOGY LAB | e | | assisted | procedure are in the | | | | | reproductive | results section. | | | | | fertility procedure | | | | | | cycle | | + +--------+ + + + | [employer] COLLECTION | Routin | 07/02/2016 | Encounter for | | | VENOUS | e | 12:11 PM | assisted | | | BLOOD,VENIPUNCTURE | | PDT | reproductive | | | | | | fertility procedure | | | | | | cycle | | + +--------+ + + + documented in this encounter Results ESTRADIOL, SERUM - ANDROLOGY LAB (07/04/2016) + +-------+ + + + | Component | Value | Ref Range | Performed | Pathologist | | | | | At | Signature | + +-------+ + + + | ESTRADIOL, | 227 | pg/ml | [facility] | | | [...] [facility] | [address], | [place] [address] | | | | Tenth Floor | | | + + + + + documented in this encounter Visit Diagnoses + + | Diagnosis | + + | Encounter for assisted reproductive fertility procedure cycle - Primary | + + documented in this encounter"
--- OUTSIDE RECORDS SUMMARY | ~2019-08-22 | XMS | Encounter Summary ---
Demographics + + + | Address | [address] | | | [place] [address] | + + + | Home Phone [...] Team Providers + +------+ + | Care Ship Fitter Name | Role | Phone | + [...] | | | | CONSULT TO | [place], [place] | Physician's | | | | | ENDOCRINOLOG | [address] | Pavilion | | | | | Y | Phone: | Physician's | | | | | | [phone] | Pavilion | | | | | | Fax: | [place], [place] | | | | | | [phone] | [address] | | | | | | | Phone: | | | | | | | [phone] | | | | | | | Fax: | | | | | | | [phone] | +--------+--------+ + + + + Encounter [...] | [facility] | [facility]ov[facility] [place], | | | | | Pavilion [address] | [place] [address] | | | | | [address] | [phone] | | | | | Physician's | | | | | | Pavilion | | | | | | [facility] | | | | | | [place], [place] | | | | | | [address] | | | | | | [phone] | | | +--------+---------+ + + + [...] Endocrine Clinic Referring Provider Koki Jha MD [address] [place] [address] Reason for visit: Hypothyroid HPI 30 yo [...] 24 is incompatible with a healthy . [place] or desiccated thyroid hormone is impure and [...] by | | | | | | [employer],500 | | | | | | Shankar Fortune, [facility] | | | | | | [address] | | | | | | [phone].Artaiclab. | | | | | | maik, [...] [facility] | [address] | [place], [place] | | | UNIV PTH - [facility] | | [address] | | + + + + + [...] PTH - INTFC | | | | [place] [address] | | | | | | [phone].[email or web address]. | | | | | | Devante [...] [facility] | [address] | [place], [place] | | | UN[facility] P[facility] | | [address] | | + + + + + [...] | + + + + + | [facility] | [address] | [place] [address] | | | SERVICES, CORE | GE[facility] [...] | | | LABORATORY | | | IRISH | | | SERVICES, | | | [...] [facility] | [address] | [place] [address] | | | SERVICES, CORE | PARK [...] 5-6 weeks | | | 850 - 25942 6-7 weeks | | | 4000 - 109468 7-12 weeks | | | 56072 - 445870 12-16 weeks | | | 48169 - 743961 16-29 | | | weeks 1400 - 01474 | | | 29-41 weeks 940 - 06018 | | | | | + + + + + + + + | Performing | Address | City/State/Zipcode | Phone Number | | Organization | | | | + + + + + | [facility] | [address] | [place] [address] | | | SERVICES, CORE | [address] | | | + + + + + documented in this encounter Visit Diagnoses + + | Diagnosis | + + | 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
--- OUTSIDE RECORDS SUMMARY | ~2019-08-22 | XMS | Encounter Summary ---
Demographics + + + | Address | [address] | | | [place] [address] | + + + | Home Phone [...] + + + | Author | [facility] | + + + | Organization | [facility] | + + + | Address | Unknown | + + + | Phone | Unavailable | + + + Support + + +---------+ + | Name | Relationship | Address | Phone | + + +---------+ + | Brittnee Wells | ECON | Unknown | | + + +---------+ + Care Team Providers + +------+ + | Care Vp Cardiovascular Name | Role | Phone | + +------+ + | Zoe Stephen | PCP | | + +------+ + Encounter Details +--------+ + + + + | Date | Type | Department | Care Team | Description | +--------+ + + + + | 11/30/ | [facility] | [facility] | Koki Jha MD | Sperm specimen | | 2016 | Encounter | Fertility | [address] | | | | | Consultants at [facility] | [place], [place] | | | | | [address] | [address] | | | | | Mailcode: [facility] | [phone] | | | | | [facility] | | | | | | and Healing, | | | | | | | | | | | | Floor [facility] [place] | | | | | | [address] | | | | | | [phone] | | | +--------+ + + + [...]
--- OUTSIDE RECORDS SUMMARY | ~2019-08-22 | XMS | Encounter Summary ---
Demographics + + + | Address | [address] | | | [place] [address] | + + + | Home Phone | | + + + | Preferred Language | Unknown | + + + | Marital Status | | + + + | Jain Affiliation | Unknown | + + + | Race | White | + + + | Ethnic Group | Not or | + + + Author + + + | Author | [facility] | + + + | Organization | [facility] | + + + | Address | Unknown | + + + | Phone | Unavailable | + + + Support + + +---------+ + | Name | Relationship | Address | Phone | + + +---------+ + | Brittnee Wells | ECON | Unknown | | + + +---------+ + Care Team Providers + +------+ + | Care Zoo Caretaker Name | Role | Phone | + [...] | MD Koki | Faculty [facility] | | | | /Infertility | | [address] | [address] | | | | | | Ave | Ave | | | | | | [place], [place] | Mailcode: | | | | | | [address] | [address] | | | | | | Phone: | for Health | | | | | | [phone] | and Healing, | | | | | | Fax: | Building 1, | | | | | | [phone] | 10th Floor | | | | | | | [place], [place] | | | | | | | [address] | | | | | | | Phone: | | | | | | | [phone] | | | | | | | Fax: | | | | | | | [phone] | +--------+--------+ + + + + Encounter Details +--------+ + + + + | Date | Type | Department | Care Team | Description | +--------+ + + + + | 07/12/ | Telephone-S | [place] | Draw, [facility] | Other (Blood Order | | 2015 | cheduled | Fertility | [address] | for TSH.) | | | | Consultants at [facility] | [place] [address] | | | | | [address] | | | | | | Mailcode: CH10F | | | | | | [facility] | | | | | | and [address], | | | | | | Building | | | | | | Floor [place], [place] | | | | | | [address] | | | | | | [phone] | | | +--------+ + + + [...]
--- OUTSIDE RECORDS SUMMARY | ~2019-08-22 | XMS | Clinical Summary ---
Demographics + + + | Address | [address] | | | [place] [address] | + + + | Home Phone | | + + + | Preferred Language | Unknown | + + + | Marital Status | | + + + | Temple Affiliation | Unknown | + + + | Race | White | + + + | Ethnic Group | Not or | + + + Author + + + | Author | [facility] REVENUE LOCATIONS | + + + | Organization | NON REVENUE LOCATIONS | + + + | Address | Unknown | + + + | Phone | Unavailable | + + + Support + + +---------+ + | Name | Relationship | Address | Phone | + + +---------+ + | Brittnee Wells | ECON | Unknown | | + + +---------+ + Care Team Providers + +------+ + | Care Mechanical Piping Designer Name | Role | Phone | + +------+ + | Zoe Stephen | PCP | | + +------+ + Source Comments [facility] is fully live [facility] both [facility] and [facility] Allergies + + + + + + | Active Allergy | Reactions | Severity | Noted | Comments | | | | | Date | | + + + + + + | Contrast Medium | Hives | | 12/17/19 | | | | | | 16 | | + + + + + + | Doxycycline Hyclate | Hives | | 12/17/19 | | | | | | 16 | | + + + + + + Medications + + + +---------+------+------+-------+ | Medication | Sig | Dispensed | Refills | Star | End | Statu | | | | | | t | Date | s | | | | | | Date | | | + + + +---------+------+------+-------+ | progesterone 50 | Inject 1 mL into the | 20 mL | | 08/1 | | Activ | | mg/mL intramuscular | muscle (IM) once | | | 6/20 | | e | | oil | daily. Begin | | | 16 | | | | | administering in the | | | | | | | | evening 2 days | | | | | | | | after your egg | | | | | | | | retrieval. | | | | | | + + + +---------+------+------+-------+ | Syringe with | Use to draw up | 30 | | 08/1 | | Activ | | Needle, Disp, 3 mL | Progesterone | Syringe | | 6/20 | | e | | 18 x 1 1/2" syringe | | | | 16 | | | + + + +---------+------+------+-------+ | Needle, Disp, 22 G | Use to Inject | 30 each | | 08/1 | | Activ | | 22 gauge x 1 1/2" | Progesterone | | | 6/20 | | e | | needle | | | | 16 | | | + + + +---------+------+------+-------+ | sharps container 1 | Use as directed. | 1 each | | 08/1 | | Activ | | pint misc | | | | 6/20 | | e | | | | | | 16 | | | + + + +---------+------+------+-------+ | vitamins, | Take 1 tablet by | | 0 | | | Activ | | with calcium, | mouth once daily. | | | | | e | | iron-folic acid 27 | | | | | | | | mg iron- 1 mg oral | | | | | | | | tablet | | | | | | | + + + +---------+------+------+-------+ | SYNTHROID 200 mcg | TAKE 1 TABLET BY | 90 | 0 | | | Activ | | oral | MOUTH ONCE DAILY | tablet | | 04/10 | | e | | tabletIndications: | | | | 17 | | | | Gabriel's disease | | | | | | | + + + +---------+------+------+-------+ Active Problems + + + | Problem | Noted Date | + + + | Flowsheet | 07/27/2016 | + + + + + | Overview: Formatting of this note might be different from the | | original. [facility] / [id number] | | Recurrent Loss Bloods Drawn Tubal Factor EDC: | | 04/03/16 Blood Type: O Positive ET Date: x Day 6 BhCG | | LEVELS P4 LEVELS EGA (Est. Gest Age) DATES 721.2 mIU/ml 59.97 | | 4w2d 07/27/2016 2736 mIU/ml 4w6d 07/31/16 mIU/ml mIU/ml | | mIU/ml ULTRASOUNDSEGA (Est Gestational Age): 6w3d | | Date: 08/11/16 Results: EGA (Est | | Gestational Age): Date: Results: EGA | | (Est Gestational Age): Date: Results: MOTION PICTURE COMMENTATOR | | Physician: Doctor letter dictated on: by: MEDICATION | | PLAN: | | mIU/ml | | mIU/ml | | mIU/ml | |ULTRASOUNDS | |EGA (Est Gestational Age): 6w3d Date: 08/11/16 | |Results: | | | |EGA (Est Gestational Age): Date: | |Results: | | | |EGA (Est Gestational Age): Date: | |Results: | | | | | |MOTION PICTURE COMMENTATOR Physician: | |Doctor letter dictated on: by: | | | |MEDICATION PLAN: | | | | | + + + + + | Borderline diabetes | 05/27/2016 | + + + + + | Overview: Hgb A1C 5.9% Last Assessment & Plan: 05/26/16. We | | reviewed borderline diabetes screen with Hgb A1C%, also referred | | to as "pre-diabetes". She does not meet criteria for overt | | T2DM. We reviewed importance of dietary choices, exercise and | | maintenance of healthy weight. We reviewed that women with | | borderline diabetes may have higher risk of glucose intolerance | | or mayra gestational diabetes in early . Diabetes in | | increases risk for anomaly, loss, | | growth abnormalities, and preeclampsia. For | | women with borderline diabetes entering there is no | | clear benefit of metformin. Especially since she appears to | | have normal ovulatory cycles and does not carry a diagnosis of | | PCOS. 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 We did | | review metformin use for potential benefit, but patient had GI | | intolerance to metformin in the past (which she tried as part of | | fertility planning with clomid). She would prefer dietary | | modification and light exercise and I agreed that this is | | reasonable. Overall, I feel comfortable with her pursuing IVF | | at this time. We agreed not to pursue metformin, but | | will maintain healthy lifestyle choices to optimize health going | | into . I would recommend early glucola challenge in | | (2hr GTT). If this is abnormal, we would recommend | | glucometer, CBG log and nutrition consult. If she was unable to | | meet specific glucose targets, medications such as metformin or | | insulin will be recommended. Finally, we reviewed her plan for | | 2-embryo transfer and risk of multiple gestation. We discussed | | heightened risks of GDM, and preeclampsia in this | | scenario. She expressed understanding and she notes that she | | herself is a twin, and her mother gave to two sets of | | twins. She will take today's information into consideration in | | her IVF planning. | + + + + + | IVF Screening Checklist | 04/18/2016 | + + + + + | Overview: Formatting of this note might be different from the | | original.Pre - IVF Screening ChecklistName: Melo Aguilar | | [facility] INITIAL CONSULT DATE COMMENT/RESULT IVF | | Consult 12/17/15 Completed Financial Counselor 12/17/15 Completed | | FEMALE: DATE COMMENTS/RESULT Day [address] Jha E2 | | Waived by Dr. Jha AMH 11/16/15 3.03 ABO/Rh Antibody Screen | | 11/16/15 O Positive HIV Ab Screen 04/21/16 Non-Reactive Hep B | | Surface Antigen 04/21/16 Negative Anti-HCV w/Reflex 04/21/16 Negative | | Treponema AB 04/21/16 Non-Reactive Rubella IgG (or date immunized) | | 11/16/15 Immune Varicella 04/21/16 Positive/Immune Vitamin D 04/21/16 | | 19 TSH 03/15/16 40.0 HgbA1C 11/16/15 6.0 Pap smear BAF/TT SIS | | Waived, see HSGBasal Antral Follicles:Right ovary: , BAF count: | | 12 follicesLeft ovary: , BAF count: 15-16 folliclesTT:Trial | | transfer Depth Position Catheter 6.1cm by US Sharply AV | | Soft pass Interpretation: Sharply AV uterus, TT without | | difficulty High BAF HSG 12/02/15 See Media Tab for Report - | | Cavity WNL MALE: Juan R CrumpMRN: [id number] DATE | | COMMENTS/RESULT HIV Ab Screen 04/21/16 Non-Reactive Hep B Surface | | Antigen 04/21/16 Negative Anti-HCV w/Reflex 04/21/16 Negative | | Treponema AB 04/21/16 Non-Reactive Semen Analysis 12/14/15 Component | | Latest Ref Rng 12/14/2015 12:00 AM TIME COMPLETED | | 16:45 VOLUME, SEMEN 1.5 - 5.0 ml or more 6 (A) COUNT 40 - | | 150 million/ml or more 60 MOTILITY % 60 - 100 % or more 80 | | VISCOSITY, SEMEN 1 - 2 Normal PH, SEMEN 7 - 8 8 NORMAL | | MORPHOLOGY % 70 - 100 % or more 24 (A) ROUND CELLS 5.0 hpf | | 15 (A) Other Andrology:Back-up FreezeTESE GENETICS: DATE | | COMMENTS/RESULT Consult Declined PGS Genetics Declined Counsyl | | Screen Declined Chromosome testing Declined ADDITIONAL | | SCREENING: DATE COMMENTS/RESULT Clearance Letter from Specialist | | Medical Release for Infectious Disease Other Misc Notes: | | -PMC consult needed if BMI >35, and this consult needs to be | | within 30 days of procedure.-MFM consult needed if patient needs | | medical clearance for , anticipating high-risk | | .-Mental Health consult needed if donor sperm/ 3rd | | democrat, | | | | Reproductive Psychologist | | visit.-Mammogram for advance maternal age > 50 (controversial, | | offer between ages 40-50, [id number]). | | | |HSG 12/02/15 See Media Tab for Report - Cavity WNL | |MALE: Juan R Crump | | DATE COMMENTS/RESULT | |HIV Ab Screen 04/21/16 Non-Reactive | |Hep B Surface Antigen 04/21/16 Negative | |Anti-HCV w/Reflex 04/21/16 Negative | |Treponema AB 04/21/16 Non-Reactive | |Semen Analysis 12/14/15 Component | | Latest Ref Rng 12/14/2015 | | | | 12:00 AM | |TIME COMPLETED | | 16:45 | |VOLUME, SEMEN | | 1.5 - 5.0 ml or more 6 (A) | |COUNT | | 40 - 150 million/ml or more 60 | |MOTILITY % | | 60 - 100 % or more 80 | |VISCOSITY, SEMEN | | 1 - 2 Normal | |PH, SEMEN | | 7 - 8 8 | |NORMAL MORPHOLOGY % | | 70 - 100 % or more 24 (A) | |ROUND CELLS | | 5.0 hpf 15 (A) | | | |Other Andrology: | |Back-up Freeze | |TESE | |GENETICS: DATE COMMENTS/RESULT | |Consult Declined | |PGS Genetics Declined | |Counsyl Screen Declined | |Chromosome testing Declined | |ADDITIONAL SCREENING: DATE COMMENTS/RESULT | |Clearance Letter from Specialist | |Medical Release for Infectious Disease | |Other | |Misc Notes: | |-PMC consult needed if BMI >35, and this consult needs to be within 30 days of procedure. | |-MFM consult needed if patient needs medical clearance for , anticipating high-ris k . | |-Mental Health consult needed if donor sperm/ 3rd democrat, Reproductive Psychologist vi sit. | |-Mammogram for advance maternal age > 50 (controversial, offer between ages 40-50, case-by- case). 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 We reviewed hypothyroidism | | with +anti-TPO antibodies and possible impact on future | | . Previously had TSH level of 40 in February but responded | | well to levothyroxine 175mcg. TSH decreased to 0.92 on 05/03 but | | then increased to 3.0 on 7/28. We reviewed importance of | | compliance with treatment and we reviewed optimal strategy of | | taking her thyroid medication on an empty stomach 30-60 min prior | | to meals. Substances such as calcium may impair absorption. We | | reviewed goal TSH <2.5-3.0 to optimize outcomes. | | Poorly controlled thyroid disorder can increase risk for | | loss, growth restriction, preeclampsia. High TSH | | levels (low thyroid hormone levels) in may also impact | | neurodevelopment in offspring. At current TSH level, and in | | light of ongoing treatment, she may pursue IVF without further | | modification. We would repeat TFT's 4-6 wks in until | | thyroid hormone / TSH levels are at goal. Thyroid medication | | often needs to be titrated up in later due to increase | | /placental demands over . | + + Family History + + +------+ + | Medical History | Relation | Name | Comments | + + +------+ + | Thyroid | Mother | | | + + +------+ + + +------+--------+ + | Relation | Name | Status | Comments | + +------+--------+ + | Mother | | | | + +------+--------+ + Social History + + + +--------+------+ [...] recent travel history available. | + + Last Filed Vital Signs + + + [...] | | + + + + + Plan of Treatment + + + + + | Health Maintenance | Due Date | Last Done | Comments | + + + + + | Pneumococcal | | | | | vaccination (1 of 1 | 3 | | | | - PPSV23) | | | | + + + + + | Influenza (Flu) | | | | | vaccination (#1) | 9 | | | + + + + + Results Not on filefrom Last 3 Months Insurance + +--------+ +--------+ + +------+ | Payer | Benefi | Subscriber | Effect | Phone | Address | Type | | | t Plan | ID | ana | | | | | | / | | Dates | | | | | | Group | | | | | | + +--------+ +--------+ + +------+ | BLUE CROSS BLUE | BCBS | xxxxxxxxxxx | 03/28/20 | [phone] | [address] | PPO | | SHIELD | OUT OF | x | 14-Pre | 8 | [id number] | | | | STATE | | sent | | [place], | | | | | | | | [place] | | | | | | | | [address] | | + +--------+ +--------+ + +------+ + +--------+ +--------+ + + | Guarantor Name | Accoun | Relation to | Date | Phone | Billing Address | | | t Type | Patient | of | | | | | | | | | | + +--------+ +--------+ + + | Melo Aguilar | Person | Self | [birth year] | [address] | | | al/Fam | | 1984 | [phone] | [place] [address] | | | taylor | | | 4 (Home) | | + +--------+ +--------+ + + | Melo Aguilar | UFC | Self | [birth year] | [address] | | | Billin | | 1984 | [phone] | [place] [address] | | | g Use | | | 4 (Home) | | | | Only | | | | | + +--------+ +--------+ + +
--- OUTSIDE RECORDS SUMMARY | ~2019-08-22 | XMS | Encounter Summary ---
Demographics + + + | Address | [address] | | | [place] [address] | + + + | Home Phone [...] Author + + + | Author | [facility] | + + + | Organization | [facility] | + + + | Address | Unknown | + + + | Phone | Unavailable | + + + Support + + +---------+ + | Name | Relationship | Address | Phone | + + +---------+ + | Brittnee Wells | ECON | Unknown | | + + +---------+ + Care Team Providers + +------+ + | Care Supervisor Research Shop Name | Role | Phone | + [...] your | | | | Consultants at [facility] | [place], [place] | 05-03-2016 appt | | | | [address] | [address] | | | | | Mailcode: CHET | [phone] | | | | | [facility] | | | | | | and Healing, | | | | | | Building | | | | | | Floor [facility] [place] | | | | | | [address] | | | | | | [phone] | | | +--------+ + + + [...]
--- OUTSIDE RECORDS SUMMARY | ~2019-08-22 | XMS | Encounter Summary ---
Demographics + + + | Address | [address] | | | [place] [address] | + + + | Home Phone [...] Team Providers + +------+ + | Care Reduction Plant Supervisor Name | Role | Phone | [...] | | [facility] | Avani Zhang [place], | | | | | Pav[address] | [place] [address] | | | | | [address] | [phone] | | | | | Physician's | | | | | | Pavilion | | | | | | Physician's Pavilion | | | | | | [place], [place] | | | | | | [address] | | | | | | [phone] | | | +--------+ + + + [...]
--- OUTSIDE RECORDS SUMMARY | ~2019-08-22 | XMS | Encounter Summary ---
Demographics + + + | Address | [address] | | | [place] [address] | + + + | Home Phone [...] Team Providers + +------+ + | Care Real Estate Subagent Name | Role | Phone | + [...] [facility] [place] | | | | | [facility] | [place], | | | | | Pav[address] | [place] [address] | | | | | [address] | [phone] | | | | | Physician's | | | | | | Pavilion | | | | | | Physician's Pavilion | | | | | | [place], [place] | | | | | | [address] | | | | | | [phone] | | | +--------+ + + + [...]
--- OUTSIDE RECORDS SUMMARY | ~2019-08-22 | XMS | Encounter Summary ---
Demographics + + + | Address | [address] | | | [place] [address] | + + + | Home Phone | | + + + | Preferred Language | Unknown | + + + | Marital Status | | + + + | Jew Affiliation | Unknown | + + + | Race | White | + + + | Ethnic Group | Not or | + + + Author + + + | Author | [facility] | + + + | Organization | [facility] | + + + | Address | Unknown | + + + | Phone | Unavailable | + + + Support + + +---------+ + | Name | Relationship | Address | Phone | + + +---------+ + | Brittnee Wells | ECON | Unknown | | + + +---------+ + Care Team Providers + +------+ + | Care Bureau Chief Name | Role | Phone | + [...] | | [facility] | [address] [place], | | | | | Pav[address] | [place] [address] | | | | | [address] | [phone] | | | | | Physician's | | | | | | Pavilion | | | | | | Phys[facility] Pavilion | | | | | | [place], [place] | | | | | | [address] | | | | | | [phone] | | | +--------+ + + + [...]
--- OUTSIDE RECORDS SUMMARY | ~2019-08-22 | XMS | Encounter Summary ---
Demographics + + + | Address | [address] | | | [place] [address] | + + + | Home Phone | | + + + | Preferred Language | Unknown | + + + | Marital Status | | + + + | Orthodoxy Affiliation | Unknown | + + + | Race | White | + + + | Ethnic Group | Not or | + + + Author + + + | Author | [facility] | + + + | Organization | [facility] | + + + | Address | Unknown | + + + | Phone | Unavailable | + + + Support + + +---------+ + | Name | Relationship | Address | Phone | + + +---------+ + | Brittnee Wells | ECON | Unknown | | + + +---------+ + Care Team Providers + +------+ + | Care Flush Tester Name | Role | Phone | + +------+ + | Zoe Stephen | PCP | | + +------+ + Encounter Details +--------+ + + + + | Date | Type | Department | Care Team | Description | +--------+ + + + + | 12/22/ | [facility] | [facility] | Paul Wheatley MD | RE: Labs | | 2016 | Encounter | [facility] | [address] | | | | | [facility] | Avani Zhang [place], | | | | | [address] | [place] [address] | | | | | [address] | [phone] | | | | | Physician's | | | | | | Pavilion | | | | | | Physician's Pavilion | | | | | | [place], [place] | | | | | | [address] | | | | | | [phone] | | | +--------+ + + + [...] + + | TSH | Routin | 03/15/2016 | Gabriel's | Results for this | | | e | | disease | procedure are in the | | | | | | results section. 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
--- OUTSIDE RECORDS SUMMARY | ~2019-08-22 | XMS | Encounter Summary ---
Demographics + + + | Address | [address] | | | [place] [address] | + + + | Home Phone [...] Team Providers + +------+ + | Care Melt House Supervisor Name | Role | Phone | + +------+ + | Zoe Stephen | PCP | | + +------+ + Reason for Visit + + + | Reason | Comments | + + + | Hypothyroidism | | + + + Consultation (Urgent) [...] | Metabolism | condition | [address] | [address] | | | | | Procedures | Ave | Avani Zhang | | | | | CONSULT TO | [place], [place] | Physician's | | | | | ENDOCRINOLOG | [address] | Pavilion | | | | | Y | Phone: | Physician's | | | | | | [phone] | Pavilion | | | | | | Fax: | [place], [place] | | | | | | [phone] | [address] | | | | | | | Phone: | | | | | | | [phone] | | | | | | | Fax: | | | | | | | [phone] | +--------+--------+ + + + + Encounter Details +--------+---------+ + + + | Date | Type | Department | Care Team | Description | +--------+---------+ + + + | 06/20/ | Office | [facility] | Paul Wheatley MD | Gabriel's disease | | 2016 | Visit | [facility] | [address] | (Primary Dx) | | | | [facility] | Avani Zhang [place], | | | | | [address] | [place] [address] | | | | | [address] | [phone] | | | | | Physician's | | | | | | [place] | | | | | | [facility]'s [place] | | | | | | [place], [place] | | | | | | [address] | | | | | | [phone] | | | +--------+---------+ + + + [...] + + + | Blood Pressure | 122/68 | 06/20/2016 12:27 PM | | | | | PDT | | + + + + + | Pulse | 78 | 06/20/2016 12:27 PM | | | | | PDT | | + + + + + | Temperature | - | - | | + + + + + | Respiratory Rate | 12 | 06/20/2016 12:27 PM | | | | | PDT | | + + + + + | Oxygen Saturation | - | - | | + + + + + | Inhaled Oxygen | - | - | | | Concentration | | | | + + + + + | Weight | 81.6 kg (180 lb) | 06/20/2016 12:27 PM | | | | | PDT | | + + + + + | Height | 162.6 cm (5' 4") | 06/20/2016 12:27 PM | | | | | PDT | | + + + + + | Body Mass Index | 30.9 | 06/20/2016 12:27 PM | | | | | PDT | | + + + + + documented in this encounter Progress Notes Paul Wheatley MD - 06/20/2016 12:38 PM PDTFormatting of this note might be different from t he original. Endocrine Clinic Pt is preparing for assisted reproduction with dr young. Has done very well with brand name levoxyl since nov 2015 visit. TSH much improved. goal TSH is under 2.5 for 1st trimester. I ncrease dose by 30% once . Check TSH every 4 weeks. encouraged smoking cessation Filed Vitals: 06/20/2016 12:27 PM Height: 1.626 m (5' 4") Weight: 81.647 kg (180 lb) BP: 122/68 Pulse: 78 Resp: 12 PainSc: 0 - Zero BMI: 30.88 kg/(m^2) The time I spent with the patient was 25 minutes of which greater than 50% was spent in one on one counseling. 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
--- OUTSIDE RECORDS SUMMARY | ~2019-08-22 | XMS | Encounter Summary ---
Demographics + + + | Address | [address] | | | [place] [address] | + + + | Home Phone [...] Team Providers + +------+ + | Care Ux Research Associate Name | Role | Phone | + +------+ + | Zoe Stephen | PCP | | + +------+ + Encounter Details +--------+ + + + + | Date | Type | Department | Care Team | Description | +--------+ + + + + | 08/29/ | Pharmacy | [facility] | | | | 2016 | Visit | & [facility] | | | | | | [address] | | | | | | Mailcode: [place] | | | | | | [facility] and | | | | | | Healing, [address] | | | | | | [place], [place] | | | | | | [address] | | | | | | [phone] | | | +--------+ + + + [...]
--- OUTSIDE RECORDS SUMMARY | ~2019-08-22 | XMS | Encounter Summary ---
Demographics + + + | Address | [address] | | | [place] [address] | + + + | Home Phone [...] Providers + +------+ + | Care Supervisor Air Conditioning Installer Name | Role | Phone | + [...] | | | | | Center at [facility] | Avani Zhang [place], | | | | | [address] | [place] [address] | | | | | [address] | [phone] | | | | | Physician's | | | | | | Pavilion | | | | | | Physician's Pavilion | | | | | | [place], [place] | | | | | | [address] | | | | | | [phone] | | | +--------+ + + + [...]
--- OUTSIDE RECORDS SUMMARY | ~2019-08-22 | XMS | Encounter Summary ---
Demographics + + + | Address | [address] | | | [place] [address] | + + + | Home Phone | | + + + | Preferred Language | Unknown | + + + | Marital Status | | + + + | Holiness Affiliation | Unknown | + + + [...] Team Providers + +------+ + | Care Face And Fill Packer Name | Role | Phone | + [...] Ave | | | | | | [place], [place] | Mailcode: | | | | | | [address] | [facility] | | | | | | Phone: | for Health | | | | | | [phone] | and Healing, | | | | | | Fax: | Building 1, | | | | | | [phone] | 10th Floor | | | | | | | [place], [place] | | | | | | | [address] | | | | | | | Phone: | | | | | | | [phone] | | | | | | | Fax: | | | | | | | [phone] | +--------+--------+ + + + + Encounter Details +--------+ + + + + | Date | Type | Department | Care Team | Description | +--------+ + + + + | 07/11/ | Procedure | University | Koki Jha MD | Egg Retrieval | | 2016 | | Fertility | [address] | | | | | Consultants at [facility] | [place], [place] | | | | | [address] | [address] | | | | | Mailcode: [facility] | [phone] | | | | | [facility] | | | | | | and [address], | [address] | | | | | Building | MD Fercho [address] [facility] | | | | | Floor [place], [place] | [address] [facility] | | | | | [address] | [place], [place] | | | | | [phone] | [address] | | | | | | [phone] | | | | | | | [...] | + +--------+ + + + | [place] FOLLICLE | Routin | 07/11/2016 | Encounter [...]
--- OUTSIDE RECORDS SUMMARY | ~2019-08-22 | XMS | Encounter Summary ---
Demographics + + + | Address | [address] | | | [place] [address] | + + + | Home Phone [...] Team Providers + +------+ + | Care Clamp Truck Driver Name | Role | Phone | [...] Endocrinology | | MD Koki | [facility] | | | | /Infertility | | [address] | [address] | | | | | | Ave | Ave | | | | | | [place], [place] | Mailcode: | | | | | | [address] | [address] | | | | | | Phone: | for Health | | | | | | [phone] | and Healing, | | | | | | Fax: | Building 1, | | | | | | [phone] | 10th Floor | | | | | | | [place], [place] | | | | | | | [address] | | | | | | | Phone: | | | | | | | [phone] | | | | | | | Fax: | | | | | | | [phone] | +--------+--------+ + + + + Encounter Details +--------+ + + + + | Date | Type | Department | Care Team | Description | +--------+ + + + + | 07/02/ | Procedure | University | Coleman Emery MD | Ultrasound Follicle | | 2016 | | Fertility | [address] | Exam | | | | Consultants at [facility] | [place], [place] | | | | | [address] | [address] | | | | | Mailcode: [facility] | [phone] | | | | | [facility] | | | | | | and Healing, | | | | | | Building 1, | | | | | | Floor [place], [place] | | | | | | [address] | | | | | | [phone] | | | +--------+ + + + [...] [facility] | [address], | [place] [address] | | | | Tenth Floor | | | + + + + + documented in this encounter Visit Diagnoses + + | Diagnosis | + + | Encounter for assisted reproductive fertility procedure cycle - Primary | + + documented in this encounter"
--- OUTSIDE RECORDS SUMMARY | ~2019-08-22 | XMS | Encounter Summary ---
Demographics + + + | Address | [address] | | | [place] [address] | + + + | Home Phone [...] Team Providers + +------+ + | Care Shirt Cleaner Name | Role | Phone | + +------+ + | Zoe Stephen | PCP | | + +------+ + Encounter Details +--------+ + + + + | Date | Type | Department | Care Team | Description | +--------+ + + + + | 07/13/ | MyCnelat | [place] | Aarti Christian MD | ET intructions | | 2016 | Encounter | Fertility | [address] | | | | | Consultants at [facility] | Avani Zhang [place], | | | | | [address] | [place] [address] | | | | | Mailcode: [facility] | [phone] | | | | | [facility] | | | | | | and Healing, | | | | | | Building | | | | | | Floor [place], [place] | | | | | | [address] | | | | | | [phone] | | | +--------+ + + + [...]
--- OUTSIDE RECORDS SUMMARY | ~2019-08-22 | XMS | Encounter Summary ---
Demographics + + + | Address | [address] | | | [place] [address] | + + + | Home Phone [...] Author | [facility] | + + + | Organization | [facility] | + + + | Address | Unknown | + + + | Phone | Unavailable | + + + Support + + +---------+ + | Name | Relationship | Address | Phone | + + +---------+ + | Brittnee Wells | ECON | Unknown | | + + +---------+ + Care Team Providers + +------+ + | Care Depositing Machine Operator Name | Role | Phone [...] Ave | | | | | | [place], [place] | Mailcode: | | | | | | [address] | [address] | | | | | | Phone: | for Health | | | | | | [phone] | and Healing, | | | | | | Fax: | Building 1, | | | | | | [phone] | 10th Floor | | | | | | | [place], [place] | | | | | | | [address] | | | | | | | Phone: | | | | | | | [phone] | | | | | | | Fax: | | | | | | | [phone] | +--------+--------+ + + + + Encounter Details +--------+ + + + + | Date | Type | Department | Care Team | Description | +--------+ + + + + | 06/28/ | Procedure | University | Coleman Emery MD | Suppression Check | | 2016 | | Fertility | [address] | | | | | Consultants at [facility] | [place], [place] | | | | | [address] | [address] | | | | | Mailcode: [facility] | [phone] | | | | | [facility] | | | | | | and [place], | | | | | | Building | | | | | | Floor [place], [place] | | | | | | [address] | | | | | | [phone] | | | +--------+ + + + [...] FOLLICLES (Measured in Millimeters) RIGHT OVARY VOLUME: [id number] Suppressed LEFT OVARY VOLUME: [id number] Suppressed 1 mean 1 mean 2 mean [...]
--- OUTSIDE RECORDS SUMMARY | ~2019-08-22 | XMS | Encounter Summary ---
Demographics + + + | Address | [address] | | | [place] [address] | + + + | Home Phone [...] Team Providers + +------+ + | Care Patient Registration Clerk Name | Role | Phone | [...] Ave | | | | | | [place], [place] | Mailcode: | | | | | | [address] | [facility] | | | | | | Phone: | for Health | | | | | | [phone] | and Healing, | | | | | | Fax: | Building 1, | | | | | | [phone] | 10th Floor | | | | | | | [facility] [place] | | | | | | | [address] | | | | | | | Phone: | | | | | | | [phone] | | | | | | | Fax: | | | | | | | [phone] | +--------+--------+ + + + + Encounter Details +--------+ + + + + | Date | Type | Department | Care Team | Description | +--------+ + + + + | 08/11/ | Procedure | University | John Espinoza MD | | | 2016 | | Fertility | [address] | | | | | Consultants at [facility] | [facility] [place] | | | | | [address] | [address] | | | | | Mailcode: [facility] | [phone] | | | | | [facility] | | | | | | and Mariah, | | | | | | | | | | | | Floor [facility] [place] | | | | | | [address] | | | | | | [phone] | | | +--------+ + + + [...] present 1.75cm 6w5d Yolk Sac: present 3.3mm Saucier Rump Length = .55cm, gestational age: 6w2d Heart Beat: 125 bpm Baby B - Fundal/Posterior Approach: transvaginal Uterus: normal Gestational Sac: present 1.54cm 6w2d Yolk Sac: present; not seen, 3.6mm Saucier Rump Length = .64cm, gestational age: 6w3d [...]
--- OUTSIDE RECORDS SUMMARY | ~2019-08-22 | XMS | Encounter Summary ---
Demographics + + + | Address | [address] | | | [place] [address] | + + + | Home Phone | | + + + | Preferred Language | Unknown | + + + | Marital Status | | + + + | Islam Affiliation | Unknown | + + + [...] Team Providers + +------+ + | Care City Planning Engineer Name | Role | Phone | [...] guidance, | | | | Consultants at [facility] | [place], [place] | and counseling | | | | [address] | [address] | | | | | Mailcode: [facility] | [phone] | | | | | [facility] | | | | | | and Healing, | | | | | | Building | | | | | | [place], [place] | | | | | | [address] | | | | | | [phone] | | | +--------+ + + + [...] | [facility] | [address], | [place] [address] | | | | Tenth Floor | [...] + + + | [facility] | [address] | [place] [address] | | | | Tenth Floor | | | + + + + + documented in this encounter Visit Diagnoses + + | Diagnosis | + + | Encounter for assisted reproductive fertility procedure cycle - Primary | + + documented in this encounter"
--- OUTSIDE RECORDS SUMMARY | ~2019-08-22 | XMS | Encounter Summary ---
Demographics + + + | Address | [address] | | | [place] [address] | + + + | Home Phone [...] Team Providers + +------+ + | Care Section Gang Name | Role | Phone | + [...] + + | 11/29/ | MyCnelat | [place] | Koki Jha MD | G information, | | 2016 | Encounter | Fertility | [address] | [place] [facility] | | | | Consultants at [facility] | [place], [place] | patient information | | | | [address] | [address] | | | | | Mailcode: CH10 | [phone] | | | | | [facility] | | | | | | and Mariah, | | | | | | Building | | | | | | Floor [place], [place] | | | | | | [address] | | | | | | [phone] | | | +--------+ + + + [...]
--- OUTSIDE RECORDS SUMMARY | ~2019-08-22 | XMS | Encounter Summary ---
Demographics + + + | Address | [address] | | | [place] [address] | + + + | Home Phone | | + + + | Preferred Language | Unknown | + + + | Marital Status | | + + + | Caodaism Affiliation | Unknown | + + + | Race | White | + + + | Ethnic Group | Not or | + + + Author + + + | Author | [facility] | + + + | Organization | [facility] | + + + | Address | Unknown | + + + | Phone | Unavailable | + + + Support + + +---------+ + | Name | Relationship | Address | Phone | + + +---------+ + | Brittnee Wells | ECON | Unknown | | + + +---------+ + Care Team Providers + +------+ + | Care Agricultural Chemist Name | Role | Phone | + [...] | | | Consultants at [facility] | [place], [place] | | | | | [address] | [address] | | | | | Mailcode: [facility] | [phone] | | | | | [facility] | | | | | | and Healing, | | | | | | Building | | | | | | Floor [place], [place] | | | | | | [address] | | | | | | [phone] | | | +--------+ + + + [...]
--- OUTSIDE RECORDS SUMMARY | ~2019-08-22 | XMS | Encounter Summary ---
Demographics + + + | Address | [address] | | | [place] [address] | + + + | Home Phone | | + + + | Preferred Language | Unknown | + + + | Marital Status | | + + + | Sikh Affiliation | Unknown | + + + [...] Providers + +------+ + | Care Principal Quality Engineer Name | Role | Phone | [...] + + | 12/02/ | Telephone | [place] | Koki Jha MD | Follow-up Plan | | 2016 | | Fertility | [address] | | | | | Consultants at [facility] | [place], [place] | | | | | [address] | [address] | | | | | Mailcode: [facility] | [phone] | | | | | [facility] | | | | | | and Mariah, | | | | | | Building | | | | | | Floor [place], [place] | | | | | | [address] | | | | | | [phone] | | | +--------+ + + + [...]
--- OUTSIDE RECORDS SUMMARY | ~2019-08-22 | XMS | Encounter Summary ---
Demographics + + + | Address | [address] | | | [place] [address] | + + + | Home Phone [...] Team Providers + +------+ + | Care Hospital Internship Name | Role | Phone | + +------+ + | Zoe Stephen | PCP | | + +------+ + Reason for Visit + + + | Reason | Comments | + + + | Abnormal Lab Result | | + + + Encounter Details +--------+ + + + + | Date | Type | Department | Care Team | Description | +--------+ + + + + | 05/19/ | Telephone | University | Koki Jha MD | Abnormal Lab Result | | 2016 | | Fertility | [address] | | | | | Consultants at [facility] | [place], [place] | | | | | [address] | [address] | | | | | Mailcode: [address] | [phone] | | | | | [facility] | | | | | | and Healing, | | | | | | Building | | | | | | [place], [place] | | | | | | [address] | | | | | | [phone] | | | +--------+ + + + [...] on filedocumented as of this encounter Results HEMOGLOBIN A1C, BLOOD (05/26/2016 [...] | + + + + + | [facility] | [address] | [place] [address] | | | SERVICES, SPECIAL | [address] | | | | IMM + COAG | | | | + + + + + documented in this encounter Visit Diagnoses + + | Diagnosis | + + | Abnormal laboratory test result - Primary Other abnormal clinical finding | + + documented in this encounter"
--- OUTSIDE RECORDS SUMMARY | ~2019-08-22 | XMS | Encounter Summary ---
Demographics + + + | Address | [address] | | | [place] [address] | + + + | Home Phone [...] Providers + +------+ + | Care Senior Assistant Manager Name | Role | Phone | [...] | | | | | Procedures | [place], [place] | [address] | | | | | CONSULT TO | [address] | Physician's | | | | | PERINATOLOGY | Phone: | Pavilion | | | | | | [phone] | [place], [place] | | | | | | Fax: | [address] | | | | | | [phone] | Phone: | | | | | | | [phone] | | | | | | | Fax: | | | | | | | [phone] | +--------+--------+ + + + + Encounter [...] | | [address] | [facility] SUITE | | | | | Physician's Pavilion | [address], | | | | | [facility] [place] | [place] [address] | | | | | [address] | [phone] | | | | | [phone] | | | +--------+ + + + [...] original. MFM New Consultation Referring Provider: [facility] Fertility Reason for consultation: Pre-Conception Consult Date [...] Glucose challenge with I spent 45 minutes [id number] with the patient of which over 50% [...]
--- OUTSIDE RECORDS SUMMARY | ~2019-08-22 | XMS | Encounter Summary ---
Demographics + + + | Address | [address] | | | [place] [address] | + + + | Home Phone | | + + + | Preferred Language | Unknown | + + + | Marital Status | | + + + | Cheondoism Affiliation | Unknown | + + + | Race | White | + + + | Ethnic Group | Not or | + + + Author + + + | Author | [facility] | + + + | Organization | [facility] | + + + | Address | Unknown | + + + | Phone | Unavailable | + + + Support + + +---------+ + | Name | Relationship | Address | Phone | + + +---------+ + | Brittnee Wells | ECON | Unknown | | + + +---------+ + Care Team Providers + +------+ + | Care C D Reactor Operator Name | Role | Phone | [...] | Center at [facility] | [address] [place], | | | | | Pavilion [address] | [place] [address] | | | | | [address] | [phone] | | | | | Physician's | | | | | | Pavilion | | | | | | Physician's Pavilion | | | | | | [place], [place] | | | | | | [address] | | | | | | [phone] | | | +--------+ + + + [...]
--- OUTSIDE RECORDS SUMMARY | ~2019-08-22 | XMS | Encounter Summary ---
Demographics + + + | Address | [address] | | | [place] [address] | + + + | Home Phone | | + + + | Preferred Language | Unknown | + + + | Marital Status | | + + + | Mormonism Affiliation | Unknown | + + + [...] Team Providers + +------+ + | Care Garment Sewer Hand Name | Role | Phone | + +------+ + | Zoe Stephen | PCP | | + +------+ + Encounter Details +--------+ + + + + | Date | Type | Department | Care Team | Description | +--------+ + + + + | 08/28/ | Pharmacy | [facility] | | | | 2015 | Visit | & [facility] | | | | | | [address] | | | | | | Mailcode: [place] | | | | | | [facility] and | | | | | | Healing, [address] | | | | | | [place], [place] | | | | | | [address] | | | | | | [phone] | | | +--------+ + + + [...]
--- OUTSIDE RECORDS SUMMARY | ~2019-08-22 | XMS | Encounter Summary ---
Demographics + + + | Address | [address] | | | [place] [address] | + + + | Home Phone | | + + + | Preferred Language | Unknown | + + + | Marital Status | | + + + | Episcopalian Affiliation | Unknown | + + + | Race | White | + + + | Ethnic Group | Not or | + + + Author + + + | Author | [facility] | + + + | Organization | [facility] | + + + | Address | Unknown | + + + | Phone | Unavailable | + + + Support + + +---------+ + | Name | Relationship | Address | Phone | + + +---------+ + | Brittnee Wells | ECON | Unknown | | + + +---------+ + Care Team Providers + +------+ + | Care Talent Sourcing Specialist Name | Role | Phone | [...] + + | 04/26/ | Telephone | [place] | Koki Jha MD | Shannan | | 2016 | | Fertility | [address] | | | | | Consultants at [facility] | [place], [place] | | | | | [address] | [address] | | | | | Mailcode: [facility] | [phone] | | | | | [facility] | | | | | | and Healing, | | | | | | Building | | | | | | Floor [place], [place] | | | | | | [address] | | | | | | [phone] | | | +--------+ + + + [...]
--- OUTSIDE RECORDS SUMMARY | ~2019-08-22 | XMS | Encounter Summary ---
Demographics + + + | Address | [address] | | | [place] [address] | + + + | Home Phone [...] Team Providers + +------+ + | Care Leg Man Name | Role | Phone | + +------+ + | Zoe Stephen | PCP | | + +------+ + Encounter Details +--------+ + + + + | Date | Type | Department | Care Team | Description | +--------+ + + + + | 06/06/ | Pharmacy | [facility] | | | | 2015 | Visit | & Healing Pharmacy | | | | | | [address] | | | | | | Mailcode: [employer] | | | | | | [facility] and | | | | | | Healing, Building [address] | | | | | | [place], [place] | | | | | | [address] | | | | | | [phone] | | | +--------+ + + + [...]
--- OUTSIDE RECORDS SUMMARY | ~2019-08-22 | XMS | Encounter Summary ---
Demographics + + + | Address | [address] | | | [place] [address] | + + + | Home Phone [...] Team Providers + +------+ + | Care Client Services Analyst Name | Role | Phone | + [...] + + | 07/12/ | Telephone | [place] | Koki Jha MD | Discussion | | 2015 | | Fertility | [address] | | | | | Consultants at [facility] | [place], [place] | | | | | [address] | [address] | | | | | Mailcode: CH10F | [phone] | | | | | [facility] | | | | | | and Mariah, | | | | | | Building | | | | | | [place], [place] | | | | | | [address] | | | | | | [phone] | | | +--------+ + + + [...]
--- OUTSIDE RECORDS SUMMARY | ~2019-08-22 | XMS | Clinical Summary ---
Demographics + + + | Address | [address] | | | [place] [address] | + + + | Home Phone | | + + + | Preferred Language | Unknown | + + + | Marital Status | | + + + | Mandaeism Affiliation | Unknown | + + + [...] Providers + +------+ + | Care Manager Simulation Name | Role | Phone | + +------+ + | Zoe Stephen | PCP | | + +------+ + Source Comments [facility] is fully live on both [facility] and [facility] InPatient.[facility] Allergies + + + + + [...] different from the | | original. [facility] Hospital[facility] Agu[facility] / [id number] | | Recurrent Loss Bloods Drawn Tubal [...] | | (Est Gestational Age): Date: Results: INFANT ROOM TEACHER | | Physician: Doctor letter dictated on: by: MEDICATION | | PLAN: | | mIU/ml | | mIU/ml | | mIU/ml | |ULTRASOUNDS | |EGA (Est Gestational Age): 6w3d Date: 08/11/16 | |Results: | | | |EGA (Est Gestational Age): Date: | |Results: | | | |EGA (Est Gestational Age): Date: | |Results: | | | | | |INFANT ROOM TEACHER Physician: | |Doctor letter dictated on: by: [...] IVF Screening ChecklistName: Melo Aguilar | | [facility] INITIAL CONSULT DATE COMMENT/RESULT IVF | | [...] | Cavity WNL MALE: Juan R CrumpMRN: [id number] DATE | | COMMENTS/RESULT HIV Ab Screen [...] needed if donor sperm/ 3rd | | alliance party, | | | | Reproductive Psychologist | | visit.-Mammogram for advance maternal age > 50 (controversial, | | offer between ages 40-50, [id number]). | | | |HSG 12/02/15 See Media [...] Health consult needed if donor sperm/ 3rd alliance party, Reproductive Psychologist vi sit. | |-Mammogram for [...] | BCBS | [id number] | 03/28/20 | [phone] | [address] | PPO | | SHIELD | OUT OF | x | 14-Pre | 8 | [address] | | | | STATE | | sent | | [place], | | | | | | | | [place] | | | | | | | | [address] | | + +--------+ +--------+ + +------+ [...] Self | [birth year] | | [address] | | | al/Fam | | 1984 | [id number] | [place] [address] | | | [place]aylor | | | 4 (Home) | | + +--------+ +--------+ + + | Melo Aguilar | UFC | Self | [birth year] | | [address] | | | Billin | | 1984 | [id number] | [place] [address] | | | g Use | | | 4 (Home) | | | | Only | | | | | + +--------+ +--------+ + +
--- OUTSIDE RECORDS SUMMARY | ~2019-08-22 | XMS | Encounter Summary ---
Demographics + + + | Address | [address] | | | [place] [address] | + + + | Home Phone [...] Providers + +------+ + | Care Sales Product Manager Name | Role | Phone | [...] | | | | Consultants at [facility] | [place], [place] | and counseling | | | | [address] | [address] | | | | | Mailcode: CH10F | [phone] | | | | | [facility] | | | | | | and Healing, | | | | | | Building | | | | | | [place], [place] | | | | | | [address] | | | | | | [phone] | | | +--------+ + + + [...]
--- OUTSIDE RECORDS SUMMARY | ~2019-08-22 | XMS | Encounter Summary ---
Demographics + + + | Address | [address] | | | [place] [address] | + + + | Home Phone [...] Team Providers + +------+ + | Care Gas Engine Performance Engineer Name | Role | Phone | [...] Exam | | | | Consultants at [facility] | [place], [place] | | | | | [address] | [address] | | | | | Mailcode: [facility] | [phone] | | | | | [facility] | | | | | | and Healing, | | | | | | Building | | | | | | Floor [place], [place] | | | | | | [address] | | | | | | [phone] | | | +--------+ + + + [...]
--- OUTSIDE RECORDS SUMMARY | ~2019-08-22 | XMS | Encounter Summary ---
Demographics + + + | Address | [address] | | | [place] [address] | + + + | Home Phone [...] Team Providers + +------+ + | Care Outbound Sales Agent Name | Role | Phone | + +------+ + | Zoe Stephen | PCP | | + +------+ + Encounter Details +--------+ + + + + | Date | Type | Department | Care Team | Description | +--------+ + + + + | 07/13/ | [facility] | [place] | Aarti Christian MD | ET intructions | | 2016 | Encounter | Fertility | [address] | | | | | Consultants at [facility] | Avani [place], | | | | | [address] | [place] [address] | | | | | Mailcode: [facility] | [phone] | | | | | [facility] | | | | | | and Healing, | | | | | | Building | | | | | | Floor [place], [place] | | | | | | [address] | | | | | | [phone] | | | +--------+ + + + [...]
--- OUTSIDE RECORDS SUMMARY | ~2019-08-22 | XMS | Encounter Summary ---
Demographics + + + | Address | [address] | | | [place] [address] | + + + | Home Phone [...] Author + + + | Author | [facility] | + + + | Organization | [facility] | + + + | Address | Unknown | + + + | Phone | Unavailable | + + + Support + + +---------+ + | Name | Relationship | Address | Phone | + + +---------+ + | Brittnee Wells | ECON | Unknown | | + + +---------+ + Care Team Providers + +------+ + | Care Manager Skilled Name | Role | Phone | + [...] Ave | | | | | | [place], [place] | Mailcode: | | | | | | [address] | [address] | | | | | | Phone: | for Health | | | | | | [phone] | and Healing, | | | | | | Fax: | Building 1, | | | | | | [phone] | 10th Floor | | | | | | | [place], [place] | | | | | | | [address] | | | | | | | Phone: | | | | | | | [phone] | | | | | | | Fax: | | | | | | | [phone] | +--------+--------+ + + + + Encounter Details +--------+ + + + + | Date | Type | Department | Care Team | Description | +--------+ + + + + | 07/16/ | Telephone-S | [place] | Koki Jha MD | Infertility Care | | 2015 | cheduled | Fertility | [address] | | | | | Consultants at [facility] | [place], [place] | | | | | [address] | [address] | | | | | Mailcode: CH10F | [phone] | | | | | [facility] | | | | | | and [place]iah, | | | | | | Building | | | | | | Floor [place], [place] | | | | | | [address] | | | | | | [phone] | | | +--------+ + + + [...]
--- OUTSIDE RECORDS SUMMARY | ~2019-08-22 | XMS | Encounter Summary ---
Demographics + + + | Address | [address] | | | [place] [address] | + + + | Home Phone | | + + + | Preferred Language | Unknown | + + + | Marital Status | | + + + | Samaritan Affiliation | Unknown | + + + | Race | White | + + + | Ethnic Group | Not or | + + + Author + + + | Author | [facility] | + + + | Organization | [facility] | + + + | Address | Unknown | + + + | Phone | Unavailable | + + + Support + + +---------+ + | Name | Relationship | Address | Phone | + + +---------+ + | Brittnee Wells | ECON | Unknown | | + + +---------+ + Care Team Providers + +------+ + | Care Animal Killer Name | Role | Phone | + [...] + + | 07/04/ | Telephone | [place] | Koki Jha MD | Lab findings, | | 2016 | | Fertility | [address] | teaching, guidance, | | | | Consultants at [facility] | [place], [place] | and counseling | | | | [address] | [address] | | | | | Mailcode: CH10F | [phone] | | | | | [facility] | | | | | | and Healing, | | | | | | Building | | | | | | [place], [place] | | | | | | [address] | | | | | | [phone] | | | +--------+ + + + [...] [facility] | [address], | [place] [address] | | | | Tenth Floor | | | + + + + + documented in this encounter Visit Diagnoses + + | Diagnosis | + + | Encounter for assisted reproductive fertility procedure cycle - Primary | + + documented in this encounter"
--- OUTSIDE RECORDS SUMMARY | ~2019-08-22 | XMS | Encounter Summary ---
Demographics + + + | Address | [address] | | | [place] [address] | + + + | Home Phone | | + + + | Preferred Language | Unknown | + + + | Marital Status | | + + + | Congregation Affiliation | Unknown | + + + [...] Team Providers + +------+ + | Care Veterinary Technician Assistant Name | Role | Phone | + +------+ + | No Pcp Per Patient | PCP | Unavailable | + +------+ + Reason for Visit + + + | Reason | Comments | + + + | Nutritional | | | counseling | | + + + Encounter Details +--------+ + + + + | Date | Type | Department | Care Team | Description | +--------+ + + + + | 11/22/ | Telephone | [facility] | Ciarra Lorenzo, | Nutritional | | 2016 | | Health at [facility] [address] | counseling | | | | [address] [facility] | [facility] [address] | | | | | Vicente Figu[address]a | [place], [place] | | | | | [place], [place] | [address] | | | | | [address] | | | | | | [phone] | | | +--------+ + + + [...]
--- OUTSIDE RECORDS SUMMARY | ~2019-08-22 | XMS | Encounter Summary ---
Demographics + + + | Address | [address] | | | [place] [address] | + + + | Home Phone [...] Team Providers + +------+ + | Care Cigar Tobacco Rehandler Name | Role | Phone | + [...] test result | | | | at [facility] 3rd Floor | | | | | | [address] | | | | | | Avani Zhang [place], | | | | | | [place] [address] | | | | | | [phone] | | | +--------+------+ + + + [...] | + + + + + | [facility] | [address] | [place] [address] | | | SERVICES, SPECIAL | [address] | | | | IMM + COAG | | | | + + + + + documented in this encounter Visit Diagnoses + + | Diagnosis | + + | Abnormal laboratory test result Other abnormal clinical finding | + + documented in this encounter"
--- OUTSIDE RECORDS SUMMARY | ~2019-08-22 | XMS | Encounter Summary ---
Demographics + + + | Address | [address] | | | [place] [address] | + + + | Home Phone | | + + + | Preferred Language | Unknown | + + + | Marital Status | | + + + | Mormon Affiliation | Unknown | + + + [...] Team Providers + +------+ + | Care Pipelines Manager Name | Role | Phone | + +------+ + | Zoe Stephen | PCP | | + +------+ + Encounter Details +--------+ + + + + | Date | Type | Department | Care Team | Description | +--------+ + + + + | 07/12/ | Documentati | [place] | Koki Jha MD | | | 2016 | on | Fertility | [address] | | | | | Consultants at [facility] | [place], [place] | | | | | [address] | [address] | | | | | Mailcode: [facility] | [phone] | | | | | [facility] | | | | | | and Healing, | | | | | | | | | | | | Floor [facility] [place] | | | | | | [address] | | | | | | [phone] | | | +--------+ + + + [...]
--- OUTSIDE RECORDS SUMMARY | ~2019-08-22 | XMS | Encounter Summary ---
Demographics + + + | Address | [address] | | | [place] [address] | + + + | Home Phone [...] Team Providers + +------+ + | Care Flat Folder Name | Role | Phone | + +------+ + | Zoe Stephen | PCP | | + +------+ + Encounter Details +--------+ + + + + | Date | Type | Department | Care Team | Description | +--------+ + + + + | 08/29/ | Pharmacy | [facility] | | | | 2016 | Visit | & Healing Pharmacy | | | | | | [address] | | | | | | Mailcode: [place] | | | | | | [facility] and | | | | | | Healing, Building [address] | | | | | | [place], [place] | | | | | | [address] | | | | | | [phone] | | | +--------+ + + + [...]
--- OUTSIDE RECORDS SUMMARY | ~2019-08-22 | XMS | Encounter Summary ---
Demographics + + + | Address | [address] | | | [place] [address] | + + + | Home Phone [...] Team Providers + +------+ + | Care Business Sales Consultant Name | Role | Phone | [...] Endocrinology | | MD Koki | Faculty [facility] | | | | /Infertility | | [address] | [address] | | | | | | Ave | Ave | | | | | | [place], [place] | Mailcode: | | | | | | [address] | [address] | | | | | | Phone: | for Health | | | | | | [phone] | and Healing, | | | | | | Fax: | Building 1, | | | | | | [phone] | 10th Floor | | | | | | | [place], [place] | | | | | | | [address] | | | | | | | Phone: | | | | | | | [phone] | | | | | | | Fax: | | | | | | | [phone] | +--------+--------+ + + + + Encounter Details +--------+ + + + + | Date | Type | Department | Care Team | Description | +--------+ + + + + | 07/07/ | Procedure | [facility] | Coleman Emery MD | Ultrasound Follicle | | 2016 | | Fertility | [address] | Exam | | | | Consultants at [facility] | [place], [place] | | | | | [address] | [address] | | | | | Mailcode: CH10 | [phone] | | | | | [facility] | | | | | | and Healing, | | | | | | Building 1, | | | | | | Floor [place], [place] | | | | | | [address] | | | | | | [phone] | | | +--------+ + + + [...]
--- OUTSIDE RECORDS SUMMARY | ~2019-08-22 | XMS | Encounter Summary ---
Demographics + + + | Address | [address] | | | [place] [address] | + + + | Home Phone [...] Providers + +------+ + | Care Manager Access Name | Role | Phone | + [...] + + | 05/26/ | Documentati | [place] | Koki Jha MD | IVF Physician | | 2016 | on | Fertility | [address] | Checklist | | | | Consultants at [facility] | [place], [place] | | | | | [address] | [address] | | | | | Mailcode: CH10 | [phone] | | | | | [facility] | | | | | | and Mariah, | | | | | | Building | | | | | | Floor [place], [place] | | | | | | [address] | | | | | | [phone] | | | +--------+ + + + [...]
--- OUTSIDE RECORDS SUMMARY | ~2019-08-22 | XMS | Encounter Summary ---
Demographics + + + | Address | [address] | | | [place] [address] | + + + | Home Phone [...] Team Providers + +------+ + | Care Missile Tracking Technician Name | Role | Phone | [...] | | | | | Center at [facility] | Avani [place], | | | | | Pavilion [address] | [place] [address] | | | | | [address] | [phone] | | | | | Physician's | | | | | | Pavilion | | | | | | Physician's Pavilion | | | | | | [place], [place] | | | | | | [address] | | | | | | [phone] | | | +--------+--------+ + + + [...]
--- OUTSIDE RECORDS SUMMARY | ~2019-08-22 | XMS | Encounter Summary ---
Demographics + + + | Address | [address] | | | [place] [address] | + + + | Home Phone [...] Team Providers + +------+ + | Care Mortgage Closer Name | Role | Phone | + [...] | | | | CONSULT TO | [place], [place] | Physician's | | | | | ENDOCRINOLOG | [address] | Pavilion | | | | | Y | Phone: | Physician's | | | | | | [phone] | Pavilion | | | | | | Fax: | [place], [place] | | | | | | [phone] | [address] | | | | | | | Phone: | | | | | | | [phone] | | | | | | | Fax: | | | | | | | [phone] | +--------+--------+ + + + + Encounter Details +--------+---------+ + + + | Date | Type | Department | Care Team | Description | +--------+---------+ + + + | 06/20/ | Office | [facility] | Paul Wheatley MD | 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
--- OUTSIDE RECORDS SUMMARY | ~2019-08-22 | XMS | Encounter Summary ---
Demographics + + + | Address | [address] | | | [place] [address] | + + + | Home Phone [...] Team Providers + +------+ + | Care Dog Handler Or Trainer Name | Role | Phone | + [...] | | | | | Consultants at [facility] | [place], [place] | | | | | [address] | [address] | | | | | Mailcode: [address] | [phone] | | | | | [facility] | | | | | | and Healing, | | | | | | Building | | | | | | [place], [place] | | | | | | [address] | | | | | | [phone] | | | +--------+ + + + [...] | + + + + + | [facility] | [address] | [place] [address] | | | SERVICES, SPECIAL | [address] | | | | IMM + COAG | | | | + + + + + documented in this encounter Visit Diagnoses + + | Diagnosis | + + | Abnormal laboratory test result - Primary Other abnormal clinical finding | + + documented in this encounter"
--- OUTSIDE RECORDS SUMMARY | ~2019-08-22 | XMS | Encounter Summary ---
Demographics + + + | Address | [address] | | | [place] [address] | + + + | Home Phone [...] + + + | Author | [facility] | + + + | Organization | [facility] | + + + | Address | Unknown | + + + | Phone | Unavailable | + + + Support + + +---------+ + | Name | Relationship | Address | Phone | + + +---------+ + | Brittnee Wells | ECON | Unknown | | + + +---------+ + Care Team Providers + +------+ + | Care Land Leases And Rentals Manager Name | Role | Phone | [...] | | Center Physicians | Avani Zhang [place], | | | | | Pavilion [address] | [place] [address] | | | | | [address] | [phone] | | | | | Physician's | | | | | | Pavilion | | | | | | Physician's Pavilion | | | | | | [place], [place] | | | | | | [address] | | | | | | [phone] | | | +--------+ + + + [...]
--- OUTSIDE RECORDS SUMMARY | ~2019-08-22 | XMS | Encounter Summary ---
Demographics + + + | Address | [address] | | | [place] [address] | + + + | Home Phone [...] Team Providers + +------+ + | Care Mass Spectrometry Specialist Name | Role | Phone | + +------+ + | Zoe Stephen | PCP | | + +------+ + Encounter Details +--------+ + + + + | Date | Type | Department | Care Team | Description | +--------+ + + + + | 11/30/ | [place] | [place] | Koki Jha MD | Sperm specimen | | 2016 | Encounter | Fertility | [address] | | | | | Consultants at [facility] | [place], [place] | | | | | [address] | [address] | | | | | Mailcode: [facility] | [phone] | | | | | [facility] | | | | | | and Healing, | | | | | | | | | | | | Floor [facility] [place] | | | | | | [address] | | | | | | [phone] | | | +--------+ + + + [...]
--- OUTSIDE RECORDS SUMMARY | ~2019-08-22 | XMS | Encounter Summary ---
Demographics + + + | Address | [address] | | | [place] [address] | + + + | Home Phone | | + + + | Preferred Language | Unknown | + + + | Marital Status | | + + + | Taoist Affiliation | Unknown | + + + [...] Team Providers + +------+ + | Care Flexographic Printing Machinist Name | Role | Phone | + [...] Release | | | | Consultants at [facility] | [place], [place] | | | | | [address] | [address] | | | | | Mailcode: CH10 | [phone] | | | | | [facility] | | | | | | and Healing, | | | | | | Building 1, | | | | | | Floor [place], [place] | | | | | | [address] | | | | | | [phone] | | | +--------+ + + + [...]
--- OUTSIDE RECORDS SUMMARY | ~2019-08-22 | XMS | Encounter Summary ---
Demographics + + + | Address | [address] | | | [place] [address] | + + + | Home Phone [...] Team Providers + +------+ + | Care Barrel Stave Inspector Name | Role | Phone | [...] | | 2016 | | Health at [facility] [address] | counseling | | | | [address] [facility] | [facility] [address] | | | | | Vicente Figueroa | [place], [place] | | | | | [place], [place] | [address] | | | | | [address] | | | | | | [phone] | | | +--------+ + + + [...]
--- OUTSIDE RECORDS SUMMARY | ~2019-08-22 | XMS | Encounter Summary ---
Demographics + + + | Address | [address] | | | [place] [address] | + + + | Home Phone [...] Team Providers + +------+ + | Care Sheet Metal Helper Name | Role | Phone | + +------+ + | Zoe Stephen | PCP | | + +------+ + Encounter Details +--------+ + + + + | Date | Type | Department | Care Team | Description | +--------+ + + + + | 06/07/ | Pharmacy | [facility] | | | | 2015 | Visit | & Healing Pharmacy | | | | | | [address] | | | | | | Mailcode: [place] | | | | | | [facility] and | | | | | | Healing, Building [address] | | | | | | [place], [place] | | | | | | [address] | | | | | | [phone] | | | +--------+ + + + [...]
--- OUTSIDE RECORDS SUMMARY | ~2019-08-22 | XMS | Encounter Summary ---
Demographics + + + | Address | [address] | | | [place] [address] | + + + | Home Phone [...] Team Providers + +------+ + | Care Brass Burnisher Name | Role | Phone | + [...] | | | | | Center at [facility] | Avani Zhang [place], | | | | | Pavilion [address] | [place] [address] | | | | | [address] | [phone] | | | | | Physician's | | | | | | Pavilion | | | | | | Physician's Pavilion | | | | | | [place], [place] | | | | | | [address] | | | | | | [phone] | | | +--------+--------+ + + + [...]
--- OUTSIDE RECORDS SUMMARY | ~2019-08-22 | XMS | Encounter Summary ---
Demographics + + + | Address | [address] | | | [place] [address] | + + + | Home Phone [...] Team Providers + +------+ + | [employer] Library Clerk Name | Role | Phone | [...] | [facility] | [facility] [place], | | | | | [facility] [address] | [place] [address] | | | | | [address] | [phone] | | | | | Physician[facility] | | | | | | [facility] | | | | | | [facility] | | | | | | [place], [place] | | | | | | [address] | | | | | | [phone] | | | +--------+ + + + [...] [facility] | [address] | [place], [place] | | | | [address] | [address] | | + + + + + documented in this encounter Visit Diagnoses + + | Diagnosis | + + | 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
== END ==
LOC: ED 00:56
DX: S93.401A Sprain of unspecified ligament of right ankle, initial encounter (principal); X50.9XXA Other and unspecified overexertion or strenuous movements or postures, initial encounter; E03.9 Hypothyroidism, unspecified; F17.200 Nicotine dependence, unspecified, uncomplicated; Z91.041 Radiographic dye allergy status; Z88.1 Allergy status to other antibiotic agents; Z79.899 Other long term (current) drug therapy
CPT/HCPCS: 73610; 99283-25

== ENCOUNTER 2019-11-06 05:40 | Day surgery (SDC) | payer SELFPAY ==
[~2019-11-06] VITALS: Ht 162.6 cm; Wt 85.3 kg
--- NOTE | ~2019-11-06 | OR ---
[facility] [address], [place] [address] Draft DATE OF OPERATION: 11/06/2019 SURGEON: Jordan Mcgee DO PREOPERATIVE DIAGNOSES: 1. Abnormal uterine bleeding. 2. Dysmenorrhea. 3. Tobacco use disorder. POSTOPERATIVE DIAGNOSES: 1. Abnormal uterine bleeding. 2. Dysmenorrhea. 3. Tobacco use disorder. 4. Pelvic and abdominal adhesions. PROCEDURES PERFORMED: 1. Total laparoscopic hysterectomy. 2. Bilateral salpingectomy. 3. Cystoscopy. 4. Lysis of adhesions. SELF DEFENSE INSTRUCTOR: Rian Cutler MD ANESTHESIA: General. ESTIMATED BLOOD LOSS: 75 mL. FINDINGS: Normal external genitalia, vagina, and cervix. On laparoscopy, dense omental adhesions to the anterior abdominal wall. The umbilicus noted and taken down. Ovaries normal bilaterally. The right fallopian tube appears normal. Left fallopian tube appears somewhat dilated. Normal fimbria bilaterally. Dense adhesions of the bladder to the lower uterine segment. Cul-de-sac shows extensive filmy adhesions consistent with history of PID and tubal dysfunction. No evidence of endometriosis. Excellent hemostasis. Vaginal support at the end of the procedure. On cystoscopy, there was normal urethra, bladder dome and bilateral ureteral jets. Squamous metaplasia of the trigone is noted. PATIENT NAME: EL AGUILAR OPERATIVE REPORT DATE OF : 89 REPORT #: [id number] PHYSICIAN: JORDAN MCGEE DO PCP: PALLAVI BRITO REPORT IS CONFIDENTIAL AND NOT TO BE RELEASED WITHOUT AUTHORIZATION [facility] [address], [place] [address] Draft COMPLICATIONS: None. INDICATIONS: Ms. Aguilar is a pleasant 34-year-old white female, who presents with a long history of abnormal uterine bleeding and dysmenorrhea. She has failed conservative treatments including Mirena IUD and wishes to proceed with definitive treatment with hysterectomy. Risks, benefits, and alternatives were discussed in detail with the patient. The patient understands and wished to proceed with the procedure. TECHNIQUE: The patient was taken to the operating room where a time-out was performed to confirm correct patient and correct procedure. General anesthesia was adequately established. The patient was prepped and draped in the dorsal lithotomy position with feet in Yellofin stirrups. ICPs were on and running, and patient received 2 g of Ancef preoperatively per SCIP protocol. No heparin was indicated. A Zuniga catheter was inserted. A weighted speculum was placed in the vagina and the anterior lip of the cervix was grasped with single-tooth tenaculum. IUD was grasped with strings and removed without difficulty. The cervix was gently dilated using Hegar dilators and a VCare uterine manipulator was placed without difficulty. The surgeon's gloves were changed and attention was turned to the umbilicus. The base of the umbilicus was infiltrated with 0.25% Marcaine with epinephrine. A 4 cm incision was made with surgical scalpel and the fascia was grasped with hemostats, elevated, and incised sharply with Metzenbaum scissors. The anterior and posterior edges of the fascial incision were tagged with 0 Vicryl stay sutures. The peritoneum was then bluntly entered using the surgeon's finger and omental adhesions were immediately palpated around the peritoneal entry. A 10 mm Rand port was then placed with low opening pressures noted. Pneumoperitoneum was established and 5 mm trocar was placed in left lower quadrant under direct visualization without complication. An 8 mm expanding port was placed in the right lower quadrant without complication. Attention was turned to omental adhesions. Dense omental adhesions were noted in the midline of the anterior abdominal wall. No bowel was noted in these adhesions. Decision was made to proceed with lysis of adhesions. A LigaSure device was selected and omental adhesions were fulgurated and divided at the attachment to the anterior abdominal wall. Omentum was noted to be hemostatic. Attention was then turned to the pelvis. Normal right fallopian tube and bilateral normal ovaries were observed. The left ovary does appear to be somewhat dilated consistent with history of tubal disease following PID. There are extensive filmy adhesions in the cul-de-sac and pelvic sidewall again consistent with history of PID. The bladder is extensively scarred and adherent to the lower uterine segment. It was felt that her anatomy was amenable to continuing laparoscopic total hysterectomy and the procedure was continued. The left fallopian tube was grasped PATIENT NAME: EL AGUILAR OPERATIVE REPORT DATE OF : [birth year] REPORT #: [id number] PHYSICIAN: JORDAN MCGEE DO PCP: PALLAVI BRITO REPORT IS CONFIDENTIAL AND NOT TO BE RELEASED WITHOUT AUTHORIZATION [facility] [address], [place] [address] Draft at the fimbriated end, elevated and dissected using the LigaSure device. The LigaSure was used to divide the fallopian tube in the mesosalpinx to the cornua. The tube was then amputated and delivered. The utero-ovarian ligament and round ligaments were then fulgurated and divided with good hemostasis. The leaves of the broad ligament were then divided. The posterior leaf was dissected to the attachment of the uterosacral ligament on the left without difficulty. The anterior leaf was dissected to the edge of the uterus where the bladder became densely adherent. The uterine vessels were easily visualized at the level of the cervical cup and the uterine vessels were fulgurated and divided with good hemostasis. Attention was turned to the right side where the process was repeated. The fallopian tube was divided along the mesosalpinx and delivered. The right utero-ovarian ligament and round ligaments were fulgurated and divided. The leaves of the broad ligament were divided and the adhesions of the bladder to the lower uterine segment were much less on the right side. A clear surgical plane was entered and the bladder was easily dissected and pushed well below the vaginal cup. The posterior leaf of the broad ligament was then divided to the level of the uterosacral ligament on the right. Uterine vessels were fulgurated and divided. Brisk bleeding from the uterine artery was observed. However, this was quickly made hemostatic using the LigaSure device. Once dissection was completed around the vaginal cup, a Sonicision device was selected and colpotomy was made starting at 5 o'clock. The green edge of the vaginal cuff was immediately seen and this was followed circumferentially until the cervix and uterus were from the vagina. The cervix and uterus were delivered through the vagina without difficulty and the vagina was stuffed with a wet lap inside of a glove to maintain pneumoperitoneum. The pelvis was irrigated and a small amount of oozing was noted along the right edge of the vaginal epithelium. This was made hemostatic with monopolar cautery judiciously used well away from the ureter. Colpotomy was then repaired using a V-Loc suture with an Endostitch device. Careful attention was performed to incorporate the uterosacral ligaments and to include the vaginal epithelium with each bite. Good cuff closure, hemostasis, and vaginal suspension were appreciated. The pelvis was irrigated and found to be hemostatic. Tisseel was applied to the vaginal cuff and two portions of the broad ligament and medial salpinx dissection sites. Pneumoperitoneum was then reduced and trocars were removed. Fascia of the umbilical incision was reapproximated using 0 Vicryl in a running nonlocked manner and then stay sutures were tied to reinforce this. A 4-0 Monocryl was used to close skin incisions over the trocars with good hemostasis and cosmesis. Attention was turned to cystoscopy. The Zuniga catheter was removed and the cystoscope was placed in the urethral meatus and advanced under direct visualization into the bladder. Normal bladder dome was noted. Squamous metaplasia of the trigone was also noted consistent with patient's history of heavy smoking. Bilateral ureteral jets were easily appreciated. The bladder was drained. The Zuniga catheter was reinserted. The glove was removed from the vagina and the patient was taken to PACU in good and stable condition. Sponge, needle, and instrument count was correct x2 at the end of procedure. PATIENT NAME: EL AGUILAR OPERATIVE REPORT DATE OF : [birth year] REPORT #: [id number] PHYSICIAN: JORDAN MCGEE DO PCP: PALLAVI BRITO REPORT IS CONFIDENTIAL AND NOT TO BE RELEASED WITHOUT AUTHORIZATION [address] [address] [place] He was present and participated in all portions of procedure. Jordan Mcgee DO JDW/MODL /[id number] Copies: ~ PATIENT NAME: EL AGUILAR GILLIAN OPERATIVE REPORT DATE OF : [birth year] REPORT #: [id number] PHYSICIAN: JORADN MCGEE DO PCP: PALLAVI BRITO REPORT IS CONFIDENTIAL AND NOT TO BE RELEASED WITHOUT AUTHORIZATION
[2019-11-06] MEDS ORDERED: ADVIL LIQUI-GE200 MG PO (05:55)
--- NOTE | 2019-11-06 09:41 | NUR ---
11/06/19 0941 Kia Mooney 0925- PT ARRIVES TO PACU AROUSABLE AND STARTED REPORTING THAT HER ABD IS " CRAMPING" AND SHE IS HAVING "DISCOMFORT". PT RATES THE PAIN A 5/10. NATALIIA ORNELAS, RN PULLING PAIN MEDICATION. ORIANA PERES CRNA AT THE BEDSIDE. RESP EVEN AND UNLABORED. OXYGEN SAT HIGH 90'S TO 100% ON 6L VIA MASK. 0928- PT PULLING OFF OXYGEN MASK. ENCOURAGED PT TO TAKE DEEP BREATHS IF SHE IS NOT GOING TO BE ON O2. PT STATES UNDERSTANDING. 0933- PT ASLEEP AND SNORING. OXYGEN SAT DROPPED TO THE HIGH 80'S ON RA. PT AWOKEN AND ENCOURAGED TO COUGH AND DEEP BREATHE. PT IS ABLE TO DO THIS AND OXYGEN SAT INCREASED TO THE HIGH 90'S ON RA. 0937- PT PLACED ON 2L OF O2 VIA NC THE PT DESATS SOON SHE FALLS ASLEEP TO THE HIGH 80'S ON RA. RESP EVEN AND SHALLOW WHEN SLEEPING.
[2019-11-06] MEDS ORDERED: NORCO 5-325 TA1 EACH PO (10:35)
--- NOTE | 2019-11-06 10:36 | NUR ---
LE 1000: 200 ML YELLOW URINE NOTED TO PATIENT'S OVERNIGHT HYLTON BAG. HYLTON BALLOON IS DEFLATED FOR 10 ML FLUID AND HYLTON IS DC WNL. PATIENT TOLERATES THIS WELL.
--- NOTE | 2019-11-06 11:30 | NUR ---
CRACKERS AND MORE ICED WATER GIVEN. PATIENT IS EATING AND DRINKING AND TOLERATING THAT WELL.
--- NOTE | 2019-11-06 12:49 | NUR ---
PATIENT IS UP TO THE BATHROOM WITH MY STANDBY. PATIENT AMBULATES WELL AND VOIDS 250 ML BRIGHT YELLOW URINE AND AMBULATES BACK TO BED. CALL LIGHT IS WITHIN REACH. PATIENT IS WAITING FOR HER SPOUSE TO RETURN FROM RUNNING ERRANDS AND IS ASKING FOR DISCHARGE AT THAT TIME.
--- NOTE | 2019-11-06 13:22 | NUR ---
LE 1310: PATIENT AND SPOUSE GIVEN DISCHARGE INSTRUCTIONS. BOTH VERBALIZE UNDERSTANDING. PATIENT TRANSFERS HERSELF TO THE WHEELCHAIR AND THEN TO PERSONAL VEHICLE AND TOLERATES THAT WELL.
--- NOTE | 2019-11-06 14:38 | NUR ---
PT ALERT, ORIENTED AND SUPPORTED BY HER AARON. PT SEEMS TO BE TAKING EVERYTHING IN STRIDE, JOKING AND FRIENDLY. PT SAID THEY BOTH ARE WAITING FOR DR MOLINA. GAVE BLESSING, DR MOLINA IN TO VISIT. WILL FOLLOW NEEDED
--- NOTE | 2019-11-07 12:51 | PATH ---
[facility] [address] [place], [place] [address] Signed SPECIMEN(S): A UTERUS, CERVIX AND TUBES SPECIMEN SOURCE: A. UTERUS, CERVIX AND TUBES CLINICAL HISTORY: AUB, IUD surveillance, dysmenorrhea, adhesive disease. FINAL PATHOLOGIC DIAGNOSIS: Uterus, cervix, and bilateral fallopian tubes, hysterectomy and bilateral salpingectomy: - Cervix: No histopathologic abnormality. - Endometrium: Inactive endometrium with progestogen effect. - Myometrium: No histopathologic abnormality. - Serosa: No histopathologic abnormality. - Fallopian tubes: No histopathologic abnormality. - Negative for malignancy. NAL:cml:C2NR MICROSCOPIC EXAMINATION: Histologic sections of all submitted blocks are examined by light microscopy. These findings, together with the gross examination, support the pathologic diagnosis. GROSS DESCRIPTION: The specimen, labeled "SM, uterus, cervix and tubes," is received in formalin and consists of a 92 g uterus and cervix. The uterus is previously opened and inked: Black-posterior, blue-anterior by Dr. Ortiz. The uterus measures 5.0 cm cornu to cornu, 3.4 cm anterior-posterior, 6.0 cm superior-inferior with attached up to 2.8 cm cervix. The serosal surface is pink-stockton smooth. The ectocervix measures 4.3 x 4.2 cm and is pink-stockton and smooth. The ectocervix shows a slit-like opening that measures 1.2 cm. Sectioning through the cervix reveals pink-stockton homogeneous tissue. The endometrial cavity measures 2.2 x 3.1 cm and is lined with pink-stockton red, shaggy endometrium. Sectioning through myometrium reveals a trabeculated surface. No masses or discrete lesions are grossly identified. The myometrium measures up to 1.7 cm in thickness. The endometrium measures up to 0.3 cm in thickness. from the uterus within the container are two undesignated fallopian tubes. Both of PATIENT NAME: EL CLARK PATHOLOGY DATE OF : [birth year] REPORT #: [id number] PHYSICIAN: JUSTIN PATHOLOGY PCP: PALLAVI BRITO REPORT IS CONFIDENTIAL AND NOT TO BE RELEASED WITHOUT AUTHORIZATION [facility] [address] [place], [place] [address] Signed them show fimbriae and violaceous and smooth serosa. First fallopian tube measures 6.5 x 0.8 cm. Second fallopian tube measures 6.0 x 0.7 cm. The second tube is inked. Sectioning through fallopian tubes is unremarkable. Cassette summary: (A1) Cervix, group sales representative sections (A2) Endomyometrium, group sales representative sections (A3) Fallopian tubes, group sales representative sections JS (under the direct supervision of a pathologist) The Gross Description was prepared using a voice recognition system. The report was reviewed for accuracy; however, sound-alike word errors, addition and/or deletions may occur. If there is any question about this report, please contact Client Services. PERFORMING LABORATORY: The technical component was performed by [facility] [address] (Prosthetic Dentist: Maral Messer MD; CLIA# [id number]). [facility], [address] [address] (Prosthetic Dentist: Alek Barbosa MD; CLIA# [id number]). Diagnostician: Traci Ortiz MD Pathologist Electronically Signed 11/07/2019 Copies: ~ PATIENT NAME: EL CLARK PATHOLOGY DATE OF : [birth year] REPORT #: [id number] PHYSICIAN: JUSTIN GUILLEN PCP: PALLAVI BRITO REPORT IS CONFIDENTIAL AND NOT TO BE RELEASED WITHOUT AUTHORIZATION
== END 2019-11-06 13:10 | disposition home or self-care (01) ==
LOC: DS 05:40 → OPS 05:40 → DS 06:45 → OPS 13:10
PROVIDERS: Obstetrics & Gynecology
PROC: 0UT94ZZ Resection of Uterus, Percutaneous Endoscopic Approach (ICD-10-PCS; principal; 2019-11-06 06:45)
PROC: 0UT74ZZ Resection of Bilateral Fallopian Tubes, Percutaneous Endoscopic Approach (ICD-10-PCS; 2019-11-06 06:45)
DX: N73.6 Female pelvic peritoneal adhesions (postinfective) (principal); N94.6 Dysmenorrhea, unspecified; N32.89 Other specified disorders of bladder; E06.3 Autoimmune thyroiditis; F17.210 Nicotine dependence, cigarettes, uncomplicated; E03.9 Hypothyroidism, unspecified; Z79.899 Other long term (current) drug therapy; Z88.1 Allergy status to other antibiotic agents
CPT/HCPCS: J0330; J0690; J1100; J1885; J2250; J2300; J2405; J2704; J3475; J7121